=== PATIENT | male | born 1980 | race Caucasian/White ===

== ENCOUNTER 2019-12-31 13:49 | Inpatient (IN) | payer OTHER ==
[~2019-12-31] VITALS: Ht 190.5 cm; Wt 160.1 kg
[~2019-12-31 13:49] MED LIST: ADVIL200 MG PO; BACTRIM 400-801 EACH PO; BACTRIM DS TAB1 EACH PO; BUPRENORPHINE HC8 MG SL; CIPRO500 MG PO; CORTISPORIN EAR10 ML AD; IBUPROFEN800 MG PO; KEFLEX500 MG PO; KETOROLAC TROME10 MG PO; NORCO 5-325 TA1 EACH PO; OXYCODONE HCL5 MG PO; PYRIDIUM200 MG PO; SUBOXONE 8 MG-1 EAC1 SL; VICOPROFEN 2001 EACH PO; ZANAFLEX4 M1 PO
--- OUTSIDE RECORDS SUMMARY | 2019-12-31 13:52 | XMS ---
PreManage Notification: ERIKA SHEIKH Security Gallery Manager Events No recent Security Events currently on file [facility] There are no care providers on record at this time. Keisha has no Care Guidelines for this patient. Jen VISIT COUNT (12 MO.) 1 HOLLI Williamson TOTAL 1 NOTE: Visits indicate total known visits. ED/C VISIT TRACKING (12 MO.) 12/31/2019 13:50 HOLLI Morales OR TYPE: Emergency COMPLAINT: - LT LEG PAIN INPATIENT VISIT TRACKING (12 MO.) No inpatient visits to display in this time frame [email or web address]
[2019-12-31] MEDS ORDERED: VYVANSE70 MG PO (15:52)
--- NOTE | 2019-12-31 17:30 | NUR ---
39 year old male patient admitted to ccu from er via stretcher under DR. CONTRERAS WITH DX OF SEPSIS R/T CELLULITIS OF LEFT LEG. UPON ADMIT IS ALERT, ORIENTED AND COOPERATIVE. C/O SEVERE PAIN IN LEFT LEG. RATES PAIN 10/10. LEFT LEG ELEVATED ON 2 PILLOWS. ADMISSION PROCESS STARTED.
--- NOTE | 2019-12-31 18:00 | NUR ---
TORADOL 30 MG IV GIVEN FOR LEFT LEG PAIN.
--- NOTE | 2019-12-31 21:05 | NUR ---
IN ROOM FOR PATIENT ASSESSMENT. PT STATES PAIN HAS DECREASED IN LEFT LEG TO 5/10 AT THIS TIME. REDNESS IN LEFT LEG EXTENDS UP INTO LEFT INNER THIGH NEAR GROIN. AREA IS WARM AND PAINFUL TO TOUCH. RIGHT LEG HAS SLIGHT PINK DISCOLORATION AND OLD BRUISING. IV FLUIDS INFUSING AT THIS TIME. SCHEDULED MEDICATIONS GIVEN. PT AMBULATED TO BATHROOM WITH STAND BY ASSIST ONLY. BACK IN BED, CALL LIGHT WITHIN REACH. NO FURTHER NEEDS.
--- NOTE | 2019-12-31 22:00 | NUR ---
PT AT THIS TIME IS SLEEPING. V/S ARE WDL, PT DENIES PAIN. LEFT LOWER AND UPPER LEG WAS TRACED. NO NEW CONCERNS NOTED AT THIS TIME.
--- NOTE | 2020-01-01 00:57 | NUR ---
PT HAS A HEADACHE OF 4/10 FOR WHICH PRN TYLENOL WAS GIVEN. TEMP IS 100.1 F AT THIS TIME ALSO. PT DENIES PAIN IN LLE. REDNESS SO FAR HAS HAS STAYED UNCHANGED IN LLE. PEDIS PULSES +1 NON-PITTING EDEMA NOTED IN BILATERAL LOWER LEGS, LEFT HAND AND FOREARM WHICH PT STATED BEING NORMAL FOR HIM. HR IS STILL 100-115. WILL CONTINUE TO MONITOR.
--- NOTE | 2020-01-01 02:03 | EKG ---
[facility] [address] [facility] [place] [address] Signed Sinus tachycardia Right bundle branch block Inferior infarct , age undetermined Abnormal ECG Confirmed by SHAHRZAD CONTRERAS MD ([id number]) on 01/01/2020 2:02:50 AM Electronically Signed By: SHAHRZAD CONTRERAS MD 01/01/20 0203 PATIENT NAME: ERIKA SHEIKH ALAN Electrocardiogram DATE OF : 82 PHYSICIAN: SHAHRZAD CONTRERAS MD REPORT #: [id number] REPORT IS CONFIDENTIAL AND NOT TO BE RELEASED WITHOUT AUTHORIZATION
--- NOTE | 2020-01-01 03:00 | NUR ---
PT IS SLEEPING AT THIS TIME. NO NEW CONCERNS NOTED AT THIS TIME.
--- NOTE | 2020-01-01 04:00 | NUR ---
PT HAS A TEMP OF 101.5 F. TORADOL TO BE GIVEN. BOTH HANDS HAVE SOME EDEMA AND REDNESS PRESENT. WILL CONTINUE TO MONITOR.
--- NOTE | 2020-01-01 05:27 | NUR ---
TURNED OFF IV FLUIDS BECAUSE BILATERAL HANDS ARE SIGNIFICANTLY EDEMATOUS AT THIS TIME. REDNESS ON BOTH HANDS IS UNCHANGED. NO CRACKLES NOTED AT THIS TIME.
--- NOTE | 2020-01-01 07:30 | NUR ---
REPORT RECIEVED. PATIENT IS RESTFUL IN BED.
--- NOTE | 2020-01-01 08:00 | NUR ---
ASSESSMENT DONE. TALKED WITH PATIENT ABOUT PLAN OF CARE FOR DAY, INDICATES UNDERSTANDING. LEFT LEG ELEVATED ON PILLOWS. ARLEY LONDONO.
--- NOTE | 2020-01-01 10:10 | NUR ---
up to bathroom to HAVE BM AND VOID 750 ML OF DARK ALEXI URINE. IS STABEL ON FEET. PATIENT SOMEWHAT TEARY WISHES TO GO HOME. DR. CONTRERAS AWARE.
--- NOTE | 2020-01-01 12:00 | NUR ---
assessment done. REFUSING LUNCH. WILL BE TRANSFERED TO MED-SURG THIS AFTERNOON.
--- NOTE | 2020-01-01 14:21 | NUR ---
SARA NOGUERA FELT IT WOULD BE BEST IF I WAIT TO VISIT PT-RESTING. WILL FOLLOW NEEDED
--- NOTE | 2020-01-01 14:45 | NUR ---
AMBULATED TO [facility]. TOLERATED WELL. DENIES SHORTNESS OF BREATH .
--- NOTE | 2020-01-01 15:00 | NUR ---
Patient arrives to unit ambulatory with a steady gait and SBA. Patient to bed with magnesium running at 50mls/hr. Patient vitals taken and assessment complete. Reports pain of 4/10, prn pain medication given (see MAR). Denies further needs, call light within reach.
--- NOTE | 2020-01-01 16:00 | NUR ---
Lab in room for blood draw for [facility]. Patient laying in bed watching tv. Family in room. Denies needs at this time, call light within reach.
--- NOTE | 2020-01-01 17:00 | NUR ---
Patient laying in bed watching tv. Denies pain, no needs at this time. Call light within reach.
--- NOTE | 2020-01-01 18:40 | NUR ---
Patient reports burning at IV site with IV vanco running. Infusion stopped. New IV site being assessed.
--- NOTE | 2020-01-01 19:02 | NUR ---
SHIFT REPORT RECEIVED FROM RN GRIS AT BEDSIDE. PT AWAKE AND RESTING IN BED. SCHEDULED VANCO HANGING AT BEDSIDE DUE TO PAIN WHEN INFUSING ON , ED RN TO COME AND ATTEMPT NEW IV START. PT DENIES FURTHER NEEDS, REDDNESS TO LLE OUTLINED WITH SKIN MARKER, WILL MONITOR. BOARD UPDATE, CALL LIGHT IN REACH. PT DENIES PAIN AT THIS TIME.
--- NOTE | 2020-01-01 19:51 | NUR ---
ED RN UNABLE TO PLACE NEW IV, RETURNED ITEM CLERK MAYGAN IN ROOM TO ATTEMPT. PT DENIES ADDITIONAL NEEDS, CURRENTLY RESTING IN BED.
--- NOTE | 2020-01-01 20:00 | NUR ---
NEW IV PLACED AND IV VANCO INFUSING BY CRM ANALYST KIM.
--- NOTE | 2020-01-01 21:00 | NUR ---
ASSESSMENT COMPLETE, SCHEDULED MEDS GIVEN (SEE EMAR). IV VANCO INFUSING, SITE WNL. PT DENIES PAIN AT SITE WELL IN GENERAL. VSS, APICAL HR 110. WILL MONITOR. PT DNEIES SOB OR CHEST PAIN. OUTLINES REDDNESS REMAINS THE SAME FROM BEGINNING OF SHIFT, MIMIALLY PAST INITIAL OUTLINE. REOUTLINED BY THIS RN. WILL MONITOR. LLE WARMER TO THE TOUCH COMPARED TO RLE. LLE ELEVATED WITH USE OF PILLOWS. PT DENIES FURTHER NEEDS, CALL LIGHT IN REACH.
--- NOTE | 2020-01-01 21:57 | NUR ---
ORDER PLACED TO BE CONSIDERED FOR PICC LINE DUE INABILITY TO SUCCESSFULY START AND MAINTAIN IV ACCESS DUE TO VEIN STATUS.
--- NOTE | 2020-01-01 22:45 | NUR ---
IV VANCO COMPLETE, SCHEDULED IV ANCEF INFUSING (SEE EMAR). PT DENIES PAIN, IV SITE WNL. AFTER ANCEF WAS COMPLETE, PT SALINE LOCKED. NO FURTHER NEEDS, CALL LIGHT IN REACH.
--- NOTE | 2020-01-02 00:53 | NUR ---
PT RESTING IN BED WITH EYES CLOSED. RR WNL, NO SIGNS OF PAIN OR DISTRESS NOTED. CALL LIGHT IN REACH OF PT.
--- NOTE | 2020-01-02 01:30 | NUR ---
PT RESTING IN BED WITH EYES CLOSED, RESPIRATIONS EVEN AND UNLABORED. NO DISTRESS NOTED. CALL LIGHT IN REACH.
--- NOTE | 2020-01-02 03:22 | NUR ---
PT RESTING IN BED WITH EYES CLOSED, RESPIRATIONS EVEN AND UNLABORED. RATE, 16. PT APPEARS COMFORTABLE, CALL LIGHT IN REACH.
--- NOTE | 2020-01-02 04:00 | NUR ---
scheduled iv vanco infusing (see emar). iv site wnl, blood return noted. pt denies pain w/ infusion. assessment complete, no new changes or concerns. pt reports 3/10 pain in lle, prn toradol and prn tylenol both administered per pt request (see emar). no changes in lle appearance, ble remain elevated with use of pillows. pt voided 600mls dark yellow urine. gatorade provided per pt request, no further needs, call light in reach.
--- NOTE | 2020-01-02 04:58 | NUR ---
PT RESTING IN BED WITH EYES CLOSED. IV VANCO INFUSING AT 275MLS/HR, SITE WNL. CALL LIGHT IN REACH.
--- NOTE | 2020-01-02 05:02 | NUR ---
NEW IV PLACED BY HEREDITARY CANCER PROGRAM COORDINATOR AT BEGINNING OF SHIFT D/T BURNING WITH VANCO INFUSION. NEW IV SITE WNL, BLOOD RETURN NOTED. SALINE LOCKED WITH SCHEDULED IV VANCO AND IV ANCEF. PAIN CONTROLLED WITH PRN TORADOL X1 AND PRN TYLENOL X1. USES CALL LIGHT APPROPERIATELY, SBA WITH AMBULATION. REGULSR DIET, TOLERATING WELL. NO NAUSEA REPORTED AND VOIDING QS. NO CHANGE SINCE BEGINNING OF SHIFT IN APPEARANCE TO LLE.
--- NOTE | 2020-01-02 06:04 | NUR ---
VSS, PT DENIES PAIN. IV ABX INFUSING, SITE WNL. ROOM TIDED, NO FURTHER NEEDS VERBALIZED. CALL LIGHT IN REACH.
--- NOTE | 2020-01-02 06:29 | NUR ---
SCHEDULED IV ANCEF INFUSING (SEE EMAR), SITE WNL. PT DENIES PAIN AT SITE, FLUSHES EASILY. PT VERY DIFFICULT STICK AND POKED MANY TIMES DUE TO LOSS OF PREVIOUS IV SITES. DISCUSSED WITH WASH PLANT OPERATOR, PUMP PROGRAMED TO BE TKO AFTER IV ABX INFUSION, RATE 15MLS/HR. PT HAS PICC CONSULT ORDER IN PLACE. NO FURTHER NEEDS, CALL LIGHT IN REACH.
--- NOTE | 2020-01-02 07:53 | NUR ---
PT AWAKE EARLY THIS AM, UP TO BATHROOM TO VOID, KEEPING LLE ELEVATED, REDNESS HAS DECREASED. PT REPORTS PAIN IN MUCH BETTER, STATES HE WANTS TO GO HOME TODAY, AGREED TO TALK TO MD FIRST. IV IS TAPED SECURELY MARYLU, KEEPING AT TKO RATE TO MAINTAIN PATIENT IS A VERY DIFFICULT START. SPOKE WITH DAVID THIS MORNING AND PLAN IS FOR MID-LINE PLACEMENT LATER THIS AM. BREAKFAST ORDERED. CALL LIGHT IN EASY REACH.
--- NOTE | 2020-01-02 09:27 | NUR ---
MED REC COMPLETE
--- NOTE | 2020-01-02 10:05 | NUR ---
PT RESTING IN BED. STATED "I WANT TO GO HOME" AND TEARFUL. DISCUSSED WAITING UNTIL AFTER SHOWER TO APPLY NICODERM PATCH. PT AGREABLE TO SHOWERING BEFORE LUNCH. BREATHING UNLABORED AND REGULAR.
--- NOTE | 2020-01-02 11:44 | NUR ---
PT DECLINED LUNCH AND IS RESTING.
--- NOTE | 2020-01-02 12:57 | NUR ---
SCHEDULED VANCOMYCIN DOSE INFUSING, PT WOKE BRIEFLY TO DENY ANY NEEDS OR PAIN, KEEPING LLE ELEVATED, PULLED BLANKET OVER HEAD AND STATED I JUST WANT TO BE LEFT ALONE SO I CAN SLEEP. CALL LIGHT IN EASY REACH.
--- NOTE | 2020-01-02 13:19 | NUR ---
PT RESTING IN BED, WATCHING TV. PT SEEMS SOMEWHAT SKEPTICAL OF ME, BUT DID INVITE ME IN. PT IS OBVIOUSLY FRIGHTENED, WORKED TO CALM HIS FEARS. GOT PT TO SHARE WITH ME SOMEONE OUTSIDE TOLD HIM HE COULD HAVE A PICCLINE AND GET TO B DC'D AND ADMINISTER MEDS HIMSELF. HE STATES OFTEN "I WANT TO GO HOME" SHARED WITH PT MY EXPERIENCE, CALMED HIM SOME AND SHARED THE IMPORTANCE OF PROPER TREATMENT. PT REQUESTED PRAYER, THANKED ME FOR COMING IN. WILL ALSO FOLLOW UP.
--- NOTE | 2020-01-02 15:42 | NUR ---
JORI-RN HERE FOR MID-LINE PLACEMENT, PT CALM AND AGREES TO PLACEMENT.
--- NOTE | 2020-01-02 15:56 | NUR ---
1330 In room to round on patient. Patient currently in tears, states he "hates it here and just wants to leave". [facility] student nurse also in room at this time. Discussed Dario's feelings with him, and he allowed me to look at his left leg and foot. It is noted that the redness in his lef and foot is extended beyond the marker lines that have been made previously, but while on antibiotics per Dario's comments. It is also noticed that his lower left extremity is swollen. I again let Dario share his feelings of wanting to leave and then re-interated the importance of him staying and getting proper medical treatment. I am not sure that he will not leave against medical advice (AMA) based on his remarks in our conversation, but I definately encouraged him to listed to the advice of the hospitalist as our goal is for successful healing and a safe discharge. Dario did say that he was happy with the care that the nurses have been providing.
--- NOTE | 2020-01-02 16:45 | NUR ---
MIDLINE INSERTION NOTE WAS ASKED TO ASSESS PT FOR MIDLINE PLACEMENT PT HAS POOR ACCESS AND IS DIFFICULT TO OBTAIN IV ACCESS. PT NEEDING IV VANCOMYCIN. DISCUSSED WITH PT'S NURSE AND DR. CONTRERAS ABOUT PT'S USE OF ILLICIT DRUGS AND MY CONCERNS ABOUT PLACING A LINE THAT THE PT COULD GO HOME WITH. BOTH PARTIES STATE THE MIDLINE WILL BE TAKEN OUT BEFORE THE PT LEAVES THE HOSPITAL. OBTAINED VERBAL CONSENT FROM THE PT ABOUT PLACING THE LINE, RISKS AND BENEFITS. PT IS AGREEABLE AND WILLING TO PROCEED. PT'S LEFT ARM ASSESSED PT HAS AN ACTIVE IV IN HIS RIGHT UPPER ARM. PT'S BASILIC AND BRACHIAL VEINS WERE IDENTIFIED. UNABLE TO IDENTIFY PT'S CEPHALIC. THE BRACHIAL VEIN WAS MUCH LARGER THAN THE BASILIC VEIN AND APPEARED TO BE THE BEST OPTION. ACCORDING TO THE [facility] IT WAS LARGER THAN AN 8 FR. PT'S VEIN WAS DIFFICULT TO ACCESS AND TOOK 3 ATTEMPTS. THE PT'S VEINS WERE DEEP AND REQUIRED A LONGER IV TO ACCESS AND WAS DIFFICULT TO THREAD UP THE VEIN. BLOOD WAS RETURNED AND THE GUIDEWIRE ADVANCED ALONG WITH THE INTRODUCER AND THE MIDLINE. BLOOD RETURNED EASILY FROM THE INTRODUCER WELL. THE MIDLINE WAS SECURED AND A PRESSURE DRESSING OF GAUZE AND COBAN PLACED OVER THE TOP OF THE DRESSING THE INSERTION SITE WAS LEAKING. YOLANDA MITCHELL RN GIVEN REPORT AND EDUCATED THE DRESSING WOULD NEED TO BE CHANGED IN THE NEXT 24 HOURS. ALL QUESTIONS ANSWERED. PT TOLERATED THE PROCEDURE WELL. EDUCATION BOOKLETS PROVIDED.
--- NOTE | 2020-01-02 18:20 | NUR ---
PT TOLERATED MIDLINE PLACEMENT WELL. AMBULATED TO BR, UP IN CHAIR. AGREEABLE AND ENGAGED WITH CARE. AFFECTED LEG ELEVATED BY PILLOWS. REDNESS DOES NOT APPEAR TO HAVE RECEDED FROM AM. FAMILY BY THE BEDSIDE. PT DECLINED DINNER, EATING MCDONALDS INSTEAD.
--- NOTE | 2020-01-02 18:39 | NUR ---
MIDLINE PLACED, PATENT, 2CM EXPOSED, 39CM ARM CIRCUMFERENCE. CURRENTLY HAS DRSG AND WRAP ON UNSUCCESSFUL START SITE TO PREVENT BLEEDING. PT TOLERATED PROCEDURE WELL.
--- NOTE | 2020-01-02 21:52 | NUR ---
PT RESTING IN BED, A&O X4. PT HAS LEFT LEG ELEVATED ON A PILLOW. LEFT LOWER LEG REDENNED AREA MARKED WITH PEN; SUPERIOR MARKED AREA PINK AND RECEDING A BIT. LOWER LEFT LEG REGION IS RED AND HOT TO TOUCH; REDNESS IN LOWER REGION REMAINS MOSTLY WITHIN MARKED BORDERS. PT REPORTS PAIN TO TOUCH IN LLE. PEDAL PULSE INTACT BILAT.
--- NOTE | 2020-01-02 22:39 | NUR ---
PT REPORTS PAIN TO LEFT MIDLINE SITE. IV FLUIDS STOPPED AT THIS TIME. SITE APPEARS SWOLLEN AND SMALL AMOUNT OF BLOOD LEAKING FROM DRESSING. LEFT ARM ELEVATED AND WARM COMPRESS APPLIED. CMS INTACT TO LEFT ARM.
--- NOTE | 2020-01-02 23:19 | NUR ---
PT REQUESTING SHOWER AT THIS TIME. SHOWER ROOM SET UP FOR PT. ENCOURAGED PT TO CALL STAFF WHEN HE IS DONE.
--- NOTE | 2020-01-02 23:52 | NUR ---
LEFT MIDLINE INFILTRATED. PT REPORTING INTOLERABLE PAIN AT SITE. UNABLE TO PULL BACK BLOOD. MEASURED ARM 40CM. CATHETER TIP INTACT UPON REMOVAL; 20CM IN LENGTH. PT TOLERTED REMOVAL WELL. ARM ELEVATED, WARM COMPRESS APPLIED. SPOTTER DRIVER IN TO ATTEMPT NEW IV SITE.
--- NOTE | 2020-01-03 00:15 | NUR ---
ATTEMPTED X2 TO ESTABLISH PIV. UNSUCCESSFUL. BEDSIDE RN NOTIFIED.
--- NOTE | 2020-01-03 00:17 | NUR ---
DR. CONTRERAS MADE AWARE THAT MIDLINE INFILTRATED. ALSO NOTIFIED DR. CONTRERAS THAT PT DID NOT RECEIVE APPROX 1/3 OF LAST DOSE OF VANCO IV D/T IV GOING BACK MID INFUSION. ORDER CLERK UP TO SEE PT AND ATTEMPTED IV START X2; BOTH UNSUCCESSFUL. WILL CONTINUE TO MONITOR.
--- NOTE | 2020-01-03 06:49 | NUR ---
VITALS AND I&OS DONE AND CHARTED. EMPTIED ALL GARBAGES. CLEANED UP ROOM. BEDSIDE TABLE AND CALL LIGHT IN REACH.
--- NOTE | 2020-01-03 07:20 | NUR ---
Bedside report received, orders acknowledged. Patient laying in bed awake. Denies pain in left lower extremity. Denies further needs at this time, call light within reach.
--- NOTE | 2020-01-03 09:45 | NUR ---
Patient laying in bed watching tv. Denies pain in left lower extremity. Vital signs taken, assessment complete. Denies further needs at this time, call light within reach.
--- NOTE | 2020-01-03 10:28 | NUR ---
PT RESTING IN BED. AMBULATED TO SHOWER; LINENS CHANGED. PT STATED HAVING 3/10 PAIN RELATED TO HEADACHE RADIATING TO SCALP. ADMINISTERED 650 MG TYLENOL. WILL REASSESS WHEN PT AWAKES.
--- NOTE | 2020-01-03 11:30 | NUR ---
Patient sleeping in bed, respirations even and unlabored. Call light within reach.
--- NOTE | 2020-01-03 12:15 | NUR ---
Patient sitting up in bed eating lunch and watching tv. Reports "I'm so frustrated, I'm ready to leave and go to [facility]. I'm not even getting IV antibiotics!" POC is discussed with patient regarding Dr. Abarca's consult for a central line and the priority of his care for administering IV abx. Patient is agreeable to the POC. Denies further needs at this time, call light within reach.
--- NOTE | 2020-01-03 12:23 | NUR ---
PT RESTING AFTER LUNCH. STATED HE IS FRUSTRATED WAITING FOR ANTIBIOTICS. REASSURED BY PRIMARY RN THAT DR LEON WILL CONSULT WITH PATIENT ON CENTRAL LINE. HEADACHE RESOLVED BUT SCALP PAIN CONTINUES 2/10 RATING. PT STATES REST HELPS. NO PAIN IN LLE; REDNESS AT DRAWN BOUNDARY; NO VISABLE IMPROVEMENT. NO SWELLING OR HEAT AT MIDLINE INSERTION SITE. EXPIRATORY WHEEZING IN LOWER RIGHT LOBE. CALL LIGHT IN REACH.
--- NOTE | 2020-01-03 14:00 | NUR ---
Patient sleeping in bed, respirations even and unlabored. Call light within reach.
--- NOTE | 2020-01-03 15:00 | NUR ---
Patient leaves unit via hospital bed to OR for central line placement
--- NOTE | 2020-01-03 16:30 | NUR ---
Patient returned to floor from OR. Triple lumen IJ placed. Father at bedside. IV ancef and IV vanco hung and infusing. Patient requests warm wipes for legs and lower back which are provided. Denies further needs, call light within reach.
--- NOTE | 2020-01-03 17:30 | NUR ---
Patient laying in bed watching tv. Dinner delivered. Denies needs at this time, call light within reach.
--- NOTE | 2020-01-03 20:00 | NUR ---
PATIENT RESTING QUIETLY WATCHING TV, CALL LIGHT IN REACH, NO NEEDS AT THIS TIME.
--- NOTE | 2020-01-03 22:06 | NUR ---
PATIENT HAVING SOME LOW BACK PAIN AND GOT TYLENOL WITH EVENING MEDS. IJ DRAWS AND FLUSHES WELL, HE LOCKED AFTER 20MLS NS. PATIENT HAD NO OTHER NEEDS AT THIS TIME, LEGS ELEVATED ON PILLOWS. CALL LIGHT IN REACH.
--- NOTE | 2020-01-03 22:58 | NUR ---
PATIENT RESTING QUIETLY SUPINE, EYES CLOSED, RESPIRATIONS REGULAR AND NORMAL, CALL LIGHT IN REACH.
--- NOTE | 2020-01-04 01:07 | NUR ---
PATIENT RESTING QUIETLY, 0100 IV MEDS HUNG, CALL LIGHT IN REACH.
--- NOTE | 2020-01-04 03:05 | NUR ---
PATIENT RESTING QUIETLY IN BED, RESPIRATIONS REGULAR AND EVEN AND CALL LIGHT IN REACH.
--- NOTE | 2020-01-04 03:56 | NUR ---
PATIENT JUST UP TO THE BATHROOM INDEPENDENT AND VOIDED AND HAD MEDIUM LIQUID MUCOID STOOL. WARM PACK AND TYLENOL GIVEN FOR 5/10 BACK PAIN. CALL LIGHT IN REACH, PATIENT BACK IN BED AND TRYING TO GET MORE SLEEP.
--- NOTE | 2020-01-04 06:17 | NUR ---
GAVE PATIENT'S AM IV MEDS AND FLUSHED WITH 20MLS NS TO LOCK UP THE PORT. PATIENT SAID THIS HAS BEEN THE BEST NIGHTS SLEEP HE HAS HAD SINCE HE HAS BEEN HERE. HE HAS BEEN UP TO THE BATHROOM INDEPENDENTLY, HAS A WARM PACK ON HIS BACK AND SAYS HE IS "FEELING PRETTY GOOD RIGHT NOW." CALL LIGHT IS IN REACH AND HE IS GOING TO TRY AND GET SOME MORE SLEEP.
--- NOTE | 2020-01-04 06:47 | OR ---
[facility] [address] [place], [place] [address] Signed DATE OF OPERATION: 01/03/2020 SURGEON: Nighat Leon MD PREOPERATIVE DIAGNOSES: 1. Lack of peripheral IV access. 2. Left lower extremity cellulitis. 3. Morbid obesity. 4. Obstructive sleep apnea. POSTOPERATIVE DIAGNOSES: 1. Lack of peripheral IV access. 2. Left lower extremity cellulitis. 3. Morbid obesity. 4. Obstructive sleep apnea. PROCEDURES: 1. Placement of right internal jugular triple-lumen catheter. 2. Physician-directed ultrasound. ESTIMATED BLOOD LOSS: Minimal. INDICATIONS: Dario is a 39-year-old morbidly obese gentleman, who unfortunately developed significant cellulitis of his left lower extremity. He has been in the hospital requiring IV antibiotics including vancomycin. He has been very difficult for his peripheral access given his previous drug abuse. In fact, he had a midline yesterday and it was not functioning well, so the nurses had removed it during the night. I have been asked as a general surgeon on-call to place a central venous catheter for Dario. I met with Dario and explained him given his size, his very heavy full neck, it was best we do this down in the operating room under controlled conditions with our ultrasound and my OR nursing staff to help. I reviewed with him the nature of a central venous catheter in the concept of the ultrasound guidance. He understands the nature of a central venous catheter. He understands there is risk including, but not limited to bleeding, infection, catheter embolization, air embolism, and pneumothorax requiring chest tube placement. He expressed understanding and wished to proceed. PROCEDURE NOTE: Dario was taken to the operating room and was placed in the supine Trendelenburg Electronically Signed By: NIGHAT LEON MD 01/04/20 0647 PATIENT NAME: DARIO SHEIKH OPERATIVE REPORT DATE OF : 82 REPORT #: [id number] PHYSICIAN: NIGHAT LEON MD PCP: NO PRIMARY CARE PHYSICIAN REPORT IS CONFIDENTIAL AND NOT TO BE RELEASED WITHOUT AUTHORIZATION [facility] [address] [place], [place] [address] Signed position. He was already on preoperative antibiotics. His entire right neck and chest wall were prepped and draped in the usual sterile fashion. The ultrasound was used to find his internal jugular vein and carotid artery. Local anesthetic was injected in the subcutaneous tissues. Dario has a very thick neck and his jugular vein is almost 3 cm deep, may be a little more. We had accessed the vein on our first try and then we lost a lumen. On our second try, we had pulsatile blood, so we had to hold pressure for 5 minutes. After that, we moved down the neck just a bit and injected some additional local anesthetic to reassess the internal jugular vein and carotid artery. We then passed the needle under direct visualization ultrasound directly into the internal jugular vein and on this occasion, we were able to maintain the lumen and man back nonpulsatile dark venous blood. We took him out of Trendelenburg and then we had passed a wire without difficulty. The tract was dilated and a dilator tract passed along the correct direction without any resistance. A triple-lumen catheter was inserted up to 18 cm at the neck and each port was able to draw and flush quite readily. We instilled concentrated heparin in all three lumens. After this, the catheter was held in place on his neck with interrupted silk sutures. Dry plastic occlusive dressing was applied per nursing staff. We then performed a portable chest x-ray and the catheter was in good position, although very high in the superior vena cava if not slightly above it. There was no evidence of pneumothorax. I explained to Dario this would be fine for his IV antibiotics. No need to reposition the catheter. After this, Dario was transferred over to his hospital bed and taken down to his room in stable condition. Nighat Leon MD ALB/MODL /[id number] cc: MD Nighat Ruffin MD Copies: DEANNE DANIEL MD Electronically Signed By: NIGHAT LEON MD 01/04/20 0647 PATIENT NAME: DARIO SHEIKH OPERATIVE REPORT DATE OF : 82 REPORT #: [id number] PHYSICIAN: NIGHAT LEON MD PCP: NO PRIMARY CARE PHYSICIAN REPORT IS CONFIDENTIAL AND NOT TO BE RELEASED WITHOUT AUTHORIZATION [facility] [address] [place] [address] [place], [place] [address] Signed NIGHAT LEON MD ~ Electronically Signed By: NIGHAT LEON MD 01/04/20 0647 PATIENT NAME: DARIO SHEIKH OPERATIVE REPORT DATE OF : 82 REPORT #: [id number] PHYSICIAN: NIGHAT LEON MD PCP: NO PRIMARY CARE PHYSICIAN REPORT IS CONFIDENTIAL AND NOT TO BE RELEASED WITHOUT AUTHORIZATION
--- NOTE | 2020-01-04 07:21 | NUR ---
Report received, orders acknowledged. Patient reports "I slept great." Denies needs at this time, call light within reach.
--- NOTE | 2020-01-04 08:15 | NUR ---
Patient laying in bed watching tv. Breakfast delivered. AM medications given, assessment complete. Patient reports pain of 3/10 in back of neck, prn acetaminophen given. No further needs, call light within reach.
--- NOTE | 2020-01-04 10:30 | NUR ---
Patient sleeping in bed, respirations even and unlabored. Call light within reach.
--- NOTE | 2020-01-04 10:36 | NUR ---
PATIENT IN BED RESTING, RN IN ROOM. CALL LIGHT IN REACH. NO FURTHER NEEDS AT THIS TIME.
--- NOTE | 2020-01-04 12:15 | NUR ---
Patient laying in bed watching tv. Reports family is bringing lunch for patient. IV vanco infusing currently. Denies needs at this time, call light within reach.
--- NOTE | 2020-01-04 13:35 | NUR ---
Patient requests shower from waist down, all supplies set up in room. Importance of keeping central line clean, dry, and intact discussed. Denies further needs, call light within reach.
--- NOTE | 2020-01-04 14:51 | NUR ---
PATIENT IN BED WATCHING TV. VISITORS IN ROOM. CALL LIGHT IN REACH. NO FURTHER NEEDS AT THIS TIME.
--- NOTE | 2020-01-04 15:46 | NUR ---
Patient laying in bed watching tv. IV abx finished infusing. Denies needs at this time, call light within reach.
--- NOTE | 2020-01-04 17:30 | NUR ---
Patient sleeping in bed, respirations even and unlabored. Call light within reach.
--- NOTE | 2020-01-04 18:39 | NUR ---
PATIENT IN BED EATING DINNER. CALL LIGHT IN REACH. NO FURTHER NEEDS AT THIS TIME.
--- NOTE | 2020-01-04 19:00 | NUR ---
RECEIVED REPORT FROM SARA LANDRY. pt RESTING IN BED REQUESTED A SHOWER PRIOR TO BED. NO FURTHER REQUESTS. DENIES PAIN AT THIS TIME. WHITEBOARD UPDATED. CALL LIGHT WITHIN REACH.
--- NOTE | 2020-01-04 21:19 | NUR ---
TEAM FOREMAN ROUNDING NOTE. PT RESTING IN BED. STATES THAT HE IS DONE WITH HIS FOOD TRAY, TRAY REMOVED FROM ROOM. PT DENIES FURTHER NEEDS AT THIS TIME. CALL LIGHT IN REACH. WHITE BOARD UPDATED.
--- NOTE | 2020-01-04 21:58 | NUR ---
ASSESSMENT DONE. VITALS AND I&O ENTERED. MEDICATIONS GIVEN (SEE MAR). pt REPORTED 4/10 HEADACHE AND BACK PAIN. REDNESS ON LLE WELL WITHIN THE OUTLINE, DENIES PAIN IN EXTREMITY. NICODERM PATCH REMOVED. BLOOD RETURN NOTED ON ALL LUMENS OF CENTRAL LINE. HEP LOCKED PER PROTOCOL. NO REQUESTS AT THIS TIME. CALL LIGHT WITHIN REACH.
--- NOTE | 2020-01-04 23:37 | NUR ---
ROUNDED ON pt. RESTING WITH EYES CLOSED, RESPIRATIONS REGULAR AND UNLABORED. CALL LIGHT WITHIN REACH.
--- NOTE | 2020-01-05 01:06 | NUR ---
VANCO INFUSING (SEE MAR). pt RESTING WITH EYES CLOSED, RESPIRATIONS REGULAR. CALL LIGHT WITHIN REACH.
--- NOTE | 2020-01-05 03:27 | NUR ---
IV ABX INFUSION COMPLETED. SL. ASSESSMENT DONE. NO CHANGES. NO REQUESTS AT THIS TIME. CALL LIGHT WITHIN REACH.
--- NOTE | 2020-01-05 05:51 | NUR ---
IV ABX INFUSED (SEE MAR). VITALS AND I&O RECORDED. PRN MED FOR 02/27 HEADACHE. NO FURTHER REQUESTS AT THIS TIME. CALL LIGHT WITHIN REACH.
--- NOTE | 2020-01-05 07:10 | NUR ---
Bedside report received, orders acknowledged. Patient sleeping, respirations even and unlabored. Call light within reach.
--- NOTE | 2020-01-05 08:30 | NUR ---
Patient sleeping in bed, rouses to voice. Lab in room, vanco trough drawn. AM medications given. Patient reports pain of 2/10 on his scalp, pain level is acceptable. Breakfast delivered. Patient states "I didn't sleep well last night, I'd like to snooze a little bit longer." Vital signs taken, assessment complete. Denies further needs at this time, call light within reach.
--- NOTE | 2020-01-05 09:49 | NUR ---
PATIENT IN BED RESTING. PATIENT WANTS TO TAKE SHOWER, SHOWER SET UP. CALL LIGHT IN REACH. NO FURTHER NEEDS AT THIS TIME.
--- NOTE | 2020-01-05 11:30 | NUR ---
Patient up to shower independently, supplies provided.
--- NOTE | 2020-01-05 12:00 | NUR ---
Patient returned to bed, IV vanco infusing. Denies needs at this time, call light within reach.
--- NOTE | 2020-01-05 12:30 | NUR ---
Patient reports sharp chest pain. Vital signs taken. BP of 150/81 and pulse of 96, SpO2 of 95%. Heart sounds regular, lungs sounds equal bilaterally. auctioneer tobacco and Dr. Beltre notified. Stat EKG ordered. Patient reports pain subsided after several seconds. Call light in reach.
--- NOTE | 2020-01-05 12:45 | NUR ---
RT in room performing EKG
--- NOTE | 2020-01-05 13:43 | NUR ---
PATIENT SHOWERED, IND. NEW GOWN PROVIDED. PATIENT IN BED RESTING NOW. FRESH WATER GIVEN. CALL LIGHT IN REACH. NO FURTHER NEEDS AT THIS TIME.
--- NOTE | 2020-01-05 15:47 | NUR ---
Patient sleeping in bed, respirations even and unlabored. Rouses to voice. IV abx finished infusing. Central line flushes and draws blood per protocol, heparin-locked. Patient up to toilet voiding. Denies needs at this time, call light within reach.
--- NOTE | 2020-01-05 17:28 | NUR ---
Patient sleeping in bed, rouses to voice. IV endy jacobo, infusing at 275 mls/hr. Patient denies needs at this time, call light within reach.
--- NOTE | 2020-01-05 18:11 | EKG ---
[facility] [address] [facility] [place], [place] [address] Signed Normal sinus rhythm Nonspecific intraventricular block Abnormal ECG When compared with ECG of 31-DEC-2019 14:28, No significant change was found Confirmed by DALLIN MATOS DO ([id number]) on 01/05/2020 6:11:29 PM Electronically Signed By: DALLIN MATOS DO 01/05/20 181 PATIENT NAME: ERIKA SHEIKH Electrocardiogram DATE OF : 82 PHYSICIAN: DALLIN MATOS DO REPORT #: [id number] REPORT IS CONFIDENTIAL AND NOT TO BE RELEASED WITHOUT AUTHORIZATION
--- NOTE | 2020-01-05 18:15 | NUR ---
PATIENT IN BED RESTING WITH EYES CLOSED. CALL LIGHT IN REACH. NO FURTHER NEEDS AT THIS TIME.
--- NOTE | 2020-01-05 19:10 | NUR ---
BEDSIDE REPORT RECEIVED FROM OFFGOING SARA LANDRY.
--- NOTE | 2020-01-05 22:52 | NUR ---
PT ASSESSMENT COMPLETE. PT RESTING IN BED WATCHING TV. PT RATES PAIN 3/10. DENIES PAIN MEDICATION. PT DENIES NAUSEA OR SOB. PT STATES THAT HE WOULD LIKE TO TAKE A SHOWER. SUPPLIES GATHERED AND LEFT IN THE BATHROOM. LLE WITH REDNESS WITHIN OUTLINE AREA. 2+ PITTING EDEMA PRESENT TO LLE. CMS INTACT. PT DENIES FURTHER NEEDS AT THIS TIME. CALL LIGHT IN REACH.
--- NOTE | 2020-01-05 23:45 | NUR ---
PT RESTING IN BED WITH EYES CLOSED. DOES NOT WAKE WHILE ROLLER LEVELER OPERATOR IN THE DOORWAY. CALL LIGHT IN REACH.
--- NOTE | 2020-01-06 01:41 | NUR ---
WRTIER TO ROOM FOR SCHEDULED MEDICATION ADMINISTRATION. PT STATES THAT HE FEELS EXCITED TO GO HOME TOMORROW, THINKS THIS IS KEEPING HIM AWAKE. WARM COMPRESS AND GATORADE PROVIDED. PT DENIES FURTHER NEEDS AT THIS TIME. CALL LIGHT IN REACH.
--- NOTE | 2020-01-06 03:30 | NUR ---
GUARD MUSEUM TO ROOM FOR PUMP ALARMING. ABX FINISHED. PT DOES NOT WAKE WHILE GUARD MUSEUM IN ROOM. CALL LIGHT IN REACH.
--- NOTE | 2020-01-06 05:08 | NUR ---
PT AWAKE MOST OF SHIFT, STATES "TOO EXCITED ABOUT GOING HOME TO SLEEP". DENIES PAIN, NAUSEA, OR SOB. REDNESS TO LLE WITHIN OUTLINE AREA. PITTING EDEMA, 2+, PRESENT TO LLE. PT UP TO SHOWER THIS SHIFT. PASCUAL TUBBS. IJ, HEP LOCKED. UO QS.
--- NOTE | 2020-01-06 05:54 | NUR ---
PT ASSESSMENT COMPLETE. PT DENIES PAIN, NAUSEA, OR SOB. PT WITH REDNESS TO LLE WITHIN OUTLINED AREA. EDEMA CONTINUES TO LLE, 2+. PT DENIES NEEDS AT THIS TIME. CALL LIGHT WITHIN REACH.
--- NOTE | 2020-01-06 08:00 | NUR ---
PT LYING IN BED APPEAS TO BE SLEEPING SOUNDLY, EYES CLOSED, RESP EVEN AND UNLABORED.
--- NOTE | 2020-01-06 09:15 | NUR ---
PT APPEARS TO BE SLEEPING UPON THIS RN ENTERING ROOM. AWOKE EASILY TO VOICE. PT DENIES PAIN OR OTHER CONCERNS AT THIS TIME. ALERT AND ORIENTED TO ALL. LEFT LOWER EXTREMITY MARKED WITH SURGICAL MARKER. MINIMAL REDNESS NOTED AND ALL WITHIN BORDERS, SLIGHLTY WARM TO THE TOUCH. RIGHT IJ DRESSING CDI, ALL THREE LUMENS FLUSH EASILY AND GOOD BLOOD RETURN NOTED. IV VANCO STARTED. ASSESSMENT COMPLETED. CALL LIGHT WITHIN REACH.
--- NOTE | 2020-01-06 10:15 | NUR ---
Dario lives in [place] with his parents and his girlfriend. Denies current needs or use of DME. Wants to go home today. Does not use food bank or [facility]. See Dr[facility] for buprenoprhine therapy. Does not have pcp and states he will establish with anyone. Called and made appointment for him to establish care with Odette Butler at [facility] 01/14/20 at 1 pm. They request he arrives 20 minutes early for paper work. Pt updated and states understanding.
[2020-01-06] MEDS ORDERED: DOXYCYCLINE HY100 MG PO (10:19)
--- NOTE | 2020-01-06 11:15 | NUR ---
ABX INFUSION COMPLETE AND PT UP TO SHOWER INDEPENDENTLY.
--- NOTE | 2020-01-06 12:30 | NUR ---
RIGHT IJ REMOVED AT THIS TIME. SUTURES REMOVED AND IJ REMOVED. GAUZE WITH ANTIBIOTIC OINTMENT APPLIED AND PRESSURE HELD FOR AT LEAST 2 MINUTES. OCCLUSIVE DRESSING APPLIED AND PT LIED FLAT FOR 10MINUTES. NO SIGNS OF BLEEDING OR OTHER ISSUES AT THIS TIME. PT DRESSED ON HIS OWN AND AWAITING DC INSTRUCTIONS. CALL LIGHT WITHIN REACH.
== END 2020-01-06 12:58 | disposition home or self-care (01) | DRG 872 ==
LOC: ED 13:49 → ER 13:50 → ED 13:50 → CCU 16:50 → MS 01-01 14:45
PROVIDERS: Colon & Rectal Surgery; ADMIT Internal Medicine
PROC: 02HV33Z Insertion of Infusion Device into Superior Vena Cava, Percutaneous Approach (ICD-10-PCS; principal; 2020-01-03 16:00)
DX: A41.9 Sepsis, unspecified organism (principal); L03.116 Cellulitis of left lower limb; Z68.41 Body mass index [BMI] 40.0-44.9, adult; E66.01 Morbid (severe) obesity due to excess calories; G47.33 Obstructive sleep apnea (adult) (pediatric); M54.9 Dorsalgia, unspecified; F11.21 Opioid dependence, in remission; G89.29 Other chronic pain; D69.6 Thrombocytopenia, unspecified; F90.9 Attention-deficit hyperactivity disorder, unspecified type; F17.210 Nicotine dependence, cigarettes, uncomplicated; Z79.899 Other long term (current) drug therapy; Z88.5 Allergy status to narcotic agent; Z88.8 Allergy status to other drugs, medicaments and biological substances; Z91.040 Latex allergy status
CPT/HCPCS: 36415; 36569; 71045; 80048; 80053; 80202; 82565; 83605; 83735; 84520; 85025; 87040; 93005; 93010; 93971; 99285-25; C1751; J0690; J1644; J1650; J1885; J3370; J3475; J7030; J7060; J7121

== ENCOUNTER 2020-04-06 00:11 | Emergency (ER) | payer OTHER ==
[~2020-04-06] VITALS: Ht 190.5 cm; Wt 151.9 kg
--- OUTSIDE RECORDS SUMMARY | ~2020-04-06 | XMS | Encounter Summary ---
Demographics + + + | Address | [address] | | | [place] [address] | + + + | Home Phone | | + + + | Preferred Language | Unknown | + + + | Marital Status | | + + + | Mandaen Affiliation | Unknown | + + + | Race | Unknown | + + + | Ethnic Group | Unknown | + + + Author + + + | Author | [facility] | | | and [place] | + + + | Organization | [facility] | | | and [place] | + + + | Address | Unknown | + + + | Phone | Unavailable | + + + Support + + + + + | Name | Relationship | Address | Phone | + + + + + | Kendrick Majano | ECON | [address] | | | | [place] | | | | | [address] | | + + + + + Care Team Providers + +------+ + | Care Truck Service Technician Name | Role | Phone | + +------+ + | Javon Delgado DO | PCP | | + +------+ + Reason for Referral Evaluate & Treat (Routine) +--------+ + + + + + | Status | Reason | Specialty | Diagnoses / | Referred By | Referred To | | | | | Procedures | Contact | Contact | +--------+ + + + + + | Closed | Specialty | Physical | Diagnoses | Danny | [facility] | | | Services | Therapy | Chronic low | Javon López DO | [facility] | | | Required | | back pain | [address] [facility] | | | | | | [address] [place] | [address] | | | | | | [place], [place] | AVE | | | | | | [address] | [place] | | | | | | Phone: | [phone] | | | | | | [phone] | Phone: | | | | | | Fax: | [phone] | | | | | | [phone] | Fax: | | | | | | | [phone] | +--------+ + + + + + Reason for Visit +--------+ + | Reason | Comments | +--------+ + | Other | | +--------+ + Encounter Details +--------+ + + + + | Date | Type | Department | Care Team | Description | +--------+ + + + + | 04/29/ | Telephone | [facility] | Javon Delgado, | Other | | 2013 | | [facility]IC[facility] [place] | DO [address] | | | | | [address] | [place] | | | | | [place] | [address] | | | | | [address] | | | | | | [phone] | | | +--------+ + + + + Social History + +-------+ +--------+------+ | Tobacco Use | Types | Packs/Day | Years | Date | | | | | Used | | + +-------+ +--------+------+ | Never Smoker | | | | | + +-------+ +--------+------+ + +---+---+---+ | Smokeless Tobacco: | | | | | Never Used | | | | + +---+---+---+ + + +---------+ + | Alcohol Use | Drinks/Week | oz/Week | Comments | + + +---------+ + | No | | | | + + +---------+ + + + + | Sex Assigned at | Date Recorded | | | | + + + | Not on file | | + + + + + + + | Job Start Date | Occupation | Industry | + + + + | Not on file | Not on file | Not on file | + + + + + + + + | Travel History | Travel Start | Travel End | + + + + + + | No recent travel history available. | + + documented as of this encounter Plan of Treatment + + +--------+ + + | Name | Type | Priori | Associated Diagnoses | Order Schedule | | | | ty | | | + + +--------+ + + | Ambulatory referral | Outpatient | Routin | Chronic low back | Ordered: 05/01/2013 | | to Physical Therapy | Referral | e | pain | | + + +--------+ + + documented as of this encounter Visit Diagnoses + + | Diagnosis | + + | Chronic low back pain - Primary Lumbago | + + documented in this encounter"
--- OUTSIDE RECORDS SUMMARY | ~2020-04-06 | XMS | Encounter Summary ---
Demographics + + + | Address | [address] | | | [place] [address] | + + + | Home Phone | | + + + | Preferred Language | Unknown | + + + | Marital Status | | + + + | Alevism Affiliation | Unknown | + + + | Race | Unknown | + + + | Ethnic Group | Unknown | + + + Author + + + | Author | [facility] | | | and [place] | + + + | Organization | [facility] | | | and [place] | [...] [place] | | | | | [address] | | + + + + + Care Team Providers + +------+ + | Care Square Cutter Name | Role | Phone | + +------+ + | Jolene Bear | PCP | | + +------+ + Reason for Visit + + + | Reason | Comments | + + + | Surgery Appointment | Reminder | + + + | Medical Clearance | | + + + Encounter Details +--------+ + + + + | Date | Type | Department | Care Team | Description | +--------+ + + + + | 02/09/ | Telephone | [facility] | Dario Koehler, | Surgery Appointment | | 2017 | | NEUROSURGERY [address] | DO [address] | (Reminder ); Medical | | | | [address] | [address] [place], [place] | Clearance | | | | [place], [place] | [id number] | | | | | [address] | | | | | | [phone] | | | +--------+ + + + + Social History + + + +--------+ + | Tobacco Use | Types | Packs/Day | Years | Date | | | | | Used | | + + + +--------+ + | Current Some Day | Cigarettes | 1 | 3 | Started: 11/20/2012 | | Smoker | | | | | + + + +--------+ + + +---+---+ + | Smokeless Tobacco: | | | Quit: | | Former User | | | 02/02/20 | | | | | 14 | + +---+---+ + + + | Comments: Chewed for about 1 week in 2005 | + + + + +---------+ + | Alcohol Use | Drinks/Week | oz/Week | Comments | + + +---------+ + | No | 0 Standard drinks | 0.0 | | | | or equivalent | | | + + +---------+ + [...] as of this encounter Plan of Treatment Not on filedocumented as of this encounter Visit Diagnoses Not on filedocumented in this encounter"
--- OUTSIDE RECORDS SUMMARY | ~2020-04-06 | XMS | Encounter Summary ---
Demographics + + + | Address | [address] | | | [place] [address] | + + + | Home Phone | | + + + | Preferred Language | Unknown | + + + | Marital Status | | + + + | Samaritan Affiliation | Unknown | + + + | Race | Unknown | + + + | Ethnic Group | Unknown | + + + Author + + + | Author | [facility] | | | and [place]omas[place] | + + + | Organization | [facility] | | | and Tomasana [...] [place] | | | | | [address] | | + + + + + Care Team Providers + +------+ + | Care Spotlight Operator Name | Role | Phone | + +------+ + | Jolene Bear | PCP | | + +------+ + Reason for Referral Diagnostic/Screening (Routine) +--------+--------+ + + + + | Status | Reason | Specialty | Diagnoses / | Referred By | Referred To | | | | | Procedures | Contact | Contact | +--------+--------+ + + + + | Closed | | Radiology | Diagnoses | Jamir | Shantell Mri | | | | | Chronic | Wojciech Lamb MD | [address] | | | | | midline low | [address] | [place], | | | | | back pain | [address] | [place] | | | | | with | [place], | [address] | | | | | left-sided | [place] [address] | Phone: | | | | | sciatica | Phone: | [phone] | | | | | Lumbar | [phone] | Fax: | | | | | radiculopath | Fax: | [phone] | | | | | y Annular | [phone] | | | | | | tear of | | | | | | | lumbar disc | | | | | | | Procedures | | | | | | | MRI Lumbar | | | | | | | Spine wo | | | | | | | Contrast | | | +--------+--------+ + + + + Reason for Visit + + + | Reason | Comments | + + + | Back Pain | Low back pain | + + + Evaluate & Treat (Routine) +--------+--------+ + + + + | Status | Reason | Specialty | Diagnoses / | Referred By | Referred To | | | | | Procedures | Contact | Contact | +--------+--------+ + + + + | Closed | | Physical | Diagnoses | Chema, | Wojciech Clark | | | | Medicine and | Lumbago | Jolene Todd, | Andre Lamb MD [address] | | | | Rehabilitatio | with | [address] | | | | n | sciatica, | [address] | [place], | | | | | unspecified | [place], | [place] [address] | | | | | side | [place] [address] | Phone: | | | | | Unspecified | Phone: | [phone] | | | | | abnormalitie | [phone] | Fax: | | | | | s of gait | Fax: | [phone] | | | | | and mobility | [phone] | | +--------+--------+ + + + + Encounter Details +--------+---------+ + + + | Date | Type | Department | Care Team | Description | +--------+---------+ + + + | 08/26/ | Office | [facility] | Wojciech Clark, | Chronic midline low | | 2016 | Visit | PHYSIATRY [address] | MD [address] | back pain with | | | | [address] | [place], [place] | left-sided sciatica | | | | [place], [place] | [address] | (Primary Dx); Lumbar | | | | [address] | | radiculopathy; | | | | [phone] | | Annular tear of | | | | | | lumbar disc; Tobacco | | | | | | dependence; Heroin | | | | | | use disorder, mild, | | | | | | in early remission, | | | | | | abuse | +--------+---------+ + + + Social History + + + +--------+------+ | Tobacco Use | Types | Packs/Day | Years | Date | | | | | Used | | + + + +--------+------+ | Current Every Day | Cigarettes | 1 | 3 | | | Smoker | | | | | + + + +--------+------+ + +---+---+---+ | Smokeless Tobacco: | | | | | Former User | | | | + +---+---+---+ + + | Comments: Chewed for about 1 week in 2005 | + + + + +---------+ + | Alcohol Use | Drinks/Week | oz/Week | Comments | + + +---------+ + | Yes | 0 Standard drinks | 0.0 | rare | | | or equivalent | | [...] + + documented as of this encounter Last Filed Vital Signs + + + + + | Vital Sign | Reading | Time Taken | Comments | + + + + + | Blood Pressure | 114/75 | 08/26/2016 11:07 AM | | | | | PDT | | + + + + + | Pulse | 89 | 08/26/2016 11:07 AM | | | | | PDT | | + + + + + | Temperature | - | - | | + + + + + | Respiratory Rate | 16 | 08/26/2016 11:07 AM | | | | | PDT | | + + + + + | Oxygen Saturation | - | - | | + + + + + | Inhaled Oxygen | - | - | | | Concentration | | | | + + + + + | Weight | 154.2 kg (340 lb) | 08/26/2016 11:07 AM | | | | | PDT | | + + + + + | Height | 190.5 cm (6' 3") | 08/26/2016 11:07 AM | | | | | PDT | | + + + + + | Body Mass Index | 42.5 | 08/26/2016 11:07 AM | | | | | PDT | | + + + + + documented in this encounter Patient Instructions Patient Instructions Wojciech Clark MD - 08/26/2016 11:53 AM PDTContinue exercises as out lined by physical therapy on a routine daily basis, indefinitely. Work toward weight loss through diet and excise. It is recommended that you stop smoking, as discussed during today's appointment. Talk to JANE Guzman and Dr. Navarro about medications that can be used for nerve pain (recommendations will be sent through chart notes). A MRI has been requested. Please complete the requested imaging. Within one week, you sylvia uld receive a call to schedule your MRI. If you have not heard from anyone within one week, please call the clinic. The results of your MRI will be reviewed at your next appointment. If your MRI demonstrates any emergent results, the clinic will contact you. Once MRI has been completed we will request injections with Dr. Kolb. Return to the clinic in 8 weeks to review response to injections. documented in this encounter Progress Notes Wojciech Clark MD - 08/26/2016 12:32 PM PDTThis office note has been dictated. Report Confirmation# [id number] signed by Wojciech Clark MD at 08/26/2016 12:34 PM PDTMarWojciech MD - 08/26/2016 12:32 PM PDT [facility] [address] [facility] [address] OFFICE NOTE WOJCIECH CLARK JR, MD Patient: ERIKA MAJANO Admitting: MR #: [id number] LOC: PT TYPE: Adm Date: 08/26/2016 : 1980 PHYSICAL MEDICINE REHABILITATION CONSULT DATE OF : 1980 PRIMARY CARE PROVIDER: JANE Zamarripa DATE OF SERVICE: 08/26/2016 PATIENT IDENTIFICATION: A 36-year-old male with back pain and left radicular symptoms. HISTORY OF PRESENT ILLNESS: The patient indicates that he first started having back pain in 2008. He indicates that pain lasted for a few weeks to months and then got better. He indicates that he felt better for half a year or more and then in 2009 his symptoms recurre d. Once again symptoms were temporary and then recurred. He indicates that he has had on and off symptoms over the last half decade. He indicates that his symptoms have been acut angela worse more severe than they have ever been before over the last 6-9 months. He indicat es that pain came on most recently without any specific injury. He indicates that his pain is currently a 5/10 on a numerical pain scale. Pain is constant in timing. He reports he has some good days and bad days. He indicates that pain is in the midline low back, radia harleen in the left lower extremity, it travels over the left lateral thigh, left lateral calf and into the left lateral ankle. He has numbness and paresthesia in the same distribution . He is uncertain if there is any weakness in the leg. He denies incontinence of bowel or bladder. He denies saddle anesthesia. He has had physical therapy for the back. He repor ts that it did not seem to make much of a difference. He has tried anti-inflammatory medi cations including Meloxicam and ibuprofen without much benefit. He is on buprenorphine to treat heroin addiction. He is finding that it offers some pain reducing effect. He has tr ied several muscle relaxants, including methocarbamol, cyclobenzaprine and tizanidine. He has found Tizanidine to be the most helpful so far. His last physical therapy visit was 1 month ago. He smokes cigarettes. He has been smoking for the last 3 years. He smokes a pack per day. He indicates that he will quit smoking once he has successfully quit his her oin habit. He indicates that he started using heroin several years ago. He indicates urbano t his left him and took the kids. It was after this that in a moment of crisis he sta rted using heroin. He indicates that he has not worked since 10/2012. He indicates that h is pain is unchanged over time. Quality of pain is shooting, numbing, tingling and throbb ing. Pain is moderate to severe. Pain is daily and continuous. He indicates that he has g one to the ER for his pain. He has never had interventional injections. He has never had back surgery. He has tried using traction for his back. ALLERGIES: HYDROCODONE, LATEX, METOPROLOL, OXYCODONE. CURRENT MEDICATIONS: Buprenorphine 8 mg sublingual 3 times per day. Gabapentin 300 mg 3 times per day. Ibuprofen 800 mg every 6 hours. Tizanidine 2 mg every 8 hours. REVIEW OF SYSTEMS: The patient denies nausea, vomiting, diarrhea, constipation, fever, ch ills, shortness of breath, or chest pain, denies skin breakdown or rash. Denies lymph glan d swelling or unexplained weight loss. All other review of systems negative. PHYSICAL EXAMINATION: VITAL SIGNS: Heart rate 89, respiratory rate 16, blood pressure 114/75, weight 340 pounds , height 6 feet 3 inches. GENERAL: No acute distress. Alert to person, place, time and situation. HEENT: Extraocular muscles intact. Sclerae are clear. NECK: Normal range of motion. Spurling's test negative. Axial loading test negative. HEART: Regular rate and rhythm, no murmurs, rubs or gallops. LUNGS: Clear to auscultatio n, no wheezing, no crackles. ABDOMEN: Distended, positive for bowel sounds, obese. BACK: Demonstrates moderate tenderness to palpation over midline lumbar spine and left quique mbar paraspinal muscles, approximate level L5-S1. Seated straight leg raise positive on the left, negative on the right. Flaco's test negative bilaterally. EXTREMITIES: Reveals no clubbing, cyanosis or edema in either lower extremity. There is no focal muscle atrophy in either lower extremity. There is no fasciculation in either lowe r extremity. NEUROLOGIC: Exam demonstrates intact cranial nerves. Memory intact. Speech normal. Sens ation, strength, coordination, reflexes grossly intact in both upper extremities. In the l ower extremities, there is 5/5 hip flexion, knee flexion, knee extension, ankle plantarflex ion, and extensor hallucis longus strength in both lower extremities. There is 4+/5 ankle dorsiflexion strength on the left compared to 5/5 on the right. In the left lower extremi ty, there is subjective decreased sensation over L5 and S1 dermatomes. In the right lower extremity there is normal intact sensation to monofilament testing. Reflexes are normal, 2+ over patellar and Achilles both lower extremities. Gait is normal. No foot drop, no fo ot slap. Normal coordination in both lower extremities. Romberg test negative. DATABASE: Lumbar MRI from 6 years ago in 2009, imaging personally reviewed by me demonstr ates lumbar degenerative disc disease at L4-5 and L5-S1. There are annular tears at both l evels. There is disc bulging at both levels. Please note that this imaging is more than h omar a decade old it is not likely indicative of current pathology and symptoms. Especiall y, with recent exacerbation of symptoms being worse than at previous levels of pain. ASSESSMENT: 1. 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 2. Left L5 radicul opathy, ICD-10 M54.16. 3. Annular tear at L4-5 and L5-S1, ICD-10 M51.36. 4. Tobacco dependence, ICD-10 F17.200. 5. Heroin use disorder, in early remission, ICD-10 F11.10. PLAN: The patient was advised to work towards weight loss through diet and exercise. We discussed weight and its impact on lumbar spondylosis and degenerative changes. The patient was advised to quit smoking. We discussed smoking and its contribution toward s lung disease, heart disease, cancer, . We also discussed that it may be a contribut ing factor towards degenerative changes of the spine. We discussed cutting back on nicotin e use and quitting. He is currently in the precontemplation phase of smoking cessation. He indicates that he is not really considering it at this time. He indicates that he is mo re focused on quitting heroin addiction at this time. He is advised to continue exercises as outlined by previous physical therapy. We discusse d the goals and purposes of physical therapy exercises. He is encouraged to continue these exercises on a routine daily basis indefinitely. He may benefit from additional medication for treatment of neuropathic pain. I am not cer tain that a muscle relaxant is doing him much good. I do not necessarily think that muscle relaxants need to be continued. I believe that his symptoms are primarily radicular in natu re. Focus should be on medication for neuropathic pain rather then muscle relaxant. Curr ent dose of gabapentin is low. He may benefit from tapering up gabapentin to dose of 600 m g 3 times per day. Addition, of medication for neuropathic pain such as an antidepressant may also be helpful. He could take this in combination with gabapentin. Alternatives incl ude starting nortriptyline at 10 mg tapering up to a dose of 50 mg over a few months. Anot her alternative would be a medication such as Effexor versus Cymbalta. He currently has m edications prescribed to him by his psychiatrist in [place]. He also receives medication s from his primary care provider. I will leave it to their communication and discretion as to whether or not to taper up gabapentin, start new medication nortriptyline or both. The patient has chronic pain. He has failed conservative treatments including anti-inflammat ory medication and physical therapy. He has symptoms consistent with radiculopathy. His p revious lumbar imaging is more than 5 years old. At this time, I am requesting a new lumba r MRI to evaluate for likely new disc herniation and origin of radicular symptoms. Future treatment considerations may include epidural steroid injection versus neurosurgical consu ltation and treatment. Given very mild to modest changes to strength at this time, I am un likely to recommend surgical intervention at this time. In summary, Mr. Majano will have lumbar MRI. He has been asked to continue physical therap y exercises. He is encouraged to lose weight through diet and exercise. More than 3 minut es was spent discussing smoking cessation plan. The patient should talk to Dr. Navarro and Edel Bear, about adjustment to medications such as tapering up gabapentin for additional medication such as nortriptyline versus Effexor versus Cymbalta. Once MRI has been complet ed we will review the imaging and consider epidural steroid injection versus neurosurgical consultation. Thank you for allowing me to be involved in the care of your patient. If you have any ques tions regarding the care of Mr. Majano, please do not hesitate to call. WOJCIECH CLARK JR, MD Dictated by WOJCIECH CLARK JR, MD 08/26/2016 12:32:12 Transcribed on 08/27/2016 10:05:37 by [facility] job# [id number] Confirmation #: [id number] cc: DEANNE NAVARRO MD docu mented in this encounter Plan of Treatment Not on filedocumented as of this encounter Procedures + +--------+ + + + | Procedure Name | Priori | Date/Time | Associated Diagnosis | Comments | | | ty | | | | + +--------+ + + + | IMAGING REPORT - | | 03/30/2016 | | Results for this | | EXTERNAL SCAN | | 12:00 AM | | procedure are in the | | | | PDT | | results section. | + +--------+ + + + | IMAGING REPORT - | | 03/30/2010 | | Results for this | | EXTERNAL SCAN | | 12:00 AM | | procedure are in the | | | | PDT | | results section. | + +--------+ + + + documented in this encounter Results MRI Lumbar Spine wo Contrast (09/14/2016 1:48 PM PDT) + + | Specimen | + + | | + + + + + | Narrative | Performed At | + + + | UNENHANCED MRI LUMBAR SPINE 09/14/2016 1:32 PM CLINICAL HISTORY: | [facility] | | chronic midline back pain with left leg numbness and weakness | [facility] | | COMPARISON: Lumbar CT March 2016, lumbar MRI March 2010 TECHNIQUE: | [facility] | | The following 3T MR sequences of the lumbar spine were obtained: 1. | - IMAGING | | Axial and sagittal T1. 2. Axial, sagittal, and coronal T2. 3. | | | Sagittal STIR. FINDINGS: Five non rib-bearing, lumbar type | | | vertebrae are suggested on the coronal sequence. There is mild | | | rightward lumbar curvature. Several small, benign hemangiomata are | | | again visible within the spine. Marrow signal is otherwise normal. | | | Small Schmorl's nodes persist within the lumbar and lower thoracic | | | vertebral endplates. Lumbar vertebral height and alignment are | | | otherwise maintained, without evidence of fracture, spondylolysis or | | | spondylolisthesis. The conus medullaris is unremarkable, terminating | | | at L1. The imaged intra-abdominal and paraspinal structures are | | | unremarkable. The T11-12, T12-L1, L1-2 and L2-3 levels are | | | unremarkable on provided sagittal images through the region. Mild | | | posterior disc bulge, congenitally short pedicles and dorsal | | | ligamentous and facet hypertrophy are present at L3-4, combining to | | | mildly narrow the central canal to a similar degree and mildly narrow | | | the neural foramina to a slightly greater degree. Bilateral facet | | | joint effusions persist. Disc desiccation and mild disc space | | | narrowing persist at L4-5. A central disc protrusion/extrusion has | | | increased and results in severe narrowing of the central canal, with | | | complete effacement of the thecal sac. There is encroachment on the | | | subarticular recesses and descending L5 nerve roots as well. | | | Underlying mild disc bulge again combines with ligamentous and facet | | | hypertrophy to mild to moderately narrow the neural foramina. Left | | | greater than right facet joint effusions persist. Disc | | | desiccation, mild disc space narrowing and a mild posterior disc bulge | | | persist at L5-S1, combining with dorsal ligamentous and facet | | | hypertrophy to mild to moderately narrow the neural foramina to a | | | similar degree. There is some encroachment on the descending S1 | | | nerve roots within the subarticular recesses. IMPRESSION - 1. | | | DEGENERATIVE DISC DISEASE AND PROGRESSIVE CENTRAL DISC | | | PROTRUSION/EXTRUSION AT L4-5 COMPARED WITH MRI OF MARCH 2010, WITH | | | SEVERE CENTRAL CANAL STENOSIS AND SUBARTICULAR RECESS ENCROACHMENT. | | | 2. SIMILAR DEGENERATIVE DISC DISEASE AND MILD TO MODERATE | | | FORAMINAL STENOSIS AT L5-S1 WITH ENCROACHMENT ON THE DESCENDING S1 | | | NERVE ROOTS. 3. MULTILEVEL FACET ARTHROPATHY. Dictated and | | | Signed by: Jack Kay MD Electronically signed: 09/14/2016 5:05 | | | PM | | + + + + + | Procedure Note | + + | Mina, Rad Results In - 09/14/2016 5:08 PM PDT UNENHANCED MRI LUMBAR SPINE 09/14/2016 | | 1:32 PMCLINICAL HISTORY: chronic midline back pain with left leg numbness and weakness | | COMPARISON: Lumbar CT March 2016, lumbar MRI March 2010TECHNIQUE: The following 3T MR | | sequences of the lumbar spine were obtained:1. Axial and sagittal T1.2. Axial, | | sagittal, and coronal T2.3. Sagittal STIR.FINDINGS: Five non rib-bearing, lumbar type | | vertebrae are suggested on thecoronal sequence. There is mild rightward lumbar | | curvature. Several small,benign hemangiomata are again visible within the spine. | | Marrow signal isotherwise normal. Small Schmorl's nodes persist within the lumbar and | | lowerthoracic vertebral endplates. Lumbar vertebral height and alignment areotherwise | | maintained, without evidence of fracture, spondylolysis orspondylolisthesis. The conus | | medullaris is unremarkable, terminating at L1. The imaged intra-abdominal and paraspinal | | structures are unremarkable.The T11-12, T12-L1, L1-2 and L2-3 levels are unremarkable | | on provided sagittalimages through the region.Mild posterior disc bulge, congenitally | | short pedicles and dorsal ligamentousand facet hypertrophy are present at L3-4, | | combining to mildly narrow thecentral canal to a similar degree and mildly narrow the | | neural foramina to aslightly greater degree. Bilateral facet joint effusions | | persist.Disc desiccation and mild disc space narrowing persist at L4-5. A central | | discprotrusion/extrusion has increased and results in severe narrowing of thecentral | | canal, with complete effacement of the thecal sac. There isencroachment on the | | subarticular recesses and descending L5 nerve roots as well. Underlying mild disc bulge | | again combines with ligamentous and facethypertrophy to mild to moderately narrow the | | neural foramina. Left greater thanright facet joint effusions persist.Disc desiccation, | | mild disc space narrowing and a mild posterior disc bulgepersist at L5-S1, combining | | with dorsal ligamentous and facet hypertrophy tomild to moderately narrow the neural | | foramina to a similar degree. There issome encroachment on the descending S1 nerve | | roots within the subarticularrecesses.IMPRESSION -1. DEGENERATIVE DISC DISEASE AND | | PROGRESSIVE CENTRAL DISC PROTRUSION/EXTRUSIONAT L4-5 COMPARED WITH MRI OF MARCH 2010, WITH | | SEVERE CENTRAL CANAL STENOSIS ANDSUBARTICULAR RECESS ENCROACHMENT.2. SIMILAR | | DEGENERATIVE DISC DISEASE AND MILD TO MODERATE FORAMINAL STENOSIS ATL5-S1 WITH | | ENCROACHMENT ON THE DESCENDING S1 NERVE ROOTS.3. MULTILEVEL FACET ARTHROPATHY.Dictated | | and Signed by: Jack Kay MD Electronically signed: 09/14/2016 5:05 PM | |central canal, with complete effacement of the thecal sac. There is | |encroachment on the subarticular recesses and descending L5 nerve roots as well. | | Underlying mild disc bulge again combines with ligamentous and facet | |hypertrophy to mild to moderately narrow the neural foramina. Left greater than | |right facet joint effusions persist. | | | |Disc desiccation, mild disc space narrowing and a mild posterior disc bulge | |persist at L5-S1, combining with dorsal ligamentous and facet hypertrophy to | |mild to moderately narrow the neural foramina to a similar degree. There is | |some encroachment on the descending S1 nerve roots within the subarticular | |recesses. | | | |IMPRESSION - | |1. DEGENERATIVE DISC DISEASE AND PROGRESSIVE CENTRAL DISC PROTRUSION/EXTRUSION | |AT L4-5 COMPARED WITH MRI OF MARCH 2010, WITH SEVERE CENTRAL CANAL STENOSIS AND | |SUBARTICULAR RECESS ENCROACHMENT. | | | |2. SIMILAR DEGENERATIVE DISC DISEASE AND MILD TO MODERATE FORAMINAL STENOSIS AT | |L5-S1 WITH ENCROACHMENT ON THE DESCENDING S1 NERVE ROOTS. | | | |3. MULTILEVEL FACET ARTHROPATHY. | | | |Dictated and Signed by: Jack Kay MD | | Electronically signed: 09/14/2016 5:05 PM | + + + + + + + | Performing | Address | City/State/Zipcode | Phone Number | | Organization | | | | + + + + + | [facility] | [address] | [place] | [phone] | | [facility] | | [address] | | | - IMAGING | | | | + + + + + IMAGING REPORT - EXTERNAL SCAN (03/30/2016 12:00 AM PDT) + + + | Narrative | Performed At | + + + | Ordered by an | | | unspecified provider. | | + + + IMAGING REPORT - EXTERNAL SCAN (03/30/2010 12:00 AM PDT) + + + | Narrative | Performed At | + + + | Ordered by an | | | unspecified provider. | | + + + documented in this encounter Visit Diagnoses + + | Diagnosis | + + | Chronic midline low back pain with left-sided sciatica - Primary | + + | Lumbar radiculopathy Thoracic or lumbosacral neuritis or radiculitis, unspecified | + + | Annular tear of lumbar disc Degeneration of lumbar or lumbosacral intervertebral disc | + + | Tobacco dependence Tobacco use disorder | + + | Heroin use disorder, mild, in early remission, abuse (HCC) | + + documented in this encounter
--- OUTSIDE RECORDS SUMMARY | ~2020-04-06 | XMS | Encounter Summary ---
Demographics + + + | Address | [address] | | | [place] [address] | + + + | Home Phone | | + + + | Preferred Language | Unknown | + + + | Marital Status | | + + + | Sikh Affiliation | Unknown | + + + | Race | Unknown | + + + | Ethnic Group | Unknown | + + + Author + + + | Author | [facility] | | | and Tomasana | + + + | Organization | [facility] | | | and Tomasana [...] [place] | | | | | [address] | | + + + + + Care Team Providers + +------+ + | Care Chemical Etching Processor Name | Role | Phone | + +------+ + | Jolene Bear | PCP | | + +------+ + Reason for Visit + + + | Reason | Comments | + + + | Results, Imaging | | + + + Encounter Details +--------+ + + + + | Date | Type | Department | Care Team | Description | +--------+ + + + + | 09/20/ | Telephone | [facility] [place] | Wojciech Bowie, | Results, Imaging | | 2015 | | PHYSIATRY [address] | MD [address] | | | | | [address] | [place], [place] | | | | | [place] | [address] | | | | | [address] | | | | | | [phone] | | | +--------+ + + + [...]
--- OUTSIDE RECORDS SUMMARY | ~2020-04-06 | XMS | Encounter Summary ---
Demographics + + + | Address | [address] | | | [place] [address] | + + + | Home Phone | | + + + | Preferred Language | Unknown | + + + | Marital Status | | + + + | Synagogue Affiliation | Unknown | + + + | Race | Unknown | + + + | Ethnic Group | Unknown | + + + Author + + + | Author | [facility] | | | and Tomasana | + + + | Organization | [facility] | | | and Tomasana [...] [place] | | | | | [address] | | + + + + + Care Team Providers + +------+ + | Care Iphone Developer Name | Role | Phone | + +------+ + | Jolene Bear | PCP | | + +------+ + Encounter Details +--------+ + + + + | Date | Type | Department | Care Team | Description | +--------+ + + + + | 12/16/ | Episode | [facility] [place] | Meredith Conte, | | | 2017 | Changes | NEUROSURGERY [address] | [place] | | | | | [address] | | | | | | [place] | | | | | | [address] | | | | | | [phone] | | | +--------+ + + + + Social History + + + +--------+ + | Tobacco Use | Types | Packs/Day | Years | Date | | | | | Used | | + + + +--------+ + | Current Every Day | Cigarettes | 1 | 3 | Started: 11/20/2012 | | Smoker | | | | | + + + +--------+ + + +---+---+---+ | Smokeless Tobacco: | | | | | Former User | | | | + +---+---+---+ + + | Comments: Chewed for about 1 week in 2005 | + + + + +---------+ + | Alcohol Use | Drinks/Week | oz/Week | Comments | + + +---------+ + | Yes | 0 Standard drinks | 0.0 | Very rare | | | or equivalent | [...]
--- OUTSIDE RECORDS SUMMARY | ~2020-04-06 | XMS | Encounter Summary ---
Demographics + + + | Address | [address] | | | [place] [address] | + + + | Home Phone | | + + + | Preferred Language | Unknown | + + + | Marital Status | | + + + | Presybeterian Affiliation | Unknown | + + + | Race | Unknown | + + + | Ethnic Group | Unknown | + + + Author + + + | Author | [facility] | | | and Tomasana | + + + | Organization | [facility] | | | and Tomasana [...] [place] | | | | | [address] | | + + + + + Care Team Providers + +------+ + | Care Machine Spreader Name | Role | Phone | + [...] Services | Therapy | Chronic low | Javno López DO | [facility] | | | Required | | back pain | [address] | HOSPITAL | | | | | | [place] [place] | [address] | | | | | | [place], [place] | AVE | | | | | | [address] | [place] | | | | | | Phone: | [phone] | | | | | | [phone] | Phone: | | | | | | Fax: | [phone] | | | | | | [phone] | Fax: | | | | | | | [phone] | +--------+ + + + + + [...] Other | | 2013 | | MEDICINE [facility] | DO [address] | | | | | [address] | [place] | | | | | [place] | [address] | | | | | [address] | | | | | | [phone] | | | +--------+ + + + [...]
--- OUTSIDE RECORDS SUMMARY | ~2020-04-06 | XMS | Encounter Summary ---
Demographics + + + | Address | [address] | | | [place] [address] | + + + | Home Phone | | + + + | Preferred Language | Unknown | + + + | Marital Status | | + + + | Restorationism Affiliation | Unknown | + + + | Race | Unknown | + + + | Ethnic Group | Unknown | + + + Author + + + | Author | [facility] | | | and Tomasana | + + + | Organization | [facility] | | | and [place]omasana | [...] [place] | | | | | [address] | | + + + + + Care Team Providers + +------+ + | Care Fisher Lampara Net Name | Role | Phone | + [...] [place] | | | | | | [address] | | | | | | [phone] | | | +--------+ + + + [...]
--- OUTSIDE RECORDS SUMMARY | ~2020-04-06 | XMS | Clinical Summary ---
Demographics + + + | Address | [address] | | | [place] [address] | + + + | Home Phone | | + + + | Preferred Language | Unknown | + + + | Marital Status | | + + + | Druze Affiliation | Unknown | + + + | Race | Unknown | + + + | Ethnic Group | Unknown | + + + Author + + + | Author | [facility] | | | and Tomasana | + + + | Organization | [facility] | | | and Tomasana | [...] [place] | | | | | [address] | | + + + + + Care Team Providers + +------+ + | Care Propagation Manager Name | Role | Phone | + +------+ + | Pcp, Prov Inactive | PCP | | + +------+ + Allergies + + + + + + | Active Allergy | Reactions | Severity | Noted | Comments | | | | | Date | | + + + + + + | Hydrocodone | Hives, Shortness Of | High | 08/15/20 | | | | Breath | | 16 | | + + + + + + | Latex | Rash | Low | 04/26/20 | | | | | | 13 | | + + + + + + | Metoprolol | Itching, Rash | Low | 08/15/20 | | | | | | 16 | | + + + + + + | Naloxone | Other (See Comments) | Medium | 02/02/20 | Severe headache | | | | | 17 | | + + + + + + | Oxycodone | Itching | Low | 08/15/20 | | | | | | 16 | | + + + + + + Medications + + + +---------+------+------+-------+ | Medication | Sig | Dispensed | Refills | Star | End | Statu | | | | | | t | Date | s | | | | | | Date | | | + + + +---------+------+------+-------+ | ibuprofen | Take 800 mg by mouth | | 0 | | | Activ | | (ADVIL,MOTRIN) 800 | every 6 hours as | | | | | e | | MG tablet | needed for Pain. | | | | | | + + + +---------+------+------+-------+ | tiZANidine | Take 2 mg by mouth | | 0 | | | Activ | | (ZANAFLEX) 2 MG | every 8 hours as | | | | | e | | tablet | needed. | | | | | | + + + +---------+------+------+-------+ | buprenorphine | Place 8 mg under the | | 0 | | | Activ | | (SUBUTEX) 8 mg SUBL | tongue 3 times | | | | | e | | | daily. | | | | | | + + + +---------+------+------+-------+ | gabapentin | Take 300 mg by mouth | | 0 | | | Activ | | (NEURONTIN) 300 mg | 3 times daily as | | | | | e | | capsule | needed. | | | | | | + + + +---------+------+------+-------+ Active Problems + + + | Problem | Noted Date | + + + | Unspecified otitis media | 05/06/2015 | + + + + + | Overview: ICD-10 Record update | + + + + + | Preventative health care | 06/27/2013 | + + + + + | Overview: LAST PSA: | | RESULT: | | | | LAST COLONOSCOPY: | | RESULT | + + + + + | Hypogonadism male | 04/06/2013 | + + + | Hyperlipidemia | 04/06/2013 | + + + | Obesity | 04/06/2013 | + + + | Chronic low back pain | 04/06/2013 | + + + | Obstructive sleep apnea | 04/06/2013 | + + + | Hypertension | 04/06/2013 | + + + | GERD (gastroesophageal reflux disease) | 04/06/2013 | + + + | Anxiety | 04/06/2013 | + + + Family History + + +------+ + | Medical History | Relation | Name | Comments | + + +------+ + | Cancer | Maternal | | Liver Cancer | | | Aunt | | | + + +------+ + | Heart attack | Maternal | | | | | Grandfath | | | | | er | | | + + +------+ + | Cancer | Maternal | | LIver Cancer | | | Grandmoth | | | | | er | | | + + +------+ + | Diabetes | Maternal | | | | | Uncle | | | + + +------+ + | Other (see comment) | Maternal | | Brain Tumor | | | Uncle | | | + + +------+ + | High blood pressure | Mother | | | + + +------+ + + +------+ + + | Relation | Name | Status | Comments | + +------+ + + | Father | | Alive | | + +------+ + + | Maternal Aunt | | | cancer | | | | (Age | | | | | 65) | | + +------+ + + | Maternal Grandfather | | | | + +------+ + + | Maternal Grandmother | | | cancer | | | | (Age | | | | | 84/85) | | + +------+ + + | Maternal Uncle | | | brain tumor | | | | (Age | | | | | 62) | | + +------+ + + | Mother | | Alive | | + +------+ + + | Paternal Grandfather | | | | + +------+ + + | Paternal Grandmother | | | | + +------+ + + | Paternal Uncle | | | | + +------+ + + | Sister | | Alive | | + +------+ + + | Son | | Alive | | + +------+ + + | Son | | Alive | | + +------+ + + Social History + + + [...] recent travel history available. | + + Last Filed Vital Signs + + + + + | Vital Sign | Reading | Time Taken | Comments | + + + + + | Blood Pressure | 126/91 | 02/01/2017 10:33 AM | | | | | PDT | | + + + + + | Pulse | 112 | 02/01/2017 10:33 AM | | | | | PDT | | + + + + + | Temperature | 36.2 C (97.1 F) | 04/26/2013 8:45 AM | | | | | PDT | | + + + + + | Respiratory Rate | 16 | 12/15/2016 2:30 PM | | | | | PST | | + + + + + | Oxygen Saturation | 97% | 05/07/2015 3:07 PM | | | | | PDT | | + + + + + | Inhaled Oxygen | - | - | | | Concentration | | | | + + + + + | Weight | 152.6 kg (336 lb 6.4 | 02/01/2017 10:33 AM | | | | oz) | PDT | | + + + + + | Height | 190.5 cm (6' 3") | 02/01/2017 10:33 AM | | | | | PDT | | + + + + + | Body Mass Index | 42.05 | 02/01/2017 10:33 AM | | | | | PDT | | + + + + + Plan of Treatment + + + + + | Health Maintenance | Due Date | Last Done | Comments | + + + + + | Vaccine: | | | | | Dtap/Tdap/Td (1 - | 2 | | | | Tdap) | | | | + + + + + | Vaccine: Influenza | | | | | (Season Ended) | 0 | | | + + + + + Results Not on filefrom Last 3 Months Insurance + +--------+ +--------+ +---------+--------+ | Payer | Benefi | Subscriber | Effect | Phone | Address | Type | | | t Plan | ID | vitor | | | | | | / | | Dates | | | | | | Group | | | | | | + +--------+ +--------+ +---------+--------+ | [employer] | [employer] | [id number] | | [phone] | | Medica | | MEDICAID HMO | HEALTH | | [id number]-Pr | 1 | | id | | | MDCD | | esent | | | | | | [place] | | | | | | + +--------+ +--------+ +---------+--------+ + +--------+ +--------+ + + | Guarantor Name | Accoun | Relation to | Date | Phone | Billing Address | | | t Type | Patient | of | | | | | | | | | | + +--------+ +--------+ + + | Dario Majano | Person | Self [birth year] | [address] | | | al/Fam | | 1980 | [phone] | [place] [address] | | | lenora | | | 1 (Home) | | + +--------+ +--------+ + + Advance Directives + + + + + | Type | Date Recorded | Patient | Explanation | | | | Carpet Inspector | | + + + + + | Power of | | | | | Court Supervisor | | | | + + + + + | Advance | 02/01/2017 1:45 | | | | Directive | PM | | | + + + + +
--- OUTSIDE RECORDS SUMMARY | ~2020-04-06 | XMS | Encounter Summary ---
Demographics + + + | Address | [address] | | | [place] [address] | + + + | Home Phone | | + + + | Preferred Language | Unknown | + + + | Marital Status | | + + + | Anglican Affiliation | Unknown | + + + | Race | Unknown | + + + | Ethnic Group | Unknown | + + + Author + + + | Author | [facility] | | | and Tomasana | + + + | Organization | [facility] | | | and [...] [place] | | | | | [address] | | + + + + + Care Team Providers + +------+ + | Care Security Developer Name | Role | Phone | + +------+ + | Jolene Bear | PCP | | + +------+ + Encounter Details +--------+ + + + + | Date | Type | Department | Care Team | Description | +--------+ + + + + | 02/01/ | Preadmit | [facility] | Dario Koehler, | Pre-operative | | 2017 | Visit | [facility] | DO [address] | clearance (Primary | | | | CLINIC [address] | [address] [place], [place] | Dx); Hyperlipidemia, | | | | [place], [place] | [address] | unspecified | | | | [address] | | hyperlipidemia type; | | | | | | Chronic low back | | | | | | pain, unspecified | | | | | | back pain | | | | | | laterality, with | | | | | | sciatica presence | | | | | | unspecified | +--------+ + + + + Social [...] | + +--------+ + + + | CULTURE, MRSA | Routin | 02/01/2017 | Pre-operative | Results for this | | | e | 2:08 PM | clearance | procedure are in the | | | | PDT | | results section. | + +--------+ + + + | CBC WITH | Routin | 02/01/2017 | Hyperlipidemia, | Results for this | | DIFFERENTIAL | e | 2:08 PM | unspecified | procedure are in the | | | | PDT | hyperlipidemia type | results section. | | | | | Chronic low back | | | | | | pain, unspecified | | | | | | back pain | | | | | | laterality, with | | | | | | sciatica presence | | | | | | unspecified | | + +--------+ + + + | ECG 12 LEAD | Routin | 02/01/2017 | Hyperlipidemia, | Results for this | | | e | 2:00 PM | unspecified | procedure are in the | | | | PDT | hyperlipidemia type | results section. | | | | | Chronic low back | | | | | | pain, unspecified | | | | | | back pain | | | | | | laterality, with | | | | | | sciatica presence | | | | | | unspecified | | + +--------+ + + + documented in this encounter Results CBC with Differential (02/01/2017 2:08 PM PDT) + + + + + + | Component | Value | Ref Range | Performed | Pathologist | | | | | At | Signature | + + + + + + | WBC | 8.1 | 4.0 - 11.0 K/uL | [facility] | | | | | | [facility] | | | | [facility] | | [facility] - | | | | | | [facility]ATORY | | + + + + + + | RBC | 4.54 | 4.30 - 5.70 | [facility] | | | | | M/uL | [facility] | | | | | | [facility] | | | | | | [facility] - | | | | | | LABORATORY | | + + + + + + | Hemoglobin | 13.1 (L) | 13.5 - 18.0 | [facility] | | | | | g/dL | [facility] | | | | | | [facility] | | | | | | [facility] - | | | | | | LABORATORY | | + + + + + + | Hematocrit | 39.7 (L) | 40.0 - 51.0 % | [facility] | | | | | | [facility] | | | | | | [facility] | | | | | | [facility] - | | | | | | LABORATORY | | + + + + + + | MCV | 87.3 | 83.0 - 101.0 fL | [facility] | | | | | | [facility] | | | | | | [facility] | | | | | | [facility] - | | | | | | LABORATORY | | + + + + + + | MCH | 28.8 | 28.0 - 35.0 pg | [facility] | | | | | | [facility] | | | | | | [facility] | | | | | | [facility] - | | | | | | LABORATORY | | + + + + + + | MCHC | 33.0 | 32.0 - 36.0 | [facility] | | | | | g/dL | [facility] | | | | | | [facility] | | | | | | [facility] - | | | | | | LABORATORY | | + + + + + + | RDW-CV | 15.0 (H) | <15.0 % | [facility] | | | | | | [facility] | | | | | | [facility] | | | | | | [facility] - | | | | | | LABORATORY | | + + + + + + | Platelet | 247 | 140 - 440 K/uL | [facility] | | | Count | | | [facility] | | | | | | [facility] | | | | | | [facility] - | | | | | | LABORATORY | | + + + + + + | MPV | 6.7 | fL | [facility] | | | | | | [facility] | | | [facility] | | [facility] | | | [facility] | | [facility] - | | | | | | LABORATORY | | + + + + + + | % | 42.5 (L) | 45.0 - 82.0 % | [facility] | | | Neutrophils | | | [facility] | | | | | | [facility] | | | | | | [facility] - | | | | | | LABORATORY | | + + + + + + | % | 41.8 | 20.0 - 45.0 % | [facility] | | | Lymphocytes | | | [facility] | | | | | | [facility] | | | | | | [facility] - | | | | | | LABORATORY | | + + + + + + | % Monocytes | 11.9 | 4.0 - 12.0 % | [facility] | | | | | | [facility] | | | | | | [facility] | | | | | | [facility] - | | | | | | LABORATORY | | + + + + + + | % | 3.2 | 0.0 - 5.0 % | [facility] | | | Eosinophils | | | [facility] | | | | | | [facility] | | | | | | [facility] - | | | | | | LABORATORY | | + + + + + + | % Basophils | 0.6 | 0.0 - 1.0 % | [facility] | | | | | | [facility] | | | | | | [facility] | | | | | | [facility] - | | | | | | LABORATORY | | + + + + + + | Absolute | 3.40 | 1.80 - 8.50 | [facility] | | | Neutrophils | | K/uL | [facility] | | | | | | [facility] | | | | | | [facility] - | | | | | | LABORATORY | | + + + + + + | Absolute | 3.40 (H) | 0.60 - 3.20 | [facility] | | | Lymphocytes | | K/uL | [facility] | | | | | | [facility] | | | | | | [facility] - | | | | | | LABORATORY | | + + + + + + | Absolute | 1.00 | 0.00 - 1.00 | [facility] | | | Monocytes | | K/uL | [facility] | | | | | [facility] | | | | | | [facility] - | | | | | | LABORATORY | | + + + + + + | Absolute | 0.30 | 0.00 - 0.40 | [facility] | | | Eosinophils | | K/uL | [facility] | | | | | | [facility] | | | | | | [facility] - | | | | | | LABORATORY | | + + + + + + | Absolute | 0.10 | 0.00 - 0.10 | [facility] | | | Basophils | | K/uL | [facility] | | | | | | [facility] | | | | | | [facility] - | | | | | | LABORATORY | | + + + + + + + + | Specimen | + + | Blood | + + + + + + + | Performing | Address | City/State/Zipcode | Phone Number | | Organization | | | | + + + + + | [facility] | [address] | [place] | [phone] | | [facility] | | [address] | | | - LABORATORY | | | | + + + + + Culture, MRSA (02/01/2017 2:08 PM PDT) + + + + + + | Component | Value | Ref Range | Performed | Pathologist | | | | | At | Signature | + + + + + + | Culture | Negative for MRSA by | | EFRAINE | | | | chromogenic agar method | | [facility] | | | | | | [facility] | | | | | | [facility] - | | | | | | LABORATORY | | + + + + + + + + | Specimen | + + | Respiratory - Both | | anterior nares (body | | structure) | + + + + + + + | Performing | Address | City/State/Zipcode | Phone Number | | Organization | | | | + + + + + | [facility] | [address] | [place] | [phone] | | [facility] | | [address] | | | - LABORATORY | | | | + + + + + ECG 12 lead (02/01/2017 2:00 PM PDT) + + + + + + | Component | Value | Ref Range | Performed | Pathologist | | | | | At | Signature | + + + + + + | VENTRICULAR | 107 | BPM | [facility] | | | RATE EKG | | | | | + + + + + + | ATRIAL RATE | 107 | BPM | [facility] | | + + + + + + | P-R | 186 | ms | [facility] | | | INTERVAL | | | | | + + + + + + | QRS | 130 | ms | [facility] | | | DURATION | | | | | + + + + + + | Q-T | 348 | ms | [facility] | | | INTERVAL | | | | | + + + + + + | Q-T | 464 | ms | [facility] | | | INTERVAL | | | | | | (CORRECTED) | | | | | + + + + + + | P WAVE AXIS | 48 | degrees | [facility] | | + + + + + + | QRS AXIS | 55 | degrees | [facility] | | + + + + + + | T AXIS | 12 | degrees | [facility] | | + + + + + + | INTERPRETAT | Sinus | | [facility] | | | ION TEXT | tachycardiaNonspecific | | | | | | intraventricular | | | | | | blockconsider Inferior | | | | | | infarct , age | | | | | | undeterminedAbnormal | | | | | | ECGNo previous ECGs | | | | | | availableConfirmed by | | | | | | SIMON GERMAN MD ([id number]) | | | | | | on 02/02/2017 6:50:59 AM | | | | + + + + + + + + | Specimen | + + | | + + + + + | Narrative | Performed At | + + + | | | + + + + +---------+ + + | Performing | Address | City/State/Zipcode | Phone Number | | Organization | | | | + +---------+ + + | [facility] | | | | + +---------+ + + documented in this encounter Visit Diagnoses + + | Diagnosis | + + | Pre-operative clearance - Primary Preoperative examination, unspecified | + + | Hyperlipidemia, unspecified hyperlipidemia type | + + | Chronic low back pain, unspecified back pain laterality, with sciatica presence | | unspecified | + + documented in this encounter"
--- OUTSIDE RECORDS SUMMARY | ~2020-04-06 | XMS | Encounter Summary ---
Demographics + + + | Address | [address] | | | [place] [address] | + + + | Home Phone | | + + + | Preferred Language | Unknown | + + + | Marital Status | | + + + | Jain Affiliation | Unknown | + + + | Race | Unknown | + + + | Ethnic Group | Unknown | + + + Author + + + | Author | [facility] | | | and Tomasana | + + + | Organization | [facility] | | | and Tomasana | [...] [place] | | | | | [address] | | + + + + + Care Team Providers + +------+ + | Care Sports Doctor Name | Role | Phone | + +------+ + PCP | Unavailable | + +------+ + Encounter Details +--------+ + + + + | Date | Type | Department | Care Team | Description | +--------+ + + + + | 04/25/ | Emergency | [facility] | Osmar Georges DO | Elevated blood | | 2011 | | [facility] | [address] [place] | pressure reading | | | | [facility] | [address] [place], [place] | without diagnosis of | | | | [address] | [address] | hypertension; | | | | [place], [place] | [phone] | Vasovagal syncopes; | | | | [address] | | Hematemesis; Rectal | | | | [phone] | | bleeding; Peptic | | | | | | ulcer disease; | | | | | | Dehydration, | | | | | | moderate; IBS | | | | | | (irritable bowel | | | | | | syndrome) | +--------+ + + + + Social History + +-------+ +--------+------+ | Tobacco Use | Types | Packs/Day | Years | Date | | | | | Used | | + +-------+ +--------+------+ | Never Assessed | | | | | + +-------+ +--------+------+ + + + | Sex Assigned at [...] | + +--------+ + + + | CT ABDOMEN PELVIS W | Routin | 04/25/2012 | | Results for this | | CONTRAST | e | 8:42 PM | | procedure are in the | | | | PDT | | results section. | + +--------+ + + + | CT HEAD WO CONTRAST | Routin | 04/25/2012 | | Results for this | | | e | 8:40 PM | | procedure are in the | | | | PDT | | results section. | + +--------+ + + + | XR CHEST 2 VIEWS | Routin | 04/25/2012 | | Results for this | | | e | 6:29 PM | | procedure are in the | | | | PDT | | results section. | + +--------+ + + + documented in this encounter Results CT Abdomen Pelvis w Contrast (04/25/2012 8:42 PM PDT) + + | Specimen | + + | | + + + + + | Narrative | Performed At | + + + | [facility] CT ABDOMEN PELVIS W CONTRAST 04/25/2012 7:05 PM | | | History: 32 years. Male. Acute abdominal pain. A Technique: | | | No oral or IV contrast was utilized. 5-mm thick slices were made | | | 5-mm intervals throughout the abdomen and pelvis in the axial plane. | | | URINARY TRACT: Both kidneys show normal size and contour, without | | | mass, hydronephrosis or calcification. The ureters show normal course | | | and caliber. The bladder is smooth, without wall thickening or mass. | | | Prostate gland is small. The seminal vesicles are unremarkable. | | | ABDOMEN: The hepatic volume, density and texture are normal. No | | | focal hepatic lesions visualized. The gallbladder is been removed. The | | | thickness and density of the pancreas is normal. No celiac, | | | peripancreatic or retrocrural adenopathy visualized. The splenic | | | volume and texture are normal. The gastroesophageal junction is | | | normal. The stomach shows normal wall thickness and position. The | | | duodenum is unremarkable. The lower lung mendez and pleural spaces are | | | partially visualized and appear clear. A nasogastric catheter is | | | noted in the distal thoracic esophagus, not yet in the stomach. The | | | adrenal glands are normal in thickness, without visible nodule. The | | | abdominal aorta shows normal caliber, without calcification. No | | | periaortic lymphadenopathy visualized. PELVIS: The caliber and | | | wall thickness of the entire colon are normal, without diverticula or | | | mass. Small intraluminal polyps cannot be excluded by this exam. The | | | appendix is visualized and appears normal. The loops of small bowel | | | show normal caliber throughout the abdomen and pelvis, without edema | | | or wall thickening. The mesenteric adipose tissue is dark, without | | | infiltrate or edema. No free fluid, free air or peritoneal nodules | | | visualized. The iliac and inguinal lymph node chains are normal. The | | | bone windows fail to show any neoplastic bone changes in the range of | | | scan. Conclusions: 1. No acute findings of the abdomen or | | | pelvis visualized. 2. In particular, the urinary tract appears | | | normal. 3. A nasogastric catheter is noted with its tip in the | | | distal thoracic esophagus, not yet in the stomach. Electronically | | | signed by Brennon Thapa MD on 04/25/2012 9:23 PM | | + + + + + | Procedure Note | + + | Mina, Rad Conversion - 07/13/2019 3:18 AM PDT [facility] ABDOMEN PELVIS W | | CONTRAST04/25/2012 7:05 PM History: 32 years. Male. Acute abdominal pain. A Technique: | | No oral or IV contrast was utilized. 5-mm thick slices were made 5-mm intervals | | throughout the abdomen and pelvis in the axial plane. URINARY TRACT: Both kidneys show | | normal size and contour, without mass, hydronephrosis or calcification. The ureters show | | normal course and caliber. The bladder is smooth, without wall thickening or mass. | | Prostate gland is small. The seminal vesicles are unremarkable. ABDOMEN: The hepatic | | volume, density and texture are normal. No focal hepatic lesions visualized. The | | gallbladder is been removed. The thickness and density of the pancreas is normal. No | | celiac, peripancreatic or retrocrural adenopathy visualized. The splenic volume and | | texture are normal. The gastroesophageal junction is normal. The stomach shows normal | | wall thickness and position. The duodenum is unremarkable. The lower lung mendez and | | pleural spaces are partially visualized and appear clear. A nasogastric catheter is | | noted in the distal thoracic esophagus, not yet in the stomach. The adrenal glands are | | normal in thickness, without visible nodule. The abdominal aorta shows normal caliber, | | without calcification. No periaortic lymphadenopathy visualized. PELVIS: The caliber | | and wall thickness of the entire colon are normal, without diverticula or mass. Small | | intraluminal polyps cannot be excluded by this exam. The appendix is visualized and | | appears normal. The loops of small bowel show normal caliber throughout the abdomen and | | pelvis, without edema or wall thickening. The mesenteric adipose tissue is dark, without | | infiltrate or edema. No free fluid, free air or peritoneal nodules visualized. The | | iliac and inguinal lymph node chains are normal. The bone windows fail to show any | | neoplastic bone changes in the range of scan. Conclusions:1. No acute findings of the | | abdomen or pelvis visualized.2. In particular, the urinary tract appears normal.3. A | | nasogastric catheter is noted with its tip in the distal thoracic esophagus, not yet in | | the stomach. | | | | | + + CT Head wo Contrast (04/25/2012 8:40 PM PDT) + + | Specimen | + + | | + + + + + | Narrative | Performed At | + + + | [facility] CT HEAD WO CONTRAST 04/25/2012 8:35 PM History: 32 | | | years. Male. Acute syncope. Technique: 5-mm thick slices at 5 | | | mm intervals were performed throughout the brain in the axial plane. | | | No intravenous iodine contrast was given. Findings: Cerebral | | | robles and white matter show normal attenuation and demarcation. No | | | focal attenuation defects or lacunar infarctions visualized. No | | | ischemic gliosis or cortical encephalomalacia visualized. No cerebral | | | edema, mass, intracranial hemorrhage, or extra-axial fluid | | | collection can be seen. The volume and contour of the ventricular | | | system is normal. The calvarium is intact. The paranasal sinuses and | | | mastoid air cells are clear. The bony internal auditory canals are | | | normal in caliber. The cerebellopontine angles are clear. Mild | | | rightward deviation of the nasal septum is noted. The paranasal | | | sinuses and mastoid air cells are clear. Conclusions: 1. Normal | | | head CT. Electronically signed by Brennon Thapa MD on | | | 04/25/2012 9:16 PM | | + + + + + | Procedure Note | + + | Mina, Rad Conversion - 07/13/2019 3:18 AM PDT [facility] HEAD WO CONTRAST04/25/2012 | | 8:35 PM History: 32 years. Male. Acute syncope. Technique: 5-mm thick slices at 5 mm | | intervals were performed throughout the brain in the axial plane. No intravenous iodine | | contrast was given. Findings: Cerebral robles and white matter show normal attenuation | | and demarcation. No focal attenuation defects or lacunar infarctions visualized. No | | ischemic gliosis or cortical encephalomalacia visualized. No cerebral edema, mass, | | intracranial hemorrhage, or extra-axial fluid collection can be seen. The volume and | | contour of the ventricular system is normal. The calvarium is intact. The paranasal | | sinuses and mastoid air cells are clear. The bony internal auditory canals are normal in | | caliber. The cerebellopontine angles are clear. Mild rightward deviation of the nasal | | septum is noted. The paranasal sinuses and mastoid air cells are clear. Conclusions:1. | | Normal head CT. | | | |Conclusions: | |1. Normal head CT. | | | | | + + XR Chest 2 Vws (04/25/2012 6:29 PM PDT) + + | Specimen | + + | | + + + + + | Narrative | Performed At | + + + | [facility] XR CHEST 2 VIEW FRONTAL AND LATERAL 04/25/2012 6:25 PM | | | History: 32 years. Male. Acute syncope. Technique: PA | | | and Lateral views of the chest. Findings: The lungs and pleural | | | spaces are clear. The cardiac silhouette and pulmonary vasculature | | | are normal. Osseous structures are unremarkable. The mediastinal | | | contours and pulmonary ida are normal. The thoracic aorta is normal. | | | No prior exam. Conclusions: 1. Normal chest. | | | | | + + + + + | Procedure Note | + + | Mina, Rad Conversion - 07/13/2019 3:18 AM PDT [facility]JAN[facility] CHEST 2 VIEW FRONTAL AND | | LATERAL04/25/2012 6:25 PM History: 32 years. Male. Acute syncope. Technique: PA and | | Lateral views of the chest. Findings: The lungs and pleural spaces are clear. The | | cardiac silhouette and pulmonary vasculature are normal. Osseous structures are | | unremarkable. The mediastinal contours and pulmonary ida are normal. The thoracic | | aorta is normal. No prior exam. Conclusions:1. Normal chest. | | | |Findings: The lungs and pleural spaces are clear. The cardiac silhouette and pulmonary va sculature are normal. Osseous structures are unremarkable. The mediastinal contours and pu lmonary ida are normal. The | |thoracic aorta is normal. No prior exam. | | | | | |Conclusions: | |1. Normal chest. | | | | | + + documented in this encounter Visit Diagnoses + + | Diagnosis | + + | Elevated blood pressure reading without diagnosis of hypertension | + + | Vasovagal syncopes Syncope and collapse | + + | Hematemesis | + + | Rectal bleeding Hemorrhage of rectum and anus | + + | Peptic ulcer disease Peptic ulcer, unspecified site, unspecified as acute or chronic, | | without mention of hemorrhage, perforation, or obstruction | + + | Dehydration, moderate Dehydration | + + | IBS (irritable bowel syndrome) Irritable bowel syndrome | + + documented in this encounter"
--- OUTSIDE RECORDS SUMMARY | ~2020-04-06 | XMS | Encounter Summary ---
Demographics + + + | Address | [address] | | | [place] [address] | + + + | Home Phone | | + + + | Preferred Language | Unknown | + + + | Marital Status | | + + + | Zoroastrianism Affiliation | Unknown | + + + | Race | Unknown | + + + | Ethnic Group | Unknown | + + + Author + + + | Author | [facility] | | | and Tomasana | + + + | Organization | [facility] | | | and Tomasana [...] [place] | | | | | [address] | | + + + + + Care Team Providers + +------+ + | Care Diamond Cleaner Name | Role | Phone | + +------+ + | Javon Delgado DO | PCP | | + +------+ + Reason for Visit +---------+ + | Reason | Comments | +---------+ + | Anxiety | | +---------+ + Encounter Details +--------+ + + + + | Date | Type | Department | Care Team | Description | +--------+ + + + + | 04/29/ | Telephone | [facility] | Javon Delgado, | Anxiety | | 2012 | | [facility] [place] | DO [address] | | | | | [address] | [place] | | | | | [place] | [address] | | | | | [address] | | | | | | [phone] | | | +--------+ + + + [...] filedocumented as of this encounter Visit Diagnoses + + | Diagnosis | + + | Anxiety - Primary Anxiety state, unspecified | + + documented in this encounter"
--- OUTSIDE RECORDS SUMMARY | ~2020-04-06 | XMS | Encounter Summary ---
Demographics + + + | Address | [address] | | | [place] [address] | + + + | Home Phone | | + + + | Preferred Language | Unknown | + + + | Marital Status | | + + + | Uatsdin Affiliation | Unknown | + + + | Race | Unknown | + + + | Ethnic Group | Unknown | + + + Author + + + | Author | [facility] | | | and Tomasana | + + + | Organization | [facility] | | | and Tomasana [...] [place] | | | | | [address] | | + + + + + Care Team Providers + +------+ + | Care Order Selector Name | Role | Phone | + [...] PHYSIATRY [address] | MD [address] | | | | | [address] | [place], [place] | | | | | [place], [place] | [address] | | | | | [address] | | | | | | [phone] | | | +--------+ + + + [...]
--- OUTSIDE RECORDS SUMMARY | ~2020-04-06 | XMS | Encounter Summary ---
Demographics + + + | Address | [address] | | | [place] [address] | + + + | Home Phone | | + + + | Preferred Language | Unknown | + + + | Marital Status | | + + + | Nondenominational Affiliation | Unknown | + + + | Race | Unknown | + + + | Ethnic Group | Unknown | + + + Author + + + | Author | [facility] | | | and Tomasana | + + + | Organization | [facility] | | | and Tomasana [...] [place] | | | | | [address] | | + + + + + Care Team Providers + +------+ + | Care Metal Spinner Name | Role | Phone | + +------+ + | Javon Delgado DO | PCP | | + +------+ + Reason for Visit +---------+ + | Reason | Comments | +---------+ + | Results | | +---------+ + Encounter Details +--------+ + + + + | Date | Type | Department | Care Team | Description | +--------+ + + + + | 04/23/ | Telephone | [facility] [place] [facility] | Javon Delgado, | Results | | 2012 | | [facility]IC[facility] [place] | DO [address] | | | | | [address] | [place] | | | | | [place] | [address] | | | | | [address] | | | | | | [phone] | | | +--------+ + + + [...]
--- OUTSIDE RECORDS SUMMARY | ~2020-04-06 | XMS | Encounter Summary ---
Demographics + + + | Address | [address] | | | [place] [address] | + + + | Home Phone | | + + + | Preferred Language | Unknown | + + + | Marital Status | | + + + | Hindu Affiliation | Unknown | + + + | Race | Unknown | + + + | Ethnic Group | Unknown | + + + Author + + + | Author | [facility] | | | and Tomasana | + + + | Organization | [facility] | | | and [...] [place] | | | | | [address] | | + + + + + Care Team Providers + +------+ + | Care Lead Php Developer Name | Role | Phone | [...] | Wojciech Lamb MD | [address] | | | | | midline low | [address] | [place], | | | | | back pain | [address] | [place] | | | | | with | [place], | [address] | | | | | left-sided | [place] [address] | Phone: | | | | | sciatica | Phone: | [phone] | | | | | Lumbar | [phone] | Fax: | | | | | radiculopath | Fax: | [phone] | | | | | y Annular | [phone] | | | | | | tear of | | | | | | | lumbar disc | | | | | | | Procedures | | | | | | | MRI Lumbar | | | | | | | Spine wo | | | | | | | Contrast | | | +--------+--------+ + + + + Reason for Visit Diagnostic/Screening (Routine) +--------+--------+ + + + + | Status | Reason | Specialty | Diagnoses / | Referred By | Referred To | | | | | Procedures | Contact | Contact | +--------+--------+ + + + + | Closed | | Radiology | Diagnoses | [place], | [facility] | | | | | Chronic | Wojciech Lamb MD | [address] | | | | | midline low | [address] | [place], | | | | | back pain | [address] | [place] | | | | | with | [place], | [address] | | | | | left-sided | [place] [address] | Phone: | | | | | sciatica | Phone: | [phone] | | | | | Lumbar | [phone] | Fax: | | | | | radiculopath | Fax: | [phone] | | | | | y Annular | [phone] | | | | | | tear of | | | | | | | lumbar disc | | | | | | | Procedures | | | | | | | MRI Lumbar | | | | | | | Spine wo | | | | | | | Contrast | | | +--------+--------+ + + + + Encounter Details +--------+ + + + + | Date | Type | Department | Care Team | Description | +--------+ + + + + | 09/14/ | Hospital | [facility] | Wojciech [place], | Chronic midline low | | 2016 | Encounter | [facility] [address] | MD [address] | back pain with | | | | [address] [place], | [place], [place] | left-sided sciatica; | | | | [place] [address] | [address] | Lumbar | | | | [phone] | | radiculopathy; | | | | | | Annular tear of | | | | | | lumbar disc | +--------+ + + + + Social [...] + + documented as of this encounter Medications at Time of Discharge + + + +---------+--------+ + | Medication | Sig | Dispensed | Refills | Start | End Date | | | | | | Date | | + + + +---------+--------+ + | buprenorphine | Place 8 mg under the | | 0 | | | | (SUBUTEX) 8 mg SUBL | tongue 3 times | | | | | | | daily. | | | | | + + + +---------+--------+ + | gabapentin | Take 300 mg by mouth | | 0 | | | | (NEURONTIN) 300 mg | 3 times daily as | | | | | | capsule | needed. | | | | | + + + +---------+--------+ + | ibuprofen | Take 800 mg by mouth | | 0 | | | | (ADVIL,MOTRIN) 800 | every 6 hours as | | | | | | MG tablet | needed for Pain. | | | | | + + + +---------+--------+ + | tiZANidine | Take 2 mg by mouth | | 0 | | | | (ZANAFLEX) 2 MG | every 8 hours as | | | | | | tablet | needed. | | | | | + + + +---------+--------+ + documented as of this encounter Plan of Treatment Not on filedocumented as of this encounter Procedures + +--------+ + + + | Procedure Name | Priori | Date/Time | Associated Diagnosis | Comments | | | ty | | | | + +--------+ + + + | MRI LUMBAR SPINE WO | Routin | 09/14/2016 | Chronic midline | Results for this | | CONTRAST | e | 1:48 PM | low back pain with | procedure are in the | | | | PDT | left-sided sciatica | results section. | | | | | Lumbar | | | | | | radiculopathy | | | | | | Annular tear of | | | | | | lumbar disc | | + +--------+ + + + documented in this encounter Results MRI Lumbar Spine wo Contrast (09/14/2016 1:48 PM PDT) + + | Specimen | + + | | + + + + + | Narrative | Performed At | + + + | UNENHANCED MRI LUMBAR SPINE 09/14/2016 1:32 PM CLINICAL HISTORY: | [facility] | | chronic midline back pain with left leg numbness and weakness | [facility] | | COMPARISON: Lumbar CT March 2016, [...] + + | [facility] | [address] | [place] | [phone] | | [facility] | | [address] | | | - IMAGING | | | | + + + + + documented in this encounter Visit Diagnoses + + | Diagnosis | + + | Chronic midline low back pain with left-sided sciatica | + + | Lumbar radiculopathy Thoracic or lumbosacral neuritis or radiculitis, unspecified | + + | Annular tear of lumbar disc Degeneration of lumbar or lumbosacral intervertebral disc | + + documented in this encounter"
--- OUTSIDE RECORDS SUMMARY | ~2020-04-06 | XMS | Encounter Summary ---
Demographics + + + | Address | [address] | | | [place] [address] | + + + | Home Phone | | + + + | Preferred Language | Unknown | + + + | Marital Status | | + + + | Denominational Affiliation | Unknown | + + + | Race | Unknown | + + + | Ethnic Group | Unknown | + + + Author + + + | Author | [facility] | | | and Tomasana | + + + | Organization | [facility] | | | and [...] [place] | | | | | [address] | | + + + + + Care Team Providers + +------+ + | Care Lay Ups Assembler Name | Role | Phone | + +------+ + | Jolene Bear | PCP | | + +------+ + Reason for Visit + + + | Reason | Comments | + + + | Back Pain | | + + + Evaluate & Treat (Routine) +--------+ + + + + + | Status | Reason | Specialty | Diagnoses / | Referred By | Referred To | | | | | Procedures | Contact | Contact | +--------+ + + + + + | Closed | Specialty | Neurosurgery | Diagnoses | Jamir, | Rodo, | | | Services | | Chronic | Wojciech Lamb MD | Dario Lamb DO | | | Required | | midline low | [address] | | | | | back pain | [address] | [address] | | | | | with | [place], | [place], [place] | | | | | left-sided | [place] [address] | [address] Phone: | | | | | sciatica | Phone: | [phone] | | | | | Lumbar | [phone] | Fax: | | | | | radiculopath | Fax: | [phone] | | | | | y Lumbar | [phone] | | | | | | spinal | | | | | | | stenosis | | | +--------+ + + + + + Encounter Details +--------+---------+ + + + | Date | Type | Department | Care Team | Description | +--------+---------+ + + + | 12/15/ | Office | [facility] | Dario Koehler, | Osteoarthritis of | | 2017 | Visit | NEUROSURGERY [address] | DO [address] | spine with | | | | [address] | [address] [place], [place] | radiculopathy, | | | | [place] | [address] | lumbar region | | | | [address] | | (Primary Dx); Lumbar | | | | [phone] | | stenosis; Chronic | | | | | | midline low back | | | | | | pain with left-sided | | | | | | sciatica; | | | | | | Neurogenic | | | | | | claudication; Left | | | | | | leg weakness | +--------+---------+ + + + Social History [...] + + + | Blood Pressure | 124/80 | 12/15/2016 2:30 PM | | | | | PST | | + + + + + | Pulse | 90 | 12/15/2016 2:30 PM | | | [...] + + + + | Weight | 147.9 kg (326 lb) | 12/15/2016 2:30 PM | | | | | PST | | + + + + + | Height | 190.5 cm (6' 3") | 12/15/2016 2:30 PM | | | | | PST | | + + + + + | Body Mass Index | 40.75 | 12/15/2016 2:30 PM | | | | | PST | | + + + + + documented in this encounter Patient Instructions Patient Instructions Dario Koehler DO - 12/15/2016 3:05 PM PSTPlease follow-up with you r primary care physician for preoperative clearance. Please present for surgery when scheduled. documented in this encounter Progress Notes Dario Koehler DO - 12/15/2016 3:05 PM PSTFormatting of this note might be different fro m the original. Dario Koehler DO [address] [facility] [place] [address] [place] [address] FAX: NEUROSURGERY HISTORY AND PHYSICAL EXAMINATION CHIEF COMPLAINT: Chief Complaint Patient presents with Back Pain HISTORY OF PRESENT ILLNESS: The patient is a 36 y.o. male with the complaint of back sympt oms that began 7 years ago. The patient describes his jumping on him while he was layi ng on the couch. Then 1.5 years ago he lifted a sewing machine and had a severe exacerbation . The symptoms have been rapidly worsening. He rates the pain as moderate. The symptoms are frequent, daily. He describes the pain as aching and stabbing. The patient describes leg symptoms that occur on left side. The leg symptoms account for g reater than or equal to 90% of his symptoms. The leg symptoms are constant and the symptoms travels from the back down the side of his leg to the top of his foot. The patient also de scribes difficulty walking due to left leg pain and progressive weakness. He says his foot s laps the floor as the day goes on. The patient does not report any change in bowel or bladder function recently. His symptoms improve with rest. His symptoms worsen with changing position, standing, sitting, walking, running, kneeling, bending, twisting and light exertion. He has tried lifestyle modification, rest, physical therapy, heat, TENS, traction, steroid injections were declined by his insurance carrier. PAST MEDICAL HISTORY: Past Medical History Diagnosis Date Anxiety GERD (gastroesophageal reflux disease) Depression Hypertension Gout Bipolar 1 disorder (HCC) Sleep apnea Otitis media ADHD (attention deficit hyperactivity disorder) Hyperlipidemia Neuropathy (HCC) hands and feet Chronic pain Pain in limb PAST SURGICAL HISTORY: Past Surgical History Procedure Laterality Date Tonsillectomy Cholecystectomy CURRENT MEDICATIONS: Current Outpatient Prescriptions Medication Sig Dispense Refill buprenorphine (SUBUTEX) [address] 8 mg under the tongue 3 times daily. gabapentin (NEURONTIN) 300 mg capsule Take 300 mg by mouth 3 times daily. ibuprofen (ADVIL,MOTRIN) 800 MG tablet Take 800 mg by mouth every 6 hours as needed for Pain. tiZANidine (ZANAFLEX) 2 MG tablet Take 2 mg by mouth every 8 hours as needed. No current facility-administered medications for this visit. ALLERGIES: Allergies Allergen Reactions Hydrocodone Hives and Shortness Of Breath With Acetaminophen Latex Rash Metoprolol Itching and Rash Oxycodone Rash SOCIAL HISTORY: The patient reports that he has been smoking Cigarettes. He started smoking about 4 years ago. He has a 3 pack-year smoking history. He has quit using smokeless tobacco. He reports that he drinks alcohol. He reports that he does not use illicit drugs. FAMILY HISTORY: Family History Problem Relation Age of Onset High blood pressure Mother Cancer Maternal Grandmother LIver Cancer Heart attack Maternal Grandfather Cancer Maternal Aunt Liver Cancer Diabetes Maternal Uncle Other (see comment) Maternal Uncle Brain Tumor REVIEW OF SYSTEMS GENERALLY: No fever, no night sweats, no anemia, + fatigue, no recent profound weight parra es. EYES: No eye problems, no use of corrective lenses, no eye injury, no double vision, no bli ndness. EARS, NOSE, AND THROAT: No changes in taste or smell, no hearing difficulty, no ringing in the ears, + ear drainage, no dizziness, no voice changes, no difficulty swallowing, no signi ficant snoring, + sleep apnea, no sinus problems, + major dental work. NEUROLOGICALLY: Please see the review of systems discussed above in the history of present illness. In addition, the patient has numbness/pain of legs, awake with numbness/pain, weakn ess, muscle aching, change in walk, pain in back. PSYCHIATRIC: + depression, no sleep disorders, + anxiety, no bipolar disorder, no psychotic episodes. CARDIOVASCULAR: No heart attacks, no heart murmur, no heart fluttering, no chest pain, no a nkle swelling. LUNG DISEASE: No shortness of breath, no cough, no tuberculosis, no bloody cough, no asthma , no emphysema/COPD. GASTROINTESTINAL: No bowel disease, no nausea or vomiting, no rectal bleeding, + constipati on, no stool incontinence, no liver disease, no gallbladder disease, no abdominal pain, no u lcers. KIDNEY DISEASE: No urinary frequency, no painful or difficult urination, no incontinence. ENDOCRINE: No diabetes, no thyroid disease, no osteopenia or osteoporosis, no breast draina ge. SKIN: No breast lumps, no skin changes, no rashes, no itches. HEMATOLOGIC/LYMPHATIC: No enlarged lymph nodes, no easy or unusual bleeding, no personal hi story of cancer. RHEUMATOLOGIC: No joint arthritis, no rheumatoid arthritis. PHYSICAL EXAMINATION: Blood pressure 124/80, pulse 90, resp. rate 16, height 1.905 m (6' 3"), weight 147.873 kg ( 326 lb). Body mass index is 40.75 kg/(m^2). GENERAL: Dario Majano is in no acute distress with unlabored respirations. The patient does appear uncomfortable throughout the exam today. HEENT: HEAD/FACE: EYES: EARS: NASOPHARNYX: OROPHARNYX: Normocephalic and atraumatic. There are no areas of recent trauma. Normal sclerae without icterus. No drainage or tenderness. Clear without drainage. Clear without erythema. NECK (ANTERIOR): Supple and without palpable masses. CHEST: Clear to ausculation without crackles or wheeze. HEART: Regular rate and rhythm without murmurs. ABDOMEN: Soft, non-tender, non-distended, and without palpable masses. The patient is obese . SPINE: There is no tenderness in the midline of the cervical or thoracic spine. There is n o major palpable deformity of the spine. The lumbar spine shows there is tenderness in the midline of the L4, L5 levels. To palpati on, there is signficant bilateral myofascial tenderness. EXTREMITIES: No cyanosis, clubbing, or edema. Distal pulses are palpable. NEUROLOGICAL EXAM: MENTAL STATUS: The patient is awake, alert, and oriented. He follows simple and complex commands. His speech is fluent, he comprehends speech well, and he repeats well. He has no apparent deficits with short or fpc memory. CRANIAL NERVES: II: Acuity is intact. Hodgson are full to confrontation. III, IV, : The pupils are reactive. Extraocular movements are intact. No ptosis is note d. V: Facial sensation is intact and symmetric. VII: Facial movements are symmetric. VIII: Hearing is intact bilaterally. IX, X: The uvula and palate move appropriately. XI: Shrug is equal bilaterally. XII: Tongue protrusion is midline. MOTOR EXAM: (5 IS NORMAL) * Indicates pain limited MUSCLE/ MOVEMENT: RIGHT LEFT Deltoids 5 5 Biceps 5 5 Triceps 5 5 Wrist Flexion 5 5 Wrist Extension 5 5 Median Intrinsics 5 5 Ulnar Intrinsics 5 5 Accounts Payable Supervisor Strength 5 5 Hip Flexion 5 4* Hip Extension 5 4+ Knee Flexion 5 4+ Knee Extension 5 4+ Dorsiflexion 5 4- Extensor Hallicus Longus 5 4- Plantarflexion 5 4 SENSORY EXAM: Sensory exam shows left L5-type dysesthesia. REFLEXES: (2 OR 2+ IS NORMAL) REFLEX: RIGHT LEFT BICEPS 2+ 2+ BRACHIORADIALIS 2+ 2+ TRICEPS 2+ 2+ PATELLAR 2+ 2+ ACHILLES 2+ 1+ EMERY'S ABSENT ABSENT PLANTAR DOWNGOING DOWNGOING GAIT: Gait is antalgic. He is unable to toe or heel-walk. PERIPHERAL NERVE/MISC: Tinel is negative at the wrists and elbows bilaterally. Phalen is negative. Straight leg raise is positive bilaterally, left worse than right. Flaco's test of the hips is negative bilaterally. RADIOGRAPHIC REVIEW: The patient's imaging was reviewed in detail with the patient today during the visit. The MRI of the lumbar spine from 09/14/16 demonstrates spondylosis L4-5. There is severe central stenosis at that level, most significant on the left. Lumbar flexion and extension views show no dynamic instability. ASSESSMENT: NEUROSURGICAL DIAGNOSES: Encounter Diagnoses Name Primary? Osteoarthritis of spine with radiculopathy, lumbar region Yes Lumbar stenosis Chronic midline low back pain with left-sided sciatica Neurogenic claudication Left leg weakness GENERAL DIAGNOSES: Past Medical History Diagnosis Date Anxiety GERD (gastroesophageal reflux disease) Depression Hypertension Gout Bipolar 1 disorder (HCC) Sleep apnea Otitis media ADHD (attention deficit hyperactivity disorder) Hyperlipidemia Neuropathy (HCC) hands and feet Chronic pain Pain in limb PLAN: Dario Majano presented today, and it was a pleasure seeing this patient and assessing hi s problems. The patient has spondylosis and severe stenosis L4-5. This is likely contributi ng to his back pain, leg pain, leg weakness, and difficulty walking. I had a lengthy discussion with the patient about his options for care including surgical a nd non-surgical options. He would like to proceed with XLIF L4-5. We discussed a smaller la minectomy/discectomy procedure, but he understands that the extent of his stenosis is so gre at that an adequate decompression would require so much bone removal that he would become de stabilized at that level. Given the severity of his symptoms (pain and progressive leg weakn ess) and the radiographic findings (prgressive severe central stenosis), I will obtain urgen t authorization. We discussed the risks, alternatives, and benefits to surgical intervention with Mr. Majano in clinic. These risks included but were not limited to , stroke, heart attack, numbne ss, weakness, paralysis, failure of fusion, failure of hardware, subsidence, adjacent segmen t degeneration, cerebrospinal fluid leak, bleeding, infection, injury to surrounding tissues and organs, injury from positioning, injury to the nerves, difficulty with breathing, diffi culty with swallowing, difficulty with voice change, and need for additional surgery. Surgical options were discussed and the technique to be employed was described in detail to him. All his questions were answered. We discussed that the goal of the surgery is to prevent progression of his disease, but it is not considered a cure. We also discussed that although some patients may obtain 100% sym ptom relief, it is realistic to anticipate that some symptoms will continue postoperatively despite a successful surgery. We also discussed that there is no guarantee that surgery will provide improvement in his c ondition, and indeed may even worsen the symptoms. We also discussed that in the course of the procedure the operative plan may be altered to include more, less, or different levels d epending upon findings in order to provide him with the best possible outcome. I am prescribing a brace before surgery to improve his stability now to support his weak mu scles and to reduce pain by restricting mobility. For multiple (more than 1 level) fusions, I am also prescribing a bone growth stimulator po stoperatively. This is to improve the probability and rate of fusion. He will follow-up with his primary care provider for preoperative clearance and optimizatio n prior to presenting for surgery. ELECTRONICALLY SIGNED BY: Dario Koehler DO, 12/15/2016 15:15 documented in this en counter Plan of Treatment Not on filedocumented as of this encounter Visit Diagnoses + + | Diagnosis | + + | Osteoarthritis of spine with radiculopathy, lumbar region - Primary | + + | Lumbar stenosis Spinal stenosis, lumbar region, without neurogenic claudication | + + | Chronic midline low back pain with left-sided sciatica | + + | Neurogenic claudication Spinal stenosis, lumbar region, with neurogenic claudication | + + | Left leg weakness Other musculoskeletal symptoms referable to limbs | + + documented in this encounter
--- OUTSIDE RECORDS SUMMARY | ~2020-04-06 | XMS | Encounter Summary ---
Demographics + + + | Address | [address] | | | [place] [address] | + + + | Home Phone | | + + + | Preferred Language | Unknown | + + + | Marital Status | | + + + | Mu-Ism Affiliation | Unknown | + + + | Race | Unknown | + + + | Ethnic Group | Unknown | + + + Author + + + | Author | [facility] | | | and Tomasana | + + + | Organization | [facility] | | | and [...] [place] | | | | | [address] | | + + + + + Care Team Providers + +------+ + | Care Director Of Securities And Real Estate Name | Role | Phone | + [...] | Wojciech Lamb MD | [address] | | | | | midline low | [address] | [place], | | | | | back pain | [address] | [place] | | | | | with | [place], | [address] | | | | | left-sided | [place] [address] | Phone: | | | | | sciatica | Phone: | [phone] | | | | | Lumbar | [phone] | Fax: | | | | | radiculopath | Fax: | [phone] | | | | | y Annular | [phone] | | | | | | tear [...] | | | Rehabilitatio | with | MEMORY CARE PROGRAM DIRECTOR [address] | | | | n | sciatica, | [address] | [place], | | | | | unspecified | [place], | [place] [address] | | | | | side | [place] [address] | Phone: | | | | | Unspecified | Phone: | [phone] | | | | | abnormalitie | [phone] | Fax: | | | | | s of gait | Fax: | [phone] | | | | | and mobility | [phone] | | +--------+--------+ + + + + Encounter Details +--------+---------+ + + + | Date | Type | Department | Care Team | Description | +--------+---------+ + + + | 08/26/ | Office | [facility] | Wojciech Clark, | Chronic midline low | | 2016 | Visit | PHYSIATRY [address] | MD [address] | back pain with | | | | [address] | [place], [place] | left-sided sciatica | | | | [place], [place] | [address] | (Primary Dx); Lumbar | | | | [address] | | radiculopathy; | | | | [phone] | | Annular tear of | | [...] office note has been dictated. Report Confirmation# [id number] signed by Wojciech Clark MD at 08/26/2016 12:34 PM PDTMarWojciech MD - 08/26/2016 12:32 PM PDT [facility] PH[facility]SIATRY [address] [facility] [address] OFFICE NOTE WOJCIECH CLARK JR, MD Patient: ERIKA MAJANO Admitting: MR #: [id number] LOC: PT TYPE: Adm Date: 08/26/2016 : [...] prescribed to him by his psychiatrist in [place]. He also receives medication s from his [...] 08/26/2016 12:32:12 Transcribed on 08/27/2016 10:05:37 by [facility] job# [id number] Confirmation #: [id number] cc: DEANNE NAVARRO MD docu mented in [...] with left leg numbness and weakness | [facility] | | COMPARISON: Lumbar CT March [...] + | [facility] | [address] | [place] | [phone] | | [facility] | | [address] | | | - IMAGING | | [...]
--- OUTSIDE RECORDS SUMMARY | ~2020-04-06 | XMS | Encounter Summary ---
Demographics + + + | Address | [address] | | | [place] [address] | + + + | Home Phone | | + + + | Preferred Language | Unknown | + + + | Marital Status | | + + + | Evangelical Affiliation | Unknown | + + + | Race | Unknown | + + + | Ethnic Group | Unknown | + + + Author + + + | Author | [facility] | | | and Tomasana | + + + | Organization | [facility] | | | and [...] [place] | | | | | [address] | | + + + + + Care Team Providers + +------+ + | Care Batch Records Clerk Name | Role | Phone | + [...] Anxiety | | 2012 | | [facility] [place] | DO [address] | | | | | [address] | [place] | | | | | [place] | [address] | | | | | [address] | | | | | | [phone] | | | +--------+ + + + [...]
--- OUTSIDE RECORDS SUMMARY | ~2020-04-06 | XMS | Encounter Summary ---
Demographics + + + | Address | [address] | | | [place] [address] | + + + | Home Phone | | + + + | Preferred Language | Unknown | + + + | Marital Status | | + + + | Bahai Affiliation | Unknown | + + + | Race | Unknown | + + + | Ethnic Group | Unknown | + + + Author + + + | Author | [facility] | | | and [place]ana | + + + | Organization | [facility] | | | and Tomasana [...] [place] | | | | | [address] | | + + + + + Care Team Providers + +------+ + | Care Reproduction Specialist Name | Role | Phone | + [...] + | 02/09/ | Telephone | [facility] | Dario Koehler, | Surgery Appointment | | 2017 | | NEUROSURGERY [address] | DO [address] | (Reminder ); Medical | | | | [address] | [address] [place], [place] | Clearance | | | | [place], [place] | [id number] | | | | | [address] | | | | | | [phone] | | | +--------+ + + + [...]
--- OUTSIDE RECORDS SUMMARY | ~2020-04-06 | XMS | Encounter Summary ---
Demographics + + + | Address | [address] | | | [place] [address] | + + + | Home Phone | | + + + | Preferred Language | Unknown | + + + | Marital Status | | + + + | Taoist Affiliation | Unknown | + + + | Race | Unknown | + + + | Ethnic Group | Unknown | + + + Author + + + | Author | [facility] | | | and [place]omasana | + + + | Organization | [facility] | | | and [...] [place] | | | | | [address] | | + + + + + Care Team Providers + +------+ + | Care Automation Engineer Name | Role | Phone | + +------+ + | Javon Delgado DO | PCP | | + +------+ + Reason for Visit + + + | Reason | Comments | + + + | Back Pain | | + + + Encounter Details +--------+---------+ + + + | Date | Type | Department | Care Team | Description | +--------+---------+ + + + | 04/26/ | Office | [facility] | Danny Javon Rene, | Anxiety (Primary | | 2012 | Visit | MEDIC[facility]PPNER | DO [address] | Dx); Hypertension; | | | | [address] | [place] | Chronic low back | | | | [place] | [address] | pain; Hypogonadism | | | | [address] | | male | | | | [phone] | | | +--------+---------+ + + + Social History + +-------+ [...] + + + | Blood Pressure | 142/90 | 04/26/2013 8:45 AM | | | | | PDT | | + + + + + | Pulse | 118 | 04/26/2013 8:45 AM | | | | | PDT | | + + + + + | Temperature | 36.2 C (97.1 F) | 04/26/2013 8:45 AM | | | | | PDT | | + + + + + | Respiratory Rate | 16 | 04/26/2013 8:45 AM | | | | | PDT | | + + + + + | Oxygen Saturation | 100% | 04/26/2013 8:45 AM | | | | | PDT | | + + + + + | Inhaled Oxygen | - | - | | | Concentration | | | | + + + + + | Weight | 155.1 kg (342 lb) | 04/26/2013 8:45 AM | | | | | PDT | | + + + + + | Height | 190.5 cm (6' 3") | 04/26/2013 8:45 AM | | | | | PDT | | + + + + + | Body Mass Index | 42.75 | 04/26/2013 8:45 AM | | | | | PDT | | + + + + + documented in this encounter Progress Notes Javon Delgado DO - 05/01/2013 8:43 PM PDTFormatting of this note might be different fro m the original. Subjective: Patient ID: Dario Majano is a 33 y.o. male. HPI Patient's medications, allergies, past medical, surgical, social and family histories were reviewed and updated as appropriate. Patient is a 33-year-old male coming in for followup for multiple medical problems today. Hypertension: Control and Compliance Low Sodium Diet: yes Medication compliance: good Home Blood Pressures: Improved but not fully controlled BP: 142/90 mmHg Pt denies: No headache, visual symptoms, neurologic problems, syncope No chest pain, palpitations, SOLOMON, orthopnea, PND, peripheral edema No side effects from any antihypertensive medications Patient complains of low back pain. Low back pain has been chronic. He is started physica l therapy at [facility]. He states that his increased his pain. Pain today is moderate. Located in his low back. Denies radiation to his extremities. No paresthesias. No weakn ess in his lower extremities. Denies bowel or bladder dysfunction.Patient states that the M obic has not been helpful at all. Patient is been trying to exercise. He's been walking with his family. This is been diffi cult. He states that walking increases his pain. He continues to try and diet to improve h is obesity. Patient complains of depression and anxiety. Anxieties the predominant symptom. He has huertas d long history of depression and anxiety. He's been seen by for his mental health in [place] . He is tried multiple medications. States he's had adverse effects with Zoloft, Celexa, P axil, Prozac, Wellbutrin and BuSpar. Currently taking Lamictal. States he needs additional anxiety medication. Complains of panic attacks. Panic attacks come with fear, sweats, rac ing heart, loss of control, hyperventilation. Patient is taking testosterone replacement. Recent labs been done and reviewed. Testoster one is normal. He has an upcoming appointment with endocrinology. Review of Systems Constitutional: Negative. HENT: Negative for neck pain and neck stiffness. Respiratory: Negative. Cardiovascular: Negative. Gastrointestinal: Negative. Musculoskeletal: Positive for back pain and arthralgias. Skin: Negative. Neurological: Negative for dizziness, tremors, weakness, light-headedness and numbness. Psychiatric/Behavioral: Positive for sleep disturbance, dysphoric mood and decreased concen tration. Negative for suicidal ideas, behavioral problems, confusion, self-injury and agitat ion. The patient is nervous/anxious. Objective: Physical Exam Vitals reviewed. Constitutional: He is oriented to person, place, and time. He appears well-developed and we ll-nourished. No distress. HENT: Head: Normocephalic and atraumatic. Neck: Normal range of motion. Neck supple. No JVD present. No thyromegaly present. Cardiovascular: Normal rate and regular rhythm. Exam reveals no gallop and no friction rub . No murmur heard. Pulmonary/Chest: Effort normal and breath sounds normal. No respiratory distress. He has no wheezes. He has no rales. He exhibits no tenderness. Lymphadenopathy: He has no cervical adenopathy. Neurological: He is alert and oriented to person, place, and time. He has normal strength. No sensory deficit. He exhibits normal muscle tone. Reflex Scores: Patellar reflexes are 2+ on the right side and 2+ on the left side. Achilles reflexes are 2+ on the right side and 2+ on the left side. Skin: Skin is dry. He is not diaphoretic. Psychiatric: He has a normal mood and affect. His behavior is normal. Back: Tenderness: Lumbosacral Swelling: None Deformity: None Range of Motion: Flexion: Normal Extension: Normal SLR: Right Negative Left Negative Muscle Strength Abductor: 5/5 Adductor: 5/5 Quadriceps: 5/5 Hamstrings: 5/5 Squatting: normal Reflexes Patellar: Normal Achilles: Normal Sensation: Normal Gait: Normal Toe Walk: normal Heel Walk: normal Assessment: 1. Anxiety hydrOXYzine pamoate (VISTARIL) 25 mg capsule 2. Hypertension 3. Chronic low back pain 4. Hypogonadism male Plan: Dario was seen today for back pain. Diagnoses and associated orders for this visit: Anxiety - hydrOXYzine pamoate (VISTARIL) 25 mg capsule; Take 1-2 capsules by mouth every 6 hours as needed for Anxiety. Patient is given when necessary Vistaril for anxiety. I discussed multiple anxiety medicat ions with him but he claims intolerances to all his medications. His been working with ment tx health providers for his anxiety and depression for many years. He's currently seeing roula lockett for mental health. I do not think we should consider any benzodiazepines for this p atient. He is at high risk for chemical coping. Hypertension Improved but not well controlled we'll continue to recheck in one month Chronic low back pain Low back pain has subjectively worsened with physical therapy thus far. He'll continue wor k with physical therapy. Modifications can be made if any particular activities causing inc reased pain. I continue to advise that he exercise pace himself. Mobic was discontinued du e to lack of effectiveness. trial of nabumetone. Consider medication such as Lyrica or gabapentin or nortriptyline. Followup in one month. No signs of cauda equina or any nerve impingement today. Patient is aware of the symptoms and will let us know immediately if they occur Hypogonadism male Patient's testosterone levels are normal continue current testosterone injections. Consult ation with endocrinology to 2 early onset of hypogonadism. Other Orders - nabumetone (RELAFEN) 750 mg tablet; Take 1 tablet by mouth 2 times daily. documented in this en counter Plan of Treatment Not on filedocumented as of this encounter Visit Diagnoses + + | Diagnosis | + + | Anxiety - Primary Anxiety state, unspecified | + + | Hypertension Unspecified essential hypertension | + + | Chronic low back pain Lumbago | + + | Hypogonadism male Other testicular hypofunction | + + documented in this encounter
--- OUTSIDE RECORDS SUMMARY | ~2020-04-06 | XMS | Encounter Summary ---
Demographics + + + | Address | [address] | | | [place] [address] | + + + | Home Phone | | + + + | Preferred Language | Unknown | + + + | Marital Status | | + + + | Cheondoism Affiliation | Unknown | + + + | Race | Unknown | + + + | Ethnic Group | Unknown | + + + Author + + + | Author | [facility] | | | and [place]omasana | + + + | Organization | [facility] | | | and [place]ana [...] [place] | | | | | [address] | | + + + + + Care Team Providers + +------+ + | Care Drier Take Off Tender Name | Role | Phone | + +------+ + | Javon Delgado DO | PCP | | + +------+ + Encounter Details +--------+ + + + + | Date | Type | Department | Care Team | Description | +--------+ + + + + | 05/06/ | Abstract | [facility] [place] | Wojciech Bowie MD | Unspecified otitis | | 2014 | | OTOLARYNGOLOGY [address] | [address] [place] | media (Primary Dx) | | | | [address] | [address] [place], | | | | | [place], [place] | [place] [address] | | | | | [address] | [phone] | | | | | [phone] | | | +--------+ + + + [...] + | Diagnosis | + + | Unspecified otitis media - Primary | + + documented in this encounter"
--- OUTSIDE RECORDS SUMMARY | ~2020-04-06 | XMS | Encounter Summary ---
Demographics + + + | Address | [address] | | | [place] [address] | + + + | Home Phone | | + + + | Preferred Language | Unknown | + + + | Marital Status | | + + + | Restorationism Affiliation | Unknown | + + + | Race | Unknown | + + + | Ethnic Group | Unknown | + + + Author + + + | Author | [facility] | | | and [place]omasana | + + + | Organization | [facility] | | | [...] [place] | | | | | [address] | | + + + + + Care Team Providers + +------+ + | Care Paper Novelty Maker Name | Role | Phone | + +------+ + | Jolene Bear | PCP | | + +------+ + Encounter Details +--------+ + + + + | Date | Type | Department | Care Team | Description | +--------+ + + + + | 12/16/ | Orders Only | [facility] [place] | Dario Koehler, | Other spondylosis | | 2017 | | NEUROSURGERY [address] | DO [address] | with radiculopathy, | | | | [address] | [address] [place], [place] | lumbar region | | | | [place], [place] | [address] | (Primary Dx); Spinal | | | | [address] | | stenosis, lumbar | | | | [phone] | | region, without | | | | | | neurogenic | | | | | | claudication; | | | | | | Chronic left-sided | | | | | | low back pain with | | | | | | left-sided sciatica; | | | | | | Muscle weakness | | | | | | (generalized) | +--------+ + + + + Social [...] + | Diagnosis | + + | Other spondylosis with radiculopathy, lumbar region - Primary | + + | Spinal stenosis, lumbar region, without neurogenic claudication | + + | Chronic left-sided low back pain with left-sided sciatica | + + | Muscle weakness (generalized) | + + documented in this encounter"
--- OUTSIDE RECORDS SUMMARY | ~2020-04-06 | XMS | Encounter Summary ---
Demographics + + + | Address | [address] | | | [place] [address] | + + + | Home Phone | | + + + | Preferred Language | Unknown | + + + | Marital Status | | + + + | Buddhism Affiliation | Unknown | + + + | Race | Unknown | + + + | Ethnic Group | Unknown | + + + Author + + + | Author | [facility] | | | and [place]omasana | + + + | Organization | [facility] [...] [place] | | | | | [address] | | + + + + + Care Team Providers + +------+ + | Care Harvest Contractor Name | Role | Phone | + [...] | | | | back pain | [address] | [address] | | | | | with | [place], | [place], [place] | | | | | left-sided | [place] [address] | [address] Phone: | | | | | sciatica | Phone: | [phone] | | | | | Lumbar | [phone] | Fax: | | | | | radiculopath | Fax: | [phone] | | | | | y Lumbar | [phone] | | | | | | spinal | | | | | | | stenosis | | | +--------+ + + + + + Encounter Details +--------+---------+ + + + | Date | Type | Department | Care Team | Description | +--------+---------+ + + + | 12/15/ | Office | [facility] | Dario Koehler, | Osteoarthritis of | | 2017 | Visit | NEUROSURGERY [address] | DO [address] | spine with | | | | [address] | [address] [place], [place] | radiculopathy, | | | | [place] | [address] | lumbar region | | | | [address] | | (Primary Dx); Lumbar | | | | [phone] | | stenosis; Chronic | | | [...] m the original. Dario Koehler DO [address] [facility], [address] [place] [address] FAX: NEUROSURGERY HISTORY AND PHYSICAL EXAMINATION CHIEF [...] has no apparent deficits with short or correction memory. CRANIAL NERVES: II: Acuity is intact. [...] Intrinsics 5 5 Ulnar Intrinsics 5 5 Director Of Pediatric Rehabilitation Strength 5 5 Hip Flexion 5 4* [...]
--- OUTSIDE RECORDS SUMMARY | ~2020-04-06 | XMS | Encounter Summary ---
Demographics + + + | Address | [address] | | | [place] [address] | + + + | Home Phone | | + + + | Preferred Language | Unknown | + + + | Marital Status | | + + + | Church Affiliation | Unknown | + + + | Race | Unknown | + + + | Ethnic Group | Unknown | + + + Author + + + | Author | [facility] | | | and Tomasana | + + + | Organization | [facility] | | | and [place]ana | [...] [place] | | | | | [address] | | + + + + + Care Team Providers + +------+ + | Care Lastex Operator Name | Role | Phone | [...] | Specialty | Neurosurgery | Diagnoses | Jamir | Rodo, | | | Services | | Chronic | Wojciech Lamb MD | Dario Lamb DO | | | Required | | midline low | [address] | | | | | back pain | [address] | [address] | | | | | with | [place], | [place] | | | | | left-sided | [place] [address] | [address] Phone: | | | | | sciatica | Phone: | [phone] | | | | | Lumbar | [phone] | Fax: | | | | | radiculopath | Fax: | [phone] | | | | | y Lumbar | [phone] | | | | | | spinal | | | | | | | stenosis | | | +--------+ + + + + + Reason for Visit + + + | Reason | Comments | + + + | Follow-up | MRI f/u | + + + Encounter Details +--------+---------+ + + + | Date | Type | Department | Care Team | Description | +--------+---------+ + + + | 09/27/ | Office | [facility] [place] | Wojciech Clark, | Chronic midline low | | 2016 | Visit | PHYSIATRY [address] | MD [address] | back pain with | | | | [address] | [place] | left-sided sciatica | | | | [place], [place] | [address] | (Primary Dx); Lumbar | | | | [address] | | radiculopathy; | | | | [phone] | | Lumbar spinal | | | | | | stenosis; Lumbar | | | | | | disc herniation with | | | | | | radiculopathy | +--------+---------+ + + + Social History [...] + + + | Blood Pressure | 110/75 | 09/27/2016 12:59 PM | | | | | PST | | + + + + + | Pulse | 100 | 09/27/2016 12:59 PM | | | | | PST | | + + + + + | Temperature | - | - | | + + + + + | Respiratory Rate | 20 | 09/27/2016 12:59 PM | | | | | PST | | + + + + + | Oxygen Saturation | - | - | | + + + + + | Inhaled Oxygen | - | - | | | Concentration | | | | + + + + + | Weight | 147 kg (324 lb) | 09/27/2016 12:59 PM | | | | | PST | | + + + + + | Height | 190.5 cm (6' 3") | 09/27/2016 12:59 PM | | | | | PST | | + + + + + | Body Mass Index | 40.5 | 09/27/2016 12:59 PM | | | | | PST | | + + + + + documented in this encounter Patient Instructions Patient Instructions Wojciech Clark MD - 09/27/2016 1:31 PM PSTWork toward weight loss t hrough diet and exercise. Continue exercises as outlined by prior physical therapy. Please attend the injection appointment with Carlitos Kolb MD. If his office has not co ntacted you within one week, to schedule the injection, please contact my clinic. Your inje ction will be performed at [facility]. Please take note of whether your pain is significantly reduced in the hours immediately following the injecti on. Follow up in the clinic if you have back injection. A neurosurgery consult has been requested.Electronically signed by Wojciech Clark MD at 1:31 PM PST documented in this encounter Progress Notes Wojciech Clark MD - 09/27/2016 1:43 PM PST [facility] PHYSIATRY [address] [facility] [address] OFFICE NOTE WOJCIECH CLARK JR, MD Patient: ERIKA MAJANO Admitting: MR #: [id number] LOC: PT TYPE: Adm Date: 09/27/2016 : 1980 DATE OF : 1980 PRIMARY CARE PROVIDER: JANE Zamarripa DATE OF SERVICE: 09/27/2016 PATIENT IDENTIFICATION: A 36-year-old male with back pain and left radiculopathy. HISTORY OF PRESENT ILLNESS: The patient was last seen by me 1 month ago. At that time, i t was recommended that he have gabapentin tapered up to reduce neuropathic pain. He was se nt for lumbar MRI to evaluate origin of his pain. He has been on buprenorphine for managem ent of prior heroin addiction, as well as pain control. The patient reports midline to left low back pain radiating into left lower extremity. Pa in is currently 5/10 on a numerical pain scale after pain medication. Prior to medication, his pain was 7/10. Pain is constant in timing. Pain in the back is dull. Pain in the le gs can be burning and cramping. Pain is increased by prolonged sitting. Pain is reduced by lying down. Pain is reduced with medication. He has paresthesia in left lower extremit y, primarily over left posterior and lateral thigh, left anterior and lateral foreleg, and into the top and the bottom of the left foot. He reports subtle weakness, left leg. He d enies incontinence of bowel or bladder. He denies pain, numbness, tingling, weakness in ri ght lower extremity. He has previously had physical therapy. He continues daily home exer cise program. He has successfully lost weight in the past. Continues to try to lose some weight with limited success. He denies incontinence of bowel or bladder. He denies saddl e anesthesia. He has tried anti-inflammatory medications and continues to use them now. ALLERGIES: HYDROCODONE, LATEX, METOPROLOL, OXYCODONE. CURRENT MEDICATIONS: Buprenorphine 8 mg 3 times per day. Gabapentin 300 mg 3 times per day. Ibuprofen 800 mg every 6 hours. Tizanidine 2 mg every 8 hours. REVIEW OF SYSTEMS: The patient denies nausea, vomiting, diarrhea, constipation, fever, ch ills, shortness of breath or chest pain. Denies skin breakdown or rash. Denies lymph glan d swelling or unexplained weight loss. All other review of systems negative. PHYSICAL EXAMINATION: VITAL SIGNS: Heart rate 100, respiratory rate 20, blood pressure 110/75. Weight 324 poun ds, height 6 feet 3 inches. GENERAL: No acute distress. Alert to person, place, time and situation. HEENT: Extraocular muscles intact. Sclerae are clear. ABDOMEN: Obese, distended, symmetric. BACK: Tenderness to palpation over midline and left low back. Seated straight leg raise positive on the left, negative on the right. Flaco's test negative bilaterally. EXTREMITIES: Reveals no clubbing, cyanosis or edema in all 4 extremities. NEUROLOGIC: Examination demonstrates intact memory, concentration and speech. Cranial ne rves intact. Sensation reduced over left L5-S1 dermatomes. Sensation intact in right lowe r extremity. Reflexes normal over patella of both lower extremities. Achilles reflex 1+ o n the left compared to 2+ on the right. No clonus to either ankle. Motor examination dem onstrates 4/5 ankle dorsiflexion, knee flexion, strength on the left compared to 5/5 on the right. There is 5/5 hip flexion, knee extension, strength in both lower extremities. Gai t demonstrates mild antalgia. DATABASE: Lumbar MRI imaging personally reviewed by me and reviewed with the patient. Th is imaging is from 09/14/2016. This imaging demonstrates a large central disc extrusion/he rniation at L4-5 which results in severe central canal lumbar spinal stenosis. It is likel y affecting the transversing nerve roots, including L5 and S1 nerve roots. ASSESSMENT: 1. Chronic midline low back pain with left-sided sciatica, ICD-10 M54.42. 2. Left L5 radiculopathy, ICD-10 M54.16. 3. Severe lumbar spinal stenosis at L4-5, ICD-10 M48.06. 4. Large lumbar disc herniation with radiculopathy, ICD-10 M51.16. PLAN: The patient has failed conservative measures to manage back pain and radiculopathy. He has worked towards weight loss, physical therapy. He has tried medications for neuropa thic pain and anti-inflammatory medications. He is encouraged to continue exercises as out lined by previous physical therapy on a routine daily basis. He is encouraged to continue working towards weight loss. He should continue working with his doctor using medication gabapentin. It would once again be up to the discretion of his psychiatrist as to whether or not to start a medication for neuropathic pain, such as nortriptyline, Effexor or Cymba lta. This may not combine with his current buprenorphine. Epidural steroid injection has been requested. Bilateral L5-S1 transforaminal epidural st eroid injection can be helpful in reducing back pain and radicular symptoms from lumbar spi nal stenosis. This injection may be diagnostic and potentially therapeutic. I am also re questing neurosurgical consultation. Current back pain is interfering with his activities of daily living as well as quality of life. Surgical intervention is likely required. In l ooking at the degree of herniation and spinal stenosis, in my opinion, it is a question of when rather than if he needs lumbar surgery. Neurosurgery consultation has been requested . Thank you for allowing me to be involved in the care of your patient. If you have any ques tions regarding the care of Mr. Majano, please do not hesitate to call. WOJCIECH CLARK JR, MD Dictated by WOJCIECH CLARK JR, MD 09/27/2016 13:43:33 Transcribed on 09/28/2016 12:17:42 by [facility] job# [id number] Confirmation #: [id number] signed by Wojciech Clark MD at 09/28/2016 1:32 PM P [facility], Wojciech Lamb MD - 09/27/2016 1:32 PM PSTThis office note has been dictated. Report Confirmation# [id number] signed by Wojciech Clark MD at 09/27/2016 5:24 PM PSTdocumented in this encounter Plan of Treatment + + +--------+ + + | Name | Type | Priori | Associated Diagnoses | Order Schedule | | | | ty | | | + + +--------+ + + | * [facility] | Outpatient | Routin | Chronic midline | Ordered: 09/27/2016 | | Neurosurgery - AMB | Referral | e | low back pain with | | | Referral | | | left-sided sciatica | | | | | | Lumbar | | | | | | radiculopathy | | | | | | Lumbar spinal | | | | | | stenosis | | + + +--------+ + + documented as of this encounter Visit Diagnoses + + | Diagnosis | + + | Chronic midline low back pain with left-sided sciatica - Primary | + + | Lumbar radiculopathy Thoracic or lumbosacral neuritis or radiculitis, unspecified | + + | Lumbar spinal stenosis Spinal stenosis, lumbar region, without neurogenic | | claudication | + + | Lumbar disc herniation with radiculopathy Displacement of lumbar intervertebral disc | | without myelopathy | + + documented in this encounter
--- OUTSIDE RECORDS SUMMARY | ~2020-04-06 | XMS | Encounter Summary ---
Demographics + + + | Address | [address] | | | [place] [address] | + + + | Home Phone | | + + + | Preferred Language | Unknown | + + + | Marital Status | | + + + | Congregational Affiliation | Unknown | + + + | Race | Unknown | + + + | Ethnic Group | Unknown | + + + Author + + + | Author | [facility] | | | and Tomasana | + + + | Organization | [facility] | | | and Tomasana | [...] [place] | | | | | [address] | | + + + + + Care Team Providers + +------+ + | Care Trackmobile Operator Name | Role | Phone | [...] | | | | CLINIC [address] | [address] [place], [place] | Dx); Hyperlipidemia, | | | | [place], [place] | [address] | unspecified | | | | [address] | | hyperlipidemia type; | | | [...] [address] | [place] | [phone] | | [facility] | | [address] | | | - LABORATORY | | [...] [address] | [place] | [phone] | | [facility] | | [address] | | | - LABORATORY | | [...] | | | | SIMON GERMAN MD ([id number]) | | | | | | on [...]
--- OUTSIDE RECORDS SUMMARY | ~2020-04-06 | XMS | Encounter Summary ---
Demographics + + + | Address | [address] | | | [place] [address] | + + + | Home Phone | | + + + | Preferred Language | Unknown | + + + | Marital Status | | + + + | Judaism Affiliation | Unknown | + + + | Race | Unknown | + + + | Ethnic Group | Unknown | + + + Author + + + | Author | [facility] | | | and Tomasana | + + + | Organization | [facility] | | | and Tomasana [...] [place] | | | | | [address] | | + + + + + Care Team Providers + +------+ + | Care Tech Intern Name | Role | Phone | + [...] | | | | back pain | [address] | [address] | | | | | with | [place], | [place] | | | | | left-sided | [place] [address] | [address] Phone: | | | | | sciatica | Phone: | [phone] | | | | | Lumbar | [phone] | Fax: | | | | | radiculopath | Fax: | [phone] | | | | | y Lumbar | [phone] | | | | | | spinal [...] + + | 09/27/ | Office | [facility] [place] | Wojciech Clark, | Chronic midline low | | 2016 | Visit | PHYSIATRY [address] | MD [address] | back pain with | | | | [address] | [place] | left-sided sciatica | | | | [place], [place] | [address] | (Primary Dx); Lumbar | | | | [address] | | radiculopathy; | | | | [phone] | | Lumbar spinal | | | [...] Your inje ction will be performed at [facility]. Please take note of whether your pain is significantly reduced in the hours immediately following the injecti on. Follow up in the clinic if you have back injection. A neurosurgery consult has been requested.Electronically signed by Wojciech Clark MD at 1:31 PM PST documented in this encounter Progress Notes Wojciech Clark MD - 09/27/2016 1:43 PM PST [facility] PHYSIATRY [address] [facility] [address] OFFICE NOTE WOJCIECH CLARK JR, MD Patient: ERIKA MAJANO Admitting: MR #: [id number] LOC: PT TYPE: Adm Date: 09/27/2016 : [...] 09/27/2016 13:43:33 Transcribed on 09/28/2016 12:17:42 by [facility] job# [id number] Confirmation #: [id number] signed by Wojciech Clark MD at 09/28/2016 1:32 PM P [facility], Wojciech Lamb MD - 09/27/2016 1:32 PM PSTThis office note has been dictated. Report Confirmation# [id number] signed by Wojciech Clark MD at 09/27/2016 [...]
--- OUTSIDE RECORDS SUMMARY | ~2020-04-06 | XMS | Encounter Summary ---
Demographics + + + | Address | [address] | | | [place] [address] | + + + | Home Phone | | + + + | Preferred Language | Unknown | + + + | Marital Status | | + + + | Episcopal Affiliation | Unknown | + + + | Race | Unknown | + + + | Ethnic Group | Unknown | + + + Author + + + | Author | [facility] | | | and Tomasana | + + + | Organization | [facility] | | | and [...] [place] | | | | | [address] | | + + + + + Care Team Providers + +------+ + | Care Car Detailer Name | Role | Phone | + +------+ + | oJlene Bear | PCP | | + +------+ + Encounter Details +--------+ + + + + | Date | Type | Department | Care Team | Description | +--------+ + + + + | 12/15/ | Hospital | [facility] | Dario Koehler, | Chronic right-sided | | 2017 | Encounter | MED CTR XRAY [address] | DO [address] | back pain, | | | | [place] | [address] [place] | unspecified back | | | | [place] [address] | [address] | location | | | | [phone] | | | +--------+ + + + [...] + +--------+ + + + | XR LUMBAR SPINE 4 + | Routin | 12/15/2016 | Chronic | Results for this | | VW | e | 1:59 PM | right-sided back | procedure are in the | | | | PST | pain, unspecified | results section. | | | | | back location | | + +--------+ + + + documented in this encounter Results XR Lumbar Spine 4 + Vw (12/15/2016 1:59 PM PST) + + | Specimen | + + | | + + + + + | Narrative | Performed At | + + + | XR LUMBAR SPINE 4 + VW 12/15/2016 1:59 PM HISTORY: Back pain. | [facility] | | COMPARISON: Multiple priors. FINDINGS: There is mild | [facility] | | spondylosis. Bone mineralization is normal. No instability is | [facility] | | observed. Vertebral body height are preserved with no evidence for | - IMAGING | | compression fractures. Disc height are maintained. Facet joints are | | | intact. Visualized ribs and pelvic osseous structures show no acute | | | findings. Cholecystectomy clips are noted. IMPRESSION - Mild | | | spondylosis, no instability. Dictated and Signed by: Fabrice Armas | | | Electronically signed: 12/15/2016 2:01 PM | | + + + + + | Procedure Note | + + | Mina, Rad Results In - 12/15/2016 2:04 PM PST XR LUMBAR SPINE 4 + VW 12/15/2016 1:59 | | PMHISTORY: Back pain.COMPARISON: Multiple priors.FINDINGS:There is mild spondylosis. | | Bone mineralization is normal. No instability isobserved. Vertebral body height are | | preserved with no evidence for compressionfractures. Disc height are maintained. Facet | | joints are intact. Visualized ribsand pelvic osseous structures show no acute findings. | | Cholecystectomy clips arenoted.IMPRESSION -Mild spondylosis, no instability.Dictated and | | Signed by: Fabrice Armas MD Electronically signed: 12/15/2016 2:01 PM | |There is mild spondylosis. Bone mineralization is normal. No instability is | |observed. Vertebral body height are preserved with no evidence for compression | |fractures. Disc height are maintained. Facet joints are intact. Visualized ribs | |and pelvic osseous structures show no acute findings. Cholecystectomy clips are | |noted. | | | |IMPRESSION - | |Mild spondylosis, no instability. | | | |Dictated and Signed by: Fabrice Armas MD | | Electronically signed: 12/15/2016 2:01 PM | + + + + + + + | Performing | Address | City/State/Zipcode | Phone Number | | Organization | | | | + + + + + | [facility] | [address] | [place] | [phone] | | [facility] | | [address] | | | - IMAGING | | | | + + + + + documented in this encounter Visit Diagnoses + + | Diagnosis | + + | Chronic right-sided back pain, unspecified back location | + + documented in this encounter"
--- OUTSIDE RECORDS SUMMARY | ~2020-04-06 | XMS | Encounter Summary ---
Demographics + + + | Address | [address] | | | [place] [address] | + + + | Home Phone | | + + + | Preferred Language | Unknown | + + + | Marital Status | | + + + | Episcopal Affiliation | Unknown | + + + | Race | Unknown | + + + | Ethnic Group | Unknown | + + + Author + + + | Author | [facility] | | | and Tomasana | + + + | Organization | [facility] | | | and Tomasana [...] [place] | | | | | [address] | | + + + + + Care Team Providers + +------+ + | Care Filtering Machine Tender Helper Name | Role | Phone | + +------+ + | Provider Not, In System | PCP | Unavailable | + +------+ + Reason for Visit + + + | Reason | Comments | + + + | New Patient | both ears have blood, drainage, and puss, has been going on for a | | | month | + + + Evaluate & Treat (Routine) +--------+--------+ + + + + | Status | Reason | Specialty | Diagnoses / | Referred By | Referred To | | | | | Procedures | Contact | Contact | +--------+--------+ + + + + | Closed | | Otolaryngolog | Diagnoses | Provider | Wojciech Clark | | | | y | | Not, In | E, [address] | | | | | [facility] | System | [address] | | | | | wter | [place] | [address] | | | | | Procedures | Health and | [place], | | | | | NEW PATIENT | Service | [place] [address] | | | | | | | Phone: | | | | | | | [phone] | | | | | | | Fax: | | | | | | | [phone] | +--------+--------+ + + + + Encounter Details +--------+---------+ + + + | Date | Type | Department | Care Team | Description | +--------+---------+ + + + | 05/07/ | Office | [facility] | Wojciech Clark MD | Other chronic otitis | | 2015 | Visit | OTOLARYNGOLOGY [address] | [address] [place] | externa (Primary | | | | [address] | [address] [place], | Dx) | | | | [place] | [place] [address] | | | | | [address] | [phone] | | | | | [phone] | | | +--------+---------+ + + + [...] + + + | Blood Pressure | - | - | | + + + + + | Pulse | 100 | 05/07/2015 3:07 PM | | | | | PDT | | + + + + + | Temperature | - | - | | + + + + + | Respiratory Rate | 16 | 05/07/2015 3:07 PM | | | [...] Weight | 155.1 kg (342 lb) | 05/07/2015 3:07 PM | | | | | PDT | | + + + + + | Height | 190.5 cm (6' 3") | 05/07/2015 3:07 PM | | | | | PDT | | + + + + + | Body Mass Index | 42.75 | 05/07/2015 3:07 PM | | | | | PDT | | + + + + + documented in this encounter Progress Notes Wojciech Clark MD - 05/07/2015 3:29 PM PDT [facility] OTOLARY[facility]OLOGY [address] [facility] [address] OFFICE NOTE WOJCIECH CLARK MD Patient: DARIO MAJANO Admitting: MR #: [id number] LOC: PT TYPE: Adm Date: 05/07/2015 : 1980 DATE OF VISIT: 05/07/2015 The patient comes in because he has problems with a lot of pain and drainage from his ears now for about a month. He has been treated with oral antibiotics and also antibiotic eard rops and has not improved. He has to take pain medicine, particularly at night to help him get through the night because of the pain and discomfort. He currently is taking some Pe rcocet. The patient has not had problems like this previously. He cleans his ears a number of times a week with Q-tips. No other ENT complaints. PHYSICAL EXAMINATION: GENERAL: Shows an alert 35-year-old male. He is communicating well, his voice quality is good. SKIN: Skin of the face, nose and ears all appears to be healthy. NECK: Parotid, submandi bular glands are smooth. There are no masses or lymphadenopathy noted. Thyroid area appea rs normal. Trachea is midline. NOSE: Nasal passages: No obstruction, no mass or lesion noted. EARS: The ear canals huertas ve debris in both ears, and there is obvious fungal elements noted in the right ear. There is a little bit in the left ear. Both ears were thoroughly cleaned and once cleaned the patient was given a prescription of Lotrimin 1-percent solution to put in his ears. I also advised to quit using the Q-tips. He will clean the ears a little bit with some Kleenex if he needs to. He will be re-seen again in 2 weeks' time. He was given a prescription of Mclean 7.5 mg to help with the pain , but also advised to use some anti-inflammatory such as Motrin or Aleve. WOJCIECH CLARK MD Dictated by WOJCIECH CLARK MD 05/07/2015 15:29:06 Transcribed on 05/08/2015 06:40:51 by dl job# [id number] Confirmation #: [id number] signed by Wojciech Clark MD at 05/08/2015 7:57 AM PDT Wojciech Clark MD - 05/07/2015 3:26 PM PDTSee dictation # [id number] signed by Wojciech Clark MD at 05/07/2015 3:29 PM PDTdocumented in th is encounter Plan of Treatment Not on filedocumented as of this encounter Visit Diagnoses + + | Diagnosis | + + | Other chronic otitis externa - Primary | + + documented in this encounter
--- OUTSIDE RECORDS SUMMARY | ~2020-04-06 | XMS | Encounter Summary ---
Demographics + + + | Address | [address] | | | [place] [address] | + + + | Home Phone | | + + + | Preferred Language | Unknown | + + + | Marital Status | | + + + | Hinduism Affiliation | Unknown | + + + | Race | Unknown | + + + | Ethnic Group | Unknown | + + + Author + + + | Author | [facility] | | | and Tomasana | + + + | Organization | [facility] | | | and [...] [place] | | | | | [address] | | + + + + + Care Team Providers + +------+ + | Care Machine Lead Burner Name | Role | Phone | + [...] + + | Closed | Specialty | Endocrinology | Diagnoses | Danny, | Lianne, | | | Services | | | Javon López DO | MD Lina | | | Required | | Hypogonadism | [address] | [address] | | | | | male | [address] | [address] | | | | | | [place] | [place] | | | | | | [address] | [address] Phone: | | | | | | Phone: | [phone] | | | | | | [phone] | Fax: | | | | | | Fax: | [phone] | | | | | | [phone] | | +--------+ + + + + + Evaluate & Treat (Routine) +--------+ + + + + + | Status | Reason | Specialty | Diagnoses / | Referred By | Referred To | | | | | Procedures | Contact | Contact | +--------+ + + + + + | Closed | Specialty | Physical | Diagnoses | [place]ter, | [facility] | | | Services | Therapy | | Javon López DO | Pt Acute | | | Required | | Displacement | [address] | [address] | | | | | of lumbar | [address] [place] | [place], | | | | | intervertebr | [place] | [place] | | | | | al disc | [address] | [address] | | | | | without | Phone: | Phone: | | | | | myelopathy | [phone] | [phone] | | | | | | Fax: | Fax: | | | | | | [phone] | [phone] | +--------+ + + + + + Reason for Visit + + + | Reason | Comments | + + + | Establish Care | | + + + Encounter Details +--------+---------+ + + + | Date | Type | Department | Care Team | Description | +--------+---------+ + + + | 03/28/ | Office | [facility] | Javon Delgado, | Lumbar back pain | | 2012 | Visit | [facility] [place] | DO [address] | (Primary Dx); | | | | [address] | [place], [place] | Herniated lumbar | | | | [place], [place] | [address] | disc without | | | | [address] | | myelopathy; | | | | [phone] | | Hypogonadism male; | | | | | | Hypertension | +--------+---------+ + + + Social History [...] + + + | Blood Pressure | 148/90 | 2013 10:19 AM | | | | | PDT | | + + + + + | Pulse | 110 | 2013 10:19 AM | | | | | PDT | | + + + + + | Temperature | 36.7 C (98 F) | 2013 10:19 AM | | | | | PDT | | + + + + + | Respiratory Rate | 16 | 2013 10:19 AM | | | | | PDT | | + + + + + | Oxygen Saturation | 98% | 2013 10:19 AM | | | | | PDT | | + + + + + | Inhaled Oxygen | - | - | | | Concentration | | | | + + + + + | Weight | 158.8 kg (350 lb) | 2013 10:19 AM | | | | | PDT | | + + + + + | Height | 190.5 cm (6' 3") | 2013 10:19 AM | | | | | PDT | | + + + + + | Body Mass Index | 43.75 | 2013 10:19 AM | | | | | PDT | | + + + + + documented in this encounter Progress Notes Javon Delgado DO - 03/29/2013 11:02 PM PDTFormatting of this note might be different fro m the original. Subjective: Dario Majano is a 33 y.o. male patient of Javon Delgado Chief Complaint: Establish Care Visit Diagnoses: 1. Lumbar back pain 2. Herniated lumbar disc without myelopathy 3. Hypogonadism male 4. Hypertension Hypertension: Control and Compliance Low Sodium Diet: yes Medication compliance: good Home Blood Pressures: Elevated BP: 148/90 mmHg Pt denies: No headache, visual symptoms, neurologic problems, syncope No chest pain, palpitations, SOLOMON, orthopnea, PND, peripheral edema No side effects from any antihypertensive medications Patient has history of hypogonadism. He's been on testosterone replacement for years. He states initially his testosterone level was very low. No further endocrinology followup wer e testing was done. Denies rectal dysfunction. Testosterone has been effective in increasi ng energy. He is taking testosterone injections every 2 weeks. He is never tried topical c natalie. He did try the patch but had too much sweating and it did not stick. Patient has chronic back problems. Pain is located in low back. Does not radiate. Injury was initially when his jumped on his back when he was lying on a couch. This was year s ago. He's had some improvement gradually his pain over the past few years. He has not do ne physical therapy. He is placed on tramadol for pain management 2 months ago. He has not tolerated it well. He states he is muscle jerks and twitches. It has given him headaches. He's not taking any anti-inflammatories. No numbness or tingling. No weakness in his low er extremities. No bowel or bladder dysfunction. Patient is working. No Known Allergies Medications: He has a current medication list which includes the following prescription(s): atomoxetine, lamotrigine, zolpidem, omeprazole, testosterone cypionate, meloxicam, tramadol, and lisinop ril-hydrochlorothiazide. Past Medical History He has a past medical history of Anxiety; GERD (gastroesophageal reflux disease); Depressio n; and Hypertension. Past Surgical History He has past surgical history that includes Tonsillectomy. Family History: His family history includes High blood pressure in his mother. Social History: He reports that he has never smoked. He has never used smokeless tobacco. He reports that h e does not drink alcohol or use illicit drugs. Review of Systems Constitutional: Denies fever, chills, sweats, fatigue/weakness, and unexpected weight atkinson ge. Sleep: Denies trouble sleeping, excessive snoring, and daytime sleepiness Eyes: Denies blurring, diplopia, and vision loss. ENT: Denies earache, tinnitus, decreased hearing, nasal congestion, nosebleeds, sore throa t, and hoarseness. Resp: Denies cough, dyspnea at rest, dyspnea on exertion, and wheezing. CV: Denies neck/chest/jaw pain with exertion, palpitations, lightheadedness, syncope, dysp florencio on exertion, orthopnea, PND, peripheral edema, and claudication. GI: Denies trouble swallowing, heartburn, nausea, vomiting, abdominal pain, diarrhea, cons tipation,melena, and hematochezia. Denies dysuria, hematuria, urinary frequency, difficulty emptying bladder, nocturia, dec reased libido, and erectile dysfunction. Musculoskeletal: Positive for chronic low back pain Derm: Denies rash, itching, dryness, and suspicious lesions. Neurologic: Denies frequent headaches, transient focal weakness, transient vision loss in o ne eye, seizures, tremors, numbness or tingling in hands or feet, vertigo, and fall or diffi culty walking in past 6 months Psych Denies depression, anxiety, trouble concentrating, and memory loss. Endo Denies polydipsia, polyuria, polyphagia, cold intolerance, heat intolerance, and unusu al weight change. Heme Denies abnormal bruising, bleeding, and enlarged lymph nodes. Allergy Denies urticaria, allergic rash, hay fever ID Denies recurrent infections, HIV risks or exposure, and risk for other STDs. Objective BP 148/90 | Pulse 110 | Temp(Src) 36.7 C (98 F) (Temporal) | Resp 16 | Ht 1.905 m (6' 3 ") | Wt 158.759 kg (350 lb) | BMI 43.75 kg/m2 | SpO2 98% General Appearance: Alert, cooperative, no distress, appears stated age, Obesity Head: Normocephalic, without obvious abnormality, atraumatic Eyes: PERRL, conjunctiva/corneas clear, EOM's intact Ears: Normal TM's, external auditory canals, and acuity Nose: Nares normal, septum midline, mucosa normal, no drainage or sinus tenderness Throat: Lips, mucosa, and tongue normal; teeth and gums normal Neck: Supple, symmetrical, no adenopathy, thyroid: not enlarged, symmetric, no tenderness/m ass/nodules, no carotid bruit or JVD Back: Symmetric, ROM normal, no CVA tenderness Lungs: Clear to auscultation bilaterally, respirations unlabored Chest Wall: No tenderness or deformity Heart: Regular rate and rhythm, S1, S2 normal, no murmur, rub or gallop Abdomen: Soft, non-tender, bowel sounds active all four quadrants, no masses, no organom egaly Genitalia: Testes descended bilaterally without masses. No hernia. Rectal: Normal tone, normal prostate, no masses or tenderness; Extremities: Extremities normal, atraumatic, no cyanosis, clubbing, or edema Skin: Skin color, texture, turgor normal, no rashes or lesions Lymph nodes: Cervical, supraclavicular, and axillary nodes normal Neurologic: CN II-XII intact. Motor exam 5/5 throughout. Gait normal. DTR's 2+ and symme trical Tenderness: Lumbosacral Swelling: None Deformity: None Range of Motion: Flexion: Normal Extension: Normal SLR: Right Negative Left Negative Seated leg raise: nomal Muscle Strength Abductor: 5/5 Adductor: 5/5 Quadriceps: 5/5 Hamstrings: 5/5 Squatting: normal Reflexes Patellar: Normal Achilles: Normal Sensation: Normal Gait: Normal Toe Walk: normal Heel Walk: normal No results found for this or any previous visit. Assessment And Plans Dario was seen today for establish care. Diagnoses and associated orders for this visit: Lumbar back pain - Ambulatory referral to Physical Therapy; Future - meloxicam (MOBIC) 7.5 mg tablet; Take 1-2 tablets by mouth Daily as needed for Pain. Patient will be weaned off tramadol. I do not recommend long-term opiate management and he has not tolerated the medication well. Started on meloxicam. Medication risks and benefits were reviewed in detail today with the patient who expresses understanding. Pt will call or return with problems or side effects. Physical therapy was started. Follow up in one month. No signs of neurologic compression or cauda equina syndrome. If any of these symptoms occur he needs to seek immediate medical care Herniated lumbar disc without myelopathy - Ambulatory referral to Physical Therapy; Future - meloxicam (MOBIC) 7.5 mg tablet; Take 1-2 tablets by mouth Daily as needed for Pain. Records requested from prior physician including prior MRI Hypogonadism male - Ambulatory referral to Endocrinology; Future Patient is young and had significantly low testosterone levels. Labs been ordered. Discus sed importance of endocrinology consultation. Patient is agreeable to this. Hypertension - lisinopril-hydrochlorothiazide (PRINZIDE,ZESTORETIC) 20-12.5 MG per tablet; Take 2 tablet s by mouth Daily. Continue current dose of blood pressure medication. Labs been ordered. We'll recheck bloo d pressure in one month. Likely will need additional management. Discussed weight loss and the fact that his obesities having on his blood pressure in his b ack. Diet and exercise counseling is been done today. Other Orders - Discontinue: lisinopril-hydrochlorothiazide (PRINZIDE,ZESTORETIC) 20-12.5 MG per tablet; Take 2 tablets by mouth Daily. - atoMOXetine (STRATTERA) 100 MG capsule; Take 100 mg by mouth Daily. - lamotrigine (LAMICTAL) 150 MG tablet; Take 150 mg by mouth Daily. - zolpidem (AMBIEN) 10 mg tablet; Take 10 mg by mouth nightly as needed. - omeprazole (PRILOSEC) 20 mg capsule; Take 20 mg by mouth every morning (before breakfast) . - Discontinue: traMADol (ULTRAM) 50 mg tablet; Take 50 mg by mouth every 6 hours as needed. - testosterone cypionate (DEPO-TESTOSTERONE) 200 mg/mL injection; Inject into the muscle e very 14 days. - Discontinue: ibuprofen (ADVIL, MOTRIN) 200 mg tablet; Take 800 mg by mouth every 6 hours as needed. - traMADol (ULTRAM) 50 mg tablet; One tab 2 x daily for 2 week then once daily for 2 weeks then stop Care instructions and warning signs were discussed. Medications per orders. Side effects discussed. Labs and investigations per orders. Recheck One month. Sooner prn. documented in this en counter Plan of Treatment + +------+--------+ + + | Name | Type | Priori | Associated Diagnoses | Order Schedule | | | | ty | | | + +------+--------+ + + | Lipid Profile | Lab | Routin | Hypertension | 1 Occurrences | | | | e | | starting 03/29/2013 | | | | | | until 03/29/2014 | + +------+--------+ + + | Comprehensive | Lab | Routin | Hypertension | 1 Occurrences | | Metabolic Panel | | e | | starting 03/29/2013 | | | | | | until 03/29/2014 | + +------+--------+ + + | TSH | Lab | Routin | Hypertension | Expected: 09/25/2013 | | | | e | | (Approximate), | | | | | | Expires: 03/29/2014 | + +------+--------+ + + | Testosterone, Total | Lab | Routin | Hypogonadism male | 1 Occurrences | | and Free | | e | | starting 03/29/2013 | | | | | | until 03/29/2014 | + +------+--------+ + + + + +--------+ + + | Name | Type | Priori | Associated Diagnoses | Order Schedule | | | | ty | | | + + +--------+ + + | Ambulatory referral | Outpatient | Routin | Lumbar back pain | 1 Occurrences | | to Physical Therapy | Referral | e | Herniated lumbar | starting 2013 | | | | | disc without | until 2014 | | | | | myelopathy | | + + +--------+ + + | Ambulatory referral | Outpatient | Routin | Hypogonadism male | 1 Occurrences | | to Endocrinology | Referral | e | | starting 2013 | | | | | | until 2014 | + + +--------+ + + documented as of this encounter Visit Diagnoses + + | Diagnosis | + + | Lumbar back pain - Primary Lumbago | + + | Herniated lumbar disc without myelopathy Displacement of lumbar intervertebral disc | | without myelopathy | + + | Hypogonadism male Other testicular hypofunction | + + | Hypertension Unspecified essential hypertension | + + documented in this encounter
--- OUTSIDE RECORDS SUMMARY | ~2020-04-06 | XMS | Encounter Summary ---
Demographics + + + | Address | [address] | | | [place] [address] | + + + | Home Phone | | + + + | Preferred Language | Unknown | + + + | Marital Status | | + + + | Scientology Affiliation | Unknown | + + + | Race | Unknown | + + + | Ethnic Group | Unknown | + + + Author + + + | Author | [facility] | | | and Tomasana | + + + | Organization | [facility] | | | [...] [place] | | | | | [address] | | + + + + + Care Team Providers + +------+ + | Care Tower Switch Operator Name | Role | Phone | + +------+ + | Jolene Bear | PCP | | + +------+ + Reason for Visit + + + | Reason | Comments | + + + | Medical Clearance | | + + + Encounter Details +--------+ + + + + | Date | Type | Department | Care Team | Description | +--------+ + + + + | 02/13/ | Telephone | [facility] [place] | Dario Koehler, | Medical Clearance | | 2017 | | NEUROSURGERY [address] | DO [address] | | | | | [address] | [address] [place], [place] | | | | | [place], [place] | [address] | | | | | [address] | | | | | | [phone] | | | +--------+ + + + [...]
--- OUTSIDE RECORDS SUMMARY | ~2020-04-06 | XMS | Encounter Summary ---
Demographics + + + | Address | [address] | | | [place] [address] | + + + | Home Phone | | + + + | Preferred Language | Unknown | + + + | Marital Status | | + + + | Spiritism Affiliation | Unknown | + + + | Race | Unknown | + + + | Ethnic Group | Unknown | + + + Author + + + | Author | [facility] | | | and Tomasana | + + + | Organization | [facility] | | | and Tomasana [...] [place] | | | | | [address] | | + + + + + Care Team Providers + +------+ + | Care Embedded Software Manager Name | Role | Phone | [...] [place] | | | | | | [address] | [address] Phone: | | | | | | Phone: | [phone] | | | | | | [phone] | Fax: | | | | | | Fax: | [phone] | | | | | | [phone] | | +--------+ + + + + [...] | [address] | [address] | | | | | of lumbar | [address] [place] | [place], | | | | | intervertebr | [place] | [place] | | | | | al disc | [address] | [address] | | | | | without | Phone: | Phone: | | | | | myelopathy | [phone] | [phone] | | | | | | Fax: | Fax: | | | | | | [phone] | [phone] | +--------+ + + + + + Reason for Visit + + + | Reason | Comments | + + + | Establish Care | | + + + Encounter Details +--------+---------+ + + + | Date | Type | Department | Care Team | Description | +--------+---------+ + + + | 03/28/ | Office | [facility] | Javon Delgado, | Lumbar back pain | | 2012 | Visit | [facility] [place] | DO [address] | (Primary Dx); | | | | [address] | [place], [place] | Herniated lumbar | | | | [place], [place] | [address] | disc without | | | | [address] | | myelopathy; | | | | [phone] | | Hypogonadism male; | | | [...]
--- OUTSIDE RECORDS SUMMARY | ~2020-04-06 | XMS | Encounter Summary ---
Demographics + + + | Address | [address] | | | [place] [address] | + + + | Home Phone | | + + + | Preferred Language | Unknown | + + + | Marital Status | | + + + | Church Affiliation | Unknown | + + + | Race | Unknown | + + + | Ethnic Group | Unknown | + + + Author + + + | Author | [facility] | | | and Tomasana | + + + | Organization | [facility] [...] [place] | | | | | [address] | | + + + + + Care Team Providers + +------+ + | Care Dobie Man Name | Role | Phone | + [...] [place], | | | | | [place], [place] | [place] [address] | | | | | [address] | [phone] | | | | | [phone] | | | +--------+ + + + [...]
--- OUTSIDE RECORDS SUMMARY | ~2020-04-06 | XMS | Encounter Summary ---
Demographics + + + | Address | [address] | | | [place] [address] | + + + | Home Phone | | + + + | Preferred Language | Unknown | + + + | Marital Status | | + + + | Amish Affiliation | Unknown | + + + | Race | Unknown | + + + | Ethnic Group | Unknown | + + + Author + + + | Author | [facility] | | | and Tomasana | + + + | Organization | [facility] | | | and [...] [place] | | | | | [address] | | + + + + + Care Team Providers + +------+ + | Care Telephone Betting Clerk Name | Role | Phone | + +------+ + | Joleen Bear | PCP | | + +------+ + Encounter Details +--------+ + + + + | Date | Type | Department | Care Team | Description | +--------+ + + + + | 10/10/ | Orders Only | [facility] [place] | Dario Koehler, | Chronic right-sided | | 2016 | | NEUR[address]UR[address]ERY [address] | DO [address] | back pain, | | | | [address] | [address] [place], [place] | unspecified back | | | | [place], [place] | [address] | location (Primary | | | | [address] | | Dx) | | | | [phone] | | | +--------+ + + + [...] Not on filedocumented as of this encounter Results XR Lumbar Spine 4 [...] Signed by: Fabrice Armas | | | MD Electronically signed: 12/15/2016 2:01 PM | | [...] + + | [address] | [address] | [place] | [phone] | | [facility] | | [address] | | | - IMAGING | | | | + + + + + documented in this encounter Visit Diagnoses + + | Diagnosis | + + | Chronic right-sided back pain, unspecified back location - Primary | + + documented in this encounter"
--- OUTSIDE RECORDS SUMMARY | ~2020-04-06 | XMS | Encounter Summary ---
Demographics + + + | Address | [address] | | | [place] [address] | + + + | Home Phone [...] | Author | [facility] | | | and Tomasana | + + + | Organization | [facility] | | | and Tomasana [...] [place] | | | | | [address] | | + + + + + Care Team Providers + +------+ + | Care Launch Check Out Name | Role | Phone | + [...] Results | | 2012 | | [facility] [place] | DO [address] | | | | | [address] | [place] | | | | | [place] | [address] | | | | | [address] | | | | | | [phone] | | | +--------+ + + + [...]
--- OUTSIDE RECORDS SUMMARY | ~2020-04-06 | XMS | Encounter Summary ---
Demographics + + + | Address | [address] | | | [place] [address] | + + + | Home Phone | | + + + | Preferred Language | Unknown | + + + | Marital Status | | + + + | Baptism Affiliation | Unknown | + + + | Race | Unknown | + + + | Ethnic Group | Unknown | + + + Author + + + | Author | [facility] | | | and Tomasana | + + + | Organization | [facility] | | | and [...] [place] | | | | | [address] | | + + + + + Care Team Providers + +------+ + | Care Amusement Or Recreation Card Checker Name | Role | Phone | + [...] [address] | [address] [place], [place] | lumbar region | | | | [place], [place] | [address] | (Primary Dx); Spinal | | | | [address] | | stenosis, lumbar | | | | [phone] | | region, without | | | [...]
--- OUTSIDE RECORDS SUMMARY | ~2020-04-06 | XMS | Encounter Summary ---
Demographics + + + | Address | [address] | | | [place] [address] | + + + | Home Phone | | + + + | Preferred Language | Unknown | + + + | Marital Status | | + + + | Adventist Affiliation | Unknown | + + + | Race | Unknown | + + + | Ethnic Group | Unknown | + + + Author + + + | Author | [facility] | | | and Tomasana | + + + | Organization | [facility] | | | and Tomasana [...] [place] | | | | | [address] | | + + + + + Care Team Providers + +------+ + | Care Manager Pacu Name | Role | Phone | + +------+ + | Jolene Bear | PCP | | + +------+ + Encounter Details +--------+ + + + + | Date | Type | Department | Care Team | Description | +--------+ + + + + | 12/15/ | Hospital | [facility] | Dario Koehler, | Chronic right-sided | | 2017 | Encounter | MED CTR XRAY [address] | DO [address] | back pain, | | | | [address] | [address] [place] | unspecified back | | | | [place] [address] | [address] | location | | | | [phone] | | | +--------+ + + + [...] + | [address] | [address] | [place] | [phone] | | [facility] | | [address] | | | - IMAGING | | | | + + + + + documented in this encounter Visit Diagnoses + + | Diagnosis | + + | Chronic right-sided back pain, unspecified back location | + + documented in this encounter"
--- OUTSIDE RECORDS SUMMARY | ~2020-04-06 | XMS | Encounter Summary ---
Demographics + + + | Address | [address] | | | [place] [address] | + + + | Home Phone | | + + + | Preferred Language | Unknown | + + + | Marital Status | | + + + | Sikhism Affiliation | Unknown | + + + | Race | Unknown | + + + | Ethnic Group | Unknown | + + + Author + + + | Author | [facility] | | | and Tomasana | + + + | Organization | [facility] [...] [place] | | | | | [address] | | + + + + + Care Team Providers + +------+ + | Care Director Of Entertainment Name | Role | Phone | + +------+ + | Jolene Bear | PCP | | + +------+ + Reason for Visit + + + | Reason | Comments | + + + | Pre-op Exam | 02/13/2017 | + + + Encounter Details +--------+---------+ + + + | Date | Type | Department | Care Team | Description | +--------+---------+ + + + | 02/01/ | Office | [facility] [place] | Yahir Santana | Lumbar foraminal | | 2017 | Visit | NEUROSURGERY [address] | D, PA-C [address] | stenosis (Primary | | | | [address] | [address] | Dx); Lumbar | | | | [place], [place] | [place], [place] | radiculopathy; | | | | [address] | [address] | Lumbar disc | | | | [phone] | | herniation; Lumbar | | | | | | spinal stenosis | +--------+---------+ + + + Social History [...] + + + | Respiratory Rate | - | - | | + [...] in this encounter Patient Instructions Patient Instructions Yahri Santana PA-C - 02/01/2017 10:52 AM PDTPlease remember n ot to take any anti-inflammatories within 7 days of surgery. This includes ibuprofen, Motri n, Advil, aspirin, naproxen, and Aleve. You may have a small glass of water on the morning of surgery to take your normal morning medications. Otherwise, nothing to eat or drink afte r midnight. If you have any change in your health status, please call and let us know. Last ly, If you have any questions, please feel free to give our office a call. Otherwise, we wi ll see you on the morning of surgery. documented in this encounter Progress Notes Yahir Santana PA-C - 02/02/2017 11:21 AM PDTFormatting of this note might be diffe rent from the original. Yahir Santana PA-C [address] [facility] [address] [place], [place] [id number] FAX: NEUROSURGERY HISTORY AND PHYSICAL EXAMINATION CHIEF COMPLAINT: Chief Complaint Patient presents with Pre-op Exam 02/13/2017 HISTORY OF PRESENT ILLNESS: The patient is in office for his preop appointment. He is sche duled for a L4-5 XLIF on 02/13. He states that his symptoms have been the same since his prev ious appointment. He complains of back pain and left leg pain. He has had no interval change s in the severity or character of his symptoms since his last visit. He denies any shortn ess of breath or chest pain. He denies any fever or chills.He has no open sores on his body and has not had any antibiotics recently. The PCP has seen him and they have cleared him fo r surgery. He rates the pain as moderate. The [...] Gout Bipolar 1 disorder (HCC) Sleep apnea uses CPAP Otitis media ADHD (attention deficit hyperactivity disorder) Hyperlipidemia Neuropathy (HCC) hands and feet Chronic pain Pain in limb Difficult intubation "had trouble with intubation for gallbladder surgery; couldn't get the breathing tube in before I started obstructing" PAST SURGICAL HISTORY: Past Surgical History Procedure Laterality Date Tonsillectomy Cholecystectomy CURRENT MEDICATIONS: Current Outpatient Prescriptions Medication Sig Dispense Refill acetaminophen (TYLENOL) 500 mg tablet Take 500 mg by mouth every 6 hours as needed for Pain. buprenorphine (SUBUTEX) [address] 8 mg under the tongue 3 times daily. gabapentin (NEURONTIN) 300 mg capsule Take 300 mg by mouth 3 times daily as needed. ibuprofen (ADVIL,MOTRIN) 800 MG tablet Take 800 mg by mouth every 6 hours as needed for Pain. tiZANidine (ZANAFLEX) 2 MG tablet Take 2 mg by mouth every 8 hours as needed. No current facility-administered medications for this visit. ALLERGIES: Allergies Allergen Reactions Hydrocodone Hives and Shortness Of Breath Naloxone Other (See Comments) Severe headache Latex Rash Metoprolol Itching and Rash Oxycodone Itching SOCIAL HISTORY: The patient reports that he has been smoking Cigarettes. He started smoking about 4 years ago. He has a 3 pack-year smoking history. He quit smokeless tobacco use about 3 years ago. He reports that he does not drink alcohol or use illicit drugs. FAMILY HISTORY: Family History [...] no rheumatoid arthritis. PHYSICAL EXAMINATION: Blood pressure 126/91, pulse 112, height 1.905 m (6' 3"), weight 152.59 kg (336 lb 6.4 oz). Body mass index is 42.05 kg/(m^2). GENERAL: Dario Majano is in no [...] has no apparent deficits with short or ferry terminal supervisor memory. CRANIAL NERVES: II: Acuity is intact. [...] Intrinsics 5 5 Ulnar Intrinsics 5 5 Plastics Nurse Strength 5 5 Hip Flexion 5 4* [...] ASSESSMENT: NEUROSURGICAL DIAGNOSES: Encounter Diagnoses Name Primary? Lumbar foraminal stenosis Yes Lumbar radiculopathy Lumbar disc herniation Lumbar spinal stenosis GENERAL DIAGNOSES: Past Medical History Diagnosis Date Anxiety GERD (gastroesophageal reflux disease) Depression Hypertension Gout Bipolar 1 disorder (HCC) Sleep apnea uses CPAP Otitis media ADHD (attention deficit hyperactivity disorder) Hyperlipidemia Neuropathy (HCC) hands and feet Chronic pain Pain in limb Difficult intubation "had trouble with intubation for gallbladder surgery; couldn't get the breathing tube in before I started obstructing" PLAN: Today we discussed the upcoming surgery and I answered any questions he had regarding the procedure and the recovery. He is nervous going into this surgery, but knows that he wi ll feel better afterward. The patient has spondylosis and severe stenosis L4-5. This is likely contributing to his ba ck pain, leg pain, leg weakness, and difficulty [...] optimizatio n prior to presenting for surgery. He would like to proceed with his scheduled L4-5 fusion on 02/13. ELECTRONICALLY SIGNED BY: Yahir Santana PA-C, 02/02/2017 11:22 Belinda Moy RN - 02/01/2017 4:30 PM PDTPatient in office for pre op appointment. Patient advised at this time to stop: Ibuprofen (7 days prior and 90 days after). Patient verbalized loretta rangel. All questions answered at this time. documented in this en counter Plan of Treatment Not on filedocumented as of this encounter Visit Diagnoses + + | Diagnosis | + + | Lumbar foraminal stenosis - Primary Spinal stenosis, lumbar region, without | | neurogenic claudication | + + | Lumbar radiculopathy Thoracic or lumbosacral neuritis or radiculitis, unspecified | + + | Lumbar disc herniation Displacement of lumbar intervertebral disc without myelopathy | + + | Lumbar spinal stenosis Spinal stenosis, lumbar region, without neurogenic | | claudication | + + documented in this encounter
--- OUTSIDE RECORDS SUMMARY | ~2020-04-06 | XMS | Encounter Summary ---
Demographics + + + | Address | [address] | | | [place] [address] | + + + | Home Phone | | + + + | Preferred Language | Unknown | + + + | Marital Status | | + + + | Samaritan Affiliation | Unknown | + + + | Race | Unknown | + + + | Ethnic Group | Unknown | + + + Author + + + | Author | [facility] | | | and Tomasana | + + + | Organization | [facility] | | | and [...] [place] | | | | | [address] | | + + + + + Care Team Providers + +------+ + | Care Marine Equipment Design Engineer Name | Role | Phone | + +------+ + | Jolene Bear | PCP | | + +------+ + Reason for Visit Evaluate & Treat (Routine) +--------+--------+ + + + + | Status | Reason | Specialty | Diagnoses / | Referred By | Referred To | | | | | Procedures | Contact | Contact | +--------+--------+ + + + + | Closed | | Audiology | Diagnoses | Skylar, | Arturo, | | | | | Audio and | Sergio Espinoza MD | [place], [place] | | | | | Tymps/Johnso | [address] | CCC-A [address] | | | | | n/[address] | [address] | [address] | | | | | @ [place] | [place], | [address] [place] | | | | | Fax report | [place] [address] | [facility], [place] | | | | | Procedures | Phone: | [phone] Phone: | | | | | OFFICE VISIT | [phone] | [phone] | | | | | REGULAR | Fax: | Fax: | | | | | | [phone] | [phone] | +--------+--------+ + + + + Encounter Details +--------+---------+ + + + | Date | Type | Department | Care Team | Description | +--------+---------+ + + + | 03/27/ | Office | [facility] [place] | [place] | Encounter for | | 2017 | Visit | AUDIOLOGY AND | CCC-A [address] | hearing test | | | | [facility] | [address] [place] | (Primary Dx) | | | | [address] | [place] [address] | | | | | [address] [place] | [phone] | | | | | [place] [address] | | | | | | [phone] | | | +--------+---------+ + + + [...] + + documented as of this encounter Progress Notes Alma Morris, CCC-A - 03/27/2017 11:34 AM PDTReferring Provider: Sergio Cheng M.D. Mr. Majano tells me that his left ear hurts and that he has a sinus infection. Results of Hearing Test: Right ear--Pure tone air and bone conduction testing showed 15-25d B threshold at 250 Hz through 8 KHz. Left ear --Pure tone air and bone conduction testing showed 15-25dB threshold at 250 Hz through 8 KHz. Speech Recognition Thresholds were 15dB in the right ear and 15dB in the left ear. Speech Discrimination Scores were 100% in right ear and 100% in the left ear. Tympanometry showed normal type A tracings in both ears Impression and Recommendation: Hearing sensitivity is within normal limits in both ears. Follow-up care with Dr. Cheng, ENT. Thank you. documented in thi s encounter Plan of Treatment Not on filedocumented as of this encounter Procedures + +--------+ + + + | Procedure Name | Priori | Date/Time | Associated Diagnosis | Comments | | | ty | | | | + +--------+ + + + | DIAGNOSTIC REPORT - | | 03/27/2017 | | Results for this | | EXTERNAL SCAN | | 12:00 AM | | procedure are in the | | | | PDT | | results section. | + +--------+ + + + documented in this encounter Results DIAGNOSTIC REPORT - EXTERNAL SCAN (03/27/2017 12:00 AM PDT) + + + | Narrative | Performed At | + + + | Ordered by an | | | unspecified provider. | | + + + documented in this encounter Visit Diagnoses + + | Diagnosis | + + | Encounter for hearing test - Primary Other examination of ears and hearing | + + documented in this encounter"
--- OUTSIDE RECORDS SUMMARY | ~2020-04-06 | XMS | Encounter Summary ---
Demographics + + + | Address | [address] | | | [place] [address] | + + + | Home Phone | | + + + | Preferred Language | Unknown | + + + | Marital Status | | + + + | Gnosticist Affiliation | Unknown | + + + | Race | Unknown | + + + | Ethnic Group | Unknown | + + + Author + + + | Author | [facility] | | | and Tomasana | + + + | Organization | [facility] | | | and Tomasana | [...] [place] | | | | | [address] | | + + + + + Care Team Providers + +------+ + | Care Superintendent Car Construction Name | Role | Phone | + +------+ + | Jolene Bear | PCP | | + +------+ + Encounter Details +--------+ + + + + | Date | Type | Department | Care Team | Description | +--------+ + + + + | 01/09/ | Orders Only | [facility] [place] | Dario Koehler, | Hyperlipidemia, | | 2017 | | NEUROSURGERY [address] | DO [address] | unspecified | | | | [address] | [address] [place], [place] | hyperlipidemia type | | | | [place], [place] | [address] | (Primary Dx); | | | | [address] | | Chronic low back | | | | [phone] | | pain, unspecified | | | [...] on filedocumented as of this encounter Results CBC with Differential (02/01/2017 2:08 PM PDT) + + + + + + | Component | Value | Ref Range | Performed | Pathologist | | | | | At | Signature | + + + + + + | WBC | 8.1 | 4.0 - 11.0 K/uL | [facility] | | | | | | [facility] | | | | | | [facility] | | | | | [facility] - | | | | | | LABORATORY | | + + + + + + | RBC | 4.54 | 4.30 - 5.70 | [facility] | | | | | M/uL | [facility] | | | | [...] | | Monocytes | | K/uL | [facility] | | | | | | MEDICAL | | | | | | CENTER - | | | | | | LABORATORY | | + + + + + + | Absolute | 0.30 | 0.00 - 0.40 | [facility] | | | Eosinophils | | K/uL | [facility] | [...] | [address] | [place] | [phone] | | [facility] | | [address] | | | - LABORATORY | | [...] | | | | SIMON GERMAN MD ([id number]) | | | | | | on [...] + | Diagnosis | + + | Hyperlipidemia, unspecified hyperlipidemia type - Primary | + + | Chronic low back pain, unspecified back pain laterality, with sciatica presence | | unspecified | + + documented in this encounter"
--- OUTSIDE RECORDS SUMMARY | ~2020-04-06 | XMS | Encounter Summary ---
Demographics + + + | Address | [address] | | | [place] [address] | + + + | Home Phone | | + + + | Preferred Language | Unknown | + + + | Marital Status | | + + + | Rastafarian Affiliation | Unknown | + + + | Race | Unknown | + + + | Ethnic Group | Unknown | + + + Author + + + | Author | [facility] | | | and Tomasana | + + + | Organization | [facility] | | | and Tomasana [...] [place] | | | | | [address] | | + + + + + Care Team Providers + +------+ + | Care Finishing Pan Operator Name | Role | Phone | + +------+ + | Jolene Bear | PCP | | + +------+ + Encounter Details +--------+ + + + + | Date | Type | Department | Care Team | Description | +--------+ + + + + | 01/24/ | Orders Only | [facility] [place] | Dario Koehler, | Osteoarthritis of | | 2017 | | NEUROSURGERY [address] | DO [address] | spine with | | | | [address] | [address] [place], [place] | radiculopathy, | | | | [place], [place] | [address] | lumbar region | | | | [address] | | (Primary Dx); | | | | [phone] | | Stenosis, spinal, | | | | | | lumbar; Lumbar | | | | | | stenosis; Chronic | | | | | | midline low back | | | | | | pain with left-sided | | | | | | sciatica; Left leg | | | | | | weakness | +--------+ + + + + Social [...] of this encounter Plan of Treatment + +---------+--------+ + + | Name | Type | Priori | Associated Diagnoses | Order Schedule | | | | ty | | | + +---------+--------+ + + | XR Lumbar Spine 2 or | Imaging | Routin | Osteoarthritis of | Expected: | | 3 Vw | | e | spine with | 01/24/2017, Expires: | | | | | radiculopathy, | 01/24/2018 | | | | | lumbar region | | | | | | Lumbar stenosis | | | | | | Chronic midline low | | | | | | back pain with | | | | | | left-sided sciatica | | | | | | Left leg weakness | | + +---------+--------+ + + | XR Lumbar Spine 2 or | Imaging | Routin | Osteoarthritis of | Expected: | | 3 Vw | | e | spine with | 01/24/2017, Expires: | | | | | radiculopathy, | 01/24/2018 | | | | | lumbar region | | | | | | Lumbar stenosis | | | | | | Chronic midline low | | | | | | back pain with | | | | | | left-sided sciatica | | | | | | Left leg weakness | | + +---------+--------+ + + documented as of this encounter Visit Diagnoses + + | Diagnosis | + + | Osteoarthritis of spine with radiculopathy, lumbar region - Primary | + + | Stenosis, spinal, lumbar Spinal stenosis, lumbar region, without neurogenic | | claudication | + + | Lumbar stenosis Spinal stenosis, lumbar region, without neurogenic claudication | + + | Chronic midline low back pain with left-sided sciatica | + + | Left leg weakness Other musculoskeletal symptoms referable to limbs | + + documented in this encounter"
--- OUTSIDE RECORDS SUMMARY | ~2020-04-06 | XMS | Encounter Summary ---
Demographics + + + | Address | [address] | | | [place] [address] | + + + | Home Phone | | + + + | Preferred Language | Unknown | + + + | Marital Status | | + + + | Anabaptist Affiliation | Unknown | + + + | Race | Unknown | + + + | Ethnic Group | Unknown | + + + Author + + + | Author | [facility] | | | and Tomasana | + + + | Organization | [facility] | | | and [...] [place] | | | | | [address] | | + + + + + Care Team Providers + +------+ + | Care Portrait Artist Name | Role | Phone | + [...] | | | | | wter | Alma | [address] | | | | | Procedures | Health and | [employer], | | | | | NEW PATIENT | Service | [place] [address] | | | | | | | Phone: | | | | | | | [phone] | | | | | | | Fax: | | | | | | | [phone] | +--------+--------+ + + + + Encounter Details +--------+---------+ + + + | Date | Type | Department | Care Team | Description | +--------+---------+ + + + | 05/07/ | Office | [facility] | Wojciech Clark MD | Other chronic otitis | | 2015 | Visit | OTOLARYNGOLOGY [address] | [address] | externa (Primary | | | | [address] | [address] [place], | Dx) | | | | [place] | [place] [address] | | | | | [address] | [phone] | | | | | [phone] | | | +--------+---------+ + + + [...] MD - 05/07/2015 3:29 PM PDT [facility] OTOL[facility]Y [address] [facility] [address] OFFICE NOTE WOJCIECH CLARK MD Patient: DARIO MAJANO Admitting: MR #: [id number] LOC: PT TYPE: Adm Date: 05/07/2015 : [...] time. He was given a prescription of [place] 7.5 mg to help with the pain , but also advised to use some anti-inflammatory such as Motrin or Aleve. WOJCIECH CLARK MD Dictated by WOJCIECH CLARK MD 05/07/2015 15:29:06 Transcribed on 05/08/2015 06:40:51 by dl job# [id number] Confirmation #: [id number] signed by Wojciech Clark MD at 05/08/2015 7:57 AM PDT Wojciech Clark MD - 05/07/2015 3:26 PM PDTSee dictation # [id number] signed by Wojciech Clark MD at 05/07/2015 3:29 PM PDTdocumented in th is encounter Plan of Treatment Not on filedocumented as of this encounter Visit Diagnoses + + | Diagnosis | + + | Other chronic otitis externa - Primary | + + documented in this encounter
--- OUTSIDE RECORDS SUMMARY | ~2020-04-06 | XMS | Encounter Summary ---
Demographics + + + | Address | [address] | | | [place] [address] | + + + | Home Phone | | + + + | Preferred Language | Unknown | + + + | Marital Status | | + + + | Sabianist Affiliation | Unknown | + + + | Race | Unknown | + + + | Ethnic Group | Unknown | + + + Author + + + | Author | [facility] | | | and Tomasana | + + + | Organization | [facility] | | | and [...] [place] | | | | | [address] | | + + + + + Care Team Providers + +------+ + | Care Clutch Inspector Name | Role | Phone | + [...] [address] | [address] [place], [place] | unspecified back | | | | [place], [place] | [address] | location (Primary | | | | [address] | | Dx) | | | | [phone] | | | +--------+ + + + [...] [address] | [place] | [phone] | | [facility] | | [address] | | | - IMAGING | | | | + + + + + documented in this encounter Visit Diagnoses + + | Diagnosis | + + | Chronic right-sided back pain, unspecified back location - Primary | + + documented in this encounter"
--- OUTSIDE RECORDS SUMMARY | ~2020-04-06 | XMS | Encounter Summary ---
Demographics + + + | Address | [address] | | | [place] [address] | + + + | Home Phone | | + + + | Preferred Language | Unknown | + + + | Marital Status | | + + + | Christian Affiliation | Unknown | + + + | Race | Unknown | + + + | Ethnic Group | Unknown | + + + Author + + + | Author | [facility] | | | and Tomasana | + + + | Organization | [facility] | | | and [...] [place] | | | | | [address] | | + + + + + Care Team Providers + +------+ + | Care Childcare Administrator Name | Role | Phone | + +------+ + | Jolene Bear | PCP | | + +------+ + Reason for Visit + + + | Reason | Comments | + + + | Surgery Appointment | Scheduling | + + + Encounter Details +--------+ + + + + | Date | Type | Department | Care Team | Description | +--------+ + + + + | 01/02/ | Telephone | [facility] | Dario Koehler, | Surgery Appointment | | 2017 | | [address]UR[address]UR[address]ERY [address] | DO [address] | (Scheduling ) | | | | [address] | [address] [place], [place] | | | | | [place], [place] | [id number] | | | | | [address] | | | | | | [phone] | | | +--------+ + + + [...]
--- OUTSIDE RECORDS SUMMARY | ~2020-04-06 | XMS | Clinical Summary ---
Demographics + + + | Address | [address] | | | [place] [address] | + + + | Home Phone | | + + + | Preferred Language | Unknown | + + + | Marital Status | | + + + | Judaism Affiliation | 1013 | + + + | Race | Unknown | + + + | Ethnic Group | Unknown | + + + Author + + + | Author | [facility] (Historical as of | | | 07-06-19) | + + + | Organization | [facility] [employer] (Historical as of | | | 07-06-19) | + + + | Address | Unknown | + + + | Phone | Unavailable | + + + Support + + + + + | Name | Relationship | Address | Phone | + + + + + | Talia Majano | ECON | [address] | | | | | [place] | | | | | [address] | | + + + + + Care Team Providers + +------+ + | Care Oil Burner Installer Name | Role | Phone | + +------+ + | Dr. Bev | PP | Unavailable | + +------+ + Allergies + + + + + + | Active Allergy | Reactions | Severity | Noted | Comments | | | | | Date | | + + + + + + | Latex | Rash | Medium | 04/25/20 | | | | | | 12 | | + + + + + + | Metoprolol | Rash | Medium | 06/06/20 | | | | | | 12 | | + + + + + + Current Medications + + +-------+---------+------+------+-------+ | Prescription | Sig. | Disp. | Refills | Star | End | Statu | | | | | | t | Date | s | | | | | | Date | | | + + +-------+---------+------+------+-------+ | lisinopril | Take 20 mg by mouth | | | | | Activ | | (PRINIVIL,ZESTRIL) | daily. | | | | | e | | 20 MG tablet | | | | | | | + + +-------+---------+------+------+-------+ | sertraline | Take 100 mg by mouth | | | | | Activ | | (ZOLOFT) 100 MG | daily. | | | | | e | | tablet | | | | | | | + + +-------+---------+------+------+-------+ | gabapentin | Take 100 mg by mouth | | | | | Activ | | (NEURONTIN) 100 MG | 3 (three) times | | | | | e | | capsule | daily. | | | | | | + + +-------+---------+------+------+-------+ | omeprazole | Take 20 mg by mouth | | | | | Activ | | (PRILOSEC) 20 MG | daily. | | | | | e | | capsule | | | | | | | + + +-------+---------+------+------+-------+ | testosterone | Place 1 patch onto | | | | | Activ | | (ANDRODERM) 2.5 | the skin daily. | | | | | e | | MG/24HR | | | | | | | + + +-------+---------+------+------+-------+ Active Problems Not on file Social History + +-------+ +--------+------+ | Tobacco Use | Types | Packs/Day | Years | Date | | | | | Used | | + +-------+ +--------+------+ | Never Smoker | | | | | + +-------+ +--------+------+ + + +---------+ + | Alcohol Use | Drinks/We | oz/Week | Comments | | | ek | | | + + +---------+ + | Yes | | | stoopped drinking March 28 - prior to that | | | | | drank beer and liquor in a week drank 1/2 | | | | | case/week | + + +---------+ + + + + | Sex Assigned at | Date Recorded | | | | + + + | Not on file | | + + + Last Filed Vital Signs + + + + | Vital Sign | Reading | Time Taken | + + + + | Blood Pressure | 165/78 | 04/25/2012 10:21 PM PDT | + + + + | Pulse | 102 | 04/25/2012 10:21 PM PDT | + + + + | Temperature | 36.6 C (97.9 F) | 04/25/2012 5:56 PM PDT | + + + + | Respiratory Rate | 16 | 04/25/2012 10:21 PM PDT | + + + + | Oxygen Saturation | 97% | 04/25/2012 10:21 PM PDT | + + + + | Inhaled Oxygen | - | - | | Concentration | | | + + + + | Weight | 161 kg (355 lb) | 04/25/2012 5:56 PM PDT | + + + + | Height | 190.5 cm (6' 3") | 04/25/2012 5:56 PM PDT | + + + + | Body Mass Index | 44.37 | 04/25/2012 5:56 PM PDT | + + + + Plan of Treatment Not on file Results Not on filefrom Last 3 Months
--- OUTSIDE RECORDS SUMMARY | ~2020-04-06 | XMS | Encounter Summary ---
Demographics + + + | Address | [address] | | | [place] [address] | + + + | Home Phone | | + + + | Preferred Language | Unknown | + + + | Marital Status | | + + + | Hindu Affiliation | Unknown | + + + | Race | Unknown | + + + | Ethnic Group | Unknown | + + + Author + + + | Author | [facility] | | | and Tmoasana | + + + | Organization | [facility] | | | and Tomasana [...] [place] | | | | | [address] | | + + + + + Care Team Providers + +------+ + | Care Freezer Tunnel Operator Name | Role | Phone | + +------+ + | Provider Not, In System | PCP | Unavailable | + +------+ + Reason for Visit +--------+ + | Reason | Comments | +--------+ + | Other | pain medication | +--------+ + Encounter Details +--------+ + + + + | Date | Type | Department | Care Team | Description | +--------+ + + + + | 05/11/ | Telephone | [facility] [place] | Wojciech Bowie MD | Other (pain | | 2015 | | OTOLARYNGOLOGY [address] | [address] [place] | medication) | | | | [address] | [address] [place], | | | | | [place], [place] | [place] [address] | | | | | [address] | [phone] | | | | | [phone] | | | +--------+ + + + [...]
--- OUTSIDE RECORDS SUMMARY | ~2020-04-06 | XMS | Encounter Summary ---
Demographics + + + | Address | [address] | | | [place] [address] | + + + | Home Phone | | + + + | Preferred Language | Unknown | + + + | Marital Status | | + + + | Denominational Affiliation | Unknown | + + + | Race | Unknown | + + + | Ethnic Group | Unknown | + + + Author + + + | Author | [facility] | | | and Tomasana | + + + | Organization | [facility] | | | and [...] [place] | | | | | [address] | | + + + + + Care Team Providers + +------+ + | Care Freelance Art Director Name | Role | Phone | + +------+ + | Jolene Bear | PCP | | + +------+ + Reason for Visit + + + | Reason | Comments | + + + | Procedure | | + + + Encounter Details +--------+ + + + + | Date | Type | Department | Care Team | Description | +--------+ + + + + | 02/28/ | Telephone | [facility] [place] | Dario Koehler, | Procedure | | 2017 | | NEUROSURGERY [address] | DO [address] | | | | | [address] | [address] [place], [place] | | | | | [place], [place] | [address] | | | | | [address] | | | | | | [phone] | | | +--------+ + + + [...]
--- OUTSIDE RECORDS SUMMARY | ~2020-04-06 | XMS | Encounter Summary ---
Demographics + + + | Address | [address] | | | [place] [address] | + + + | Home Phone | | + + + | Preferred Language | Unknown | + + + | Marital Status | | + + + | Methodist Affiliation | Unknown | + + + | Race | Unknown | + + + | Ethnic Group | Unknown | + + + Author + + + | Author | [facility] | | | and Tomasana | + + + | Organization | [facility] [...] [place] | | | | | [address] | | + + + + + Care Team Providers + +------+ + | Care Furniture Manager Name | Role | Phone | [...] + + | 02/01/ | Office | [facility] [place] | Yahri Santana | 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 Yahir Santana PA-C [address] [facility], [address] [place], [place] [id number] FAX: NEUROSURGERY HISTORY AND PHYSICAL EXAMINATION CHIEF [...] has no apparent deficits with short or terminal block assembler memory. CRANIAL NERVES: II: Acuity is intact. [...] Intrinsics 5 5 Ulnar Intrinsics 5 5 Senior Search Marketing Analyst Strength 5 5 Hip Flexion 5 4* [...]
--- OUTSIDE RECORDS SUMMARY | ~2020-04-06 | XMS | Encounter Summary ---
Demographics + + + | Address | [address] | | | [place] [address] | + + + | Home Phone | | + + + | Preferred Language | Unknown | + + + | Marital Status | | + + + | Buddhist Affiliation | Unknown | + + + | Race | Unknown | + + + | Ethnic Group | Unknown | + + + Author + + + | Author | [facility] | | | and Tomasana | + + + | Organization | [facility] | | | and Tomasana | [...] [place] | | | | | [address] | | + + + + + Care Team Providers + +------+ + | Care Diet Counselor Name | Role | Phone | + +------+ + | Provider Not, In System | PCP | Unavailable | + +------+ + Encounter Details +--------+ + + + + | Date | Type | Department | Care Team | Description | +--------+ + + + + | 03/30/ | [facility] | FELICIA STEELE | Celine Walton | | | 2016 | Encounter | [facility] | JANETH Meeks [address] | | | | | CENTER [address] [place], | | | | | [place] | [place] [address] | | | | | [address] | [phone] | | | | | [phone] | | | +--------+ + + + [...] at Time of Discharge + + + +---------+ + + | Medication | Sig | Dispensed | Refills | Start | End Date | | | | | | Date | | + + + +---------+ + + | atoMOXetine | Take 100 mg by mouth | | 0 | | | | (STRATTERA) 100 MG | Daily. | | | | 6 | | capsule | | | | | | + + + +---------+ + + | hydrOXYzine | Take 1-2 capsules by | 20 | 0 | 04/26/20 | | | pamoate (VISTARIL) | mouth every 6 hours | capsule | | 13 | 6 | | 25 mg | as needed for | | | | | | capsuleIndications: | Anxiety. | | | | | | Anxiety | | | | | | + + + +---------+ + + | lamotrigine | Take 150 mg by mouth | | 0 | | | | (LAMICTAL) 150 MG | Daily. | | | | 6 | | tablet | | | | | | + + + +---------+ + + | | Take 2 tablets by | 90 | 3 | 03/28/20 | | | lisinopril-hydrochlo | mouth Daily. | tablet | | 13 | 6 | | rothiazide | | | | | | | (PRINZIDE,ZESTORETIC | | | | | | | ) 20-12.5 MG per | | | | | | | tabletIndications: | | | | | | | Hypertension | | | | | | + + + +---------+ + + | nabumetone | Take 1 tablet by | 60 | 2 | 04/26/20 | | | (RELAFEN) 750 mg | mouth 2 times daily. | tablet | | 13 | 6 | | tablet | | | | | | + + + +---------+ + + | omeprazole | Take 20 mg by mouth | | 0 | | | | (PRILOSEC) 20 mg | every morning | | | | 6 | | capsule | (before breakfast). | | | | | + + + +---------+ + + | oxyCODONE | Take 15 mg by mouth | | 0 | | | | (ROXICODONE) 15 mg | every 4 hours as | | | | 6 | | immediate release | needed for Pain. | | | | | | tablet | | | | | | + + + +---------+ + + | testosterone | Inject into the | | 0 | | | | cypionate | muscle every 14 | | | | 6 | | (DEPO-TESTOSTERONE) | days. | | | | | | 200 mg/mL injection | | | | | | + + + +---------+ + + documented as of this encounter Plan of Treatment Not on filedocumented as of this encounter Procedures + +--------+ + + + | Procedure Name | Priori | Date/Time | Associated Diagnosis | Comments | | | ty | | | | + +--------+ + + + | URINALYSIS WITH | STAT | 03/30/2016 | | Results for this | | MICROSCOPIC WITH | | 1:47 PM | | procedure are in the | | CULTURE IF INDICATED | | PDT | | results section. | + +--------+ + + + | CT LUMBAR SPINE WO | Routin | 03/30/2016 | | Results for this | | CONTRAST | e | 12:27 PM | | procedure are in the | | | | PDT | | results section. | + +--------+ + + + documented in this encounter Results Urinalysis with Microscopic with Culture if Indicated (03/30/2016 1:47 PM PDT) + + + + + + | Component | Value | Ref Range | Performed | Pathologist | | | | | At | Signature | + + + + + + | Source | Clean Catch / VOID | | EXTERNAL | | | | | | LAB | | + + + + + + | Clarity | CLEAR | CLEAR | EXTERNAL | | | | | | LAB | | + + + + + + | Color, | YELLOW | YELLOW | EXTERNAL | | | Urine | | | LAB | | + + + + + + | Specific | 1.025 | 1.005 - 1.030 | EXTERNAL | | | [place], | | | LAB | | | Urine | | | | | + + + + + + | pH, Urine | 6 | 5.0 - 7.0 pH | EXTERNAL | | | | | | LAB | | + + + + + + | Leukocyte | 25 | NEGATIVE /uL | EXTERNAL | | | Esterase, | | | LAB | | | Urine | | | | | + + + + + + | Nitrite, | NEGATIVE | NEGATIVE | EXTERNAL | | | Urine | | | LAB | | + + + + + + | Protein, | NEGATIVE | NEGATIVE mg/dL | EXTERNAL | | | Urine | | | LAB | | + + + + + + | Glucose, | NORMAL | NORMAL mg/dL | EXTERNAL | | | Urine | | | LAB | | + + + + + + | Reducing | NOT REQUIRED | NEGATIVE | EXTERNAL | | | Substance, | | | LAB | | | UA, POC | | | | | + + + + + + | Ketones, | NEGATIVE | NEGATIVE mg/dL | EXTERNAL | | | Urine | | | LAB | | + + + + + + | Urobilinoge | NORMAL | NORMAL mg/dL | EXTERNAL | | | n, Urine | | | LAB | | + + + + + + | Bilirubin, | NEGATIVE | NEGATIVE mg/dL | EXTERNAL | | | Urine | | | LAB | | + + + + + + | Blood, | NEGATIVE | NEGATIVE /uL | EXTERNAL | | | Urine | | | LAB | | + + + + + + | White Blood | 3-5 | </= 5 /HPF | EXTERNAL | | | Cells, | | | LAB | | | Urine | | | | | + + + + + + | RBC COUNT | NONE SEEN | </= 5 PER HPF | EXTERNAL | | | | | | LAB | | + + + + + + | Bacteria, | NONE SEEN | NONE SEEN /HPF | EXTERNAL | | | UA | | | LAB | | + + + + + + | Culture | NO | | EXTERNAL | | | Indicated | | | LAB | | + + + + + + | Squamous | NONE SEEN | /LPF | EXTERNAL | | | Epithelial | | | LAB | | | Cells, | | | | | | Urine | | | | | + + + + + + | Mucus, | FEW | NONE SEEN /HPF | EXTERNAL | | | Urine | | | LAB | | + + + + + + | Calcium | FEW | NONE SEEN /HPF | EXTERNAL | | | Oxalate | | | LAB | | | Crystals, | | | | | | Urine | | | | | + + + + + + + + | Specimen | + + | | + + + +---------+ + + | Performing | Address | City/State/Zipcode | Phone Number | | Organization | | | | + +---------+ + + | EXTERNAL LAB | | | | + +---------+ + + CT Lumbar Spine wo Contrast (03/30/2016 12:27 PM PDT) + + | Specimen | + + | | + + + + + | Narrative | Performed At | + + + | ORIGINAL CT LUMBAR SPINE WITHOUT CONTRAST: | | | INDICATION: Low back pain, severe. Previous L4-5 injury. New | | | injury recently. Lifting injury 1 month ago. Increased pain last | | | 3-4 days. COMPARISON: None. TECHNIQUE: Axial noncontrast | | | images are obtained through the lumbar spine. DLP is 950.40 mGy-cm. | | | Call report to Celine Walton is made at 1530 hours. REPORT: | | | The vertebral body heights and intervertebral disk spaces are | | | maintained. No dislocation, or subluxation is seen. No lytic or | | | blastic bone lesions are seen. The visualized paraspinal soft | | | tissues appear within normal limits. Sacroiliac joints demonstrate | | | mild symmetric sclerosis. L1-2: Within normal limits. L2-3: | | | Within normal limits. L3-4: Minimal apparent bulge. No | | | canal or foraminal narrowing is seen. L4-5: Mild posterior bulge | | | apparent without obvious canal or foraminal narrowing. L5-S1: | | | At the medial margin of the right L5 facet a lucency is noted with | | | an approximate adjacent 4-mm bony density demonstrating sclerotic | | | margins. No canal or foraminal narrowing is seen. IMPRESSION: | | | 1. No definite acute finding is identified. At the right L5 facet a | | | 4-mm bone density is noted adjacent to the medial margin of the facet. | | | This finding could relate to mild degenerative change. This would | | | be an atypical location for fracture; however, potentially an age | | | indeterminate fracture could result in similar appearance. 2. Disk | | | bulge L4-5. MRI may provide additional information. D: | | | 03/30/16 Read By: ROSENDO YEBOAH MD | | | Released By: ROSENDO YEBOAH MD Date: 03/31/2016 07:48 | | + + + + + | Procedure Note | + + | Mina, Rad Results In - 09/27/2017 10:[address] LUMBAR SPINE | | WITHOUT CONTRAST: INDICATION:Low back pain, severe. Previous L4-5 injury. New injury | | recently. Lifting injury 1 month ago. Increased pain last 3-4 days. COMPARISON:None. | | TECHNIQUE:Axial noncontrast images are obtained through the lumbar spine. DLP is 950.40 | | mGy-cm. Call report to Celine Walton is made at 1530 hours. REPORT:The vertebral body | | heights and intervertebral disk spaces are maintained. No dislocation, or subluxation | | is seen. No lytic or blastic bone lesions are seen. The visualized paraspinal soft | | tissues appear within normal limits. Sacroiliac joints demonstrate mild symmetric | | sclerosis. L1-2: Within normal limits. L2-3: Within normal limits. L3-4: Minimal | | apparent bulge. No canal or foraminal narrowing is seen. L4-5: Mild posterior bulge | | apparent without obvious canal or foraminal narrowing. L5-S1: At the medial margin of | | the right L5 facet a lucency is noted with an approximate adjacent 4-mm bony density | | demonstrating sclerotic margins. No canal or foraminal narrowing is seen. IMPRESSION:1. | | No definite acute finding is identified. At the right L5 facet a 4-mm bone density is | | noted adjacent to the medial margin of the facet. This finding could relate to mild | | degenerative change. This would be an atypical location for fracture; however, | | potentially an age indeterminate fracture could result in similar appearance.2. Disk | | bulge L4-5. MRI may provide additional information. Job#: [id number] Read | | By: ROSENDO YEBOAH MD Released By: ROSENDO YEBOAH, MDDate: 03/31/2016 07:48 | |demonstrate mild symmetric sclerosis. | | | |L1-2: Within normal limits. | | | |L2-3: Within normal limits. | | | |L3-4: Minimal apparent bulge. No canal or foraminal narrowing is seen. | | | |L4-5: Mild posterior bulge apparent without obvious canal or foraminal narrowing. | | | |L5-S1: At the medial margin of the right L5 facet a lucency is noted with an approximate a djacent 4-mm bony density demonstrating sclerotic margins. No canal or foraminal narrowing is seen. | | | |IMPRESSION: | |1. No definite acute finding is identified. At the right L5 facet a 4-mm bone density is n oted adjacent to the medial margin of the facet. This finding could relate to mild degenera tive change. This would be an | |atypical location for fracture; however, | | potentially an age indeterminate fracture could result in similar appearance. | |2. Disk bulge L4-5. MRI may provide additional information. | | | | | | | | | |Read By: ROSENDO YEBOAH MD | | | |Released By: ROSENDO YEBOAH MD | |Date: 03/31/2016 07:48 | | | | | + + documented in this encounter Visit Diagnoses Not on filedocumented in this encounter"
--- OUTSIDE RECORDS SUMMARY | ~2020-04-06 | XMS | Encounter Summary ---
Demographics + + + | Address | [address] | | | [place] [address] | + + + | Home Phone | | + + + | Preferred Language | Unknown | + + + | Marital Status | | + + + | Restoration Affiliation | Unknown | + + + | Race | Unknown | + + + | Ethnic Group | Unknown | + + + Author + + + | Author | [facility] | | | and Tomasana | + + + | Organization | [facility] | | | and [...] [place] | | | | | [address] | | + + + + + Care Team Providers + +------+ + | Care Twisting Press Operator Name | Role | Phone | + +------+ + | Javon Delgado DO | PCP | | + +------+ + Reason for Visit +--------+ + | Reason | Comments | +--------+ + | LABS | | +--------+ + Encounter Details +--------+ + + + + | Date | Type | Department | Care Team | Description | +--------+ + + + + | 04/03/ | Telephone | [facility] [place] [facility] | Heather Maya | LABS | | 2012 | | MEDICINE [place] | [place] | | | | | [address] | | | | | | [place] | | | | | | [address] | | | | | | [phone] | | | +--------+ + + + [...]
--- OUTSIDE RECORDS SUMMARY | ~2020-04-06 | XMS | Encounter Summary ---
Demographics + + + | Address | [address] | | | [place] [address] | + + + | Home Phone | | + + + | Preferred Language | Unknown | + + + | Marital Status | | + + + | Advent Affiliation | Unknown | + + + | Race | Unknown | + + + | Ethnic Group | Unknown | + + + Author + + + | Author | [facility] | | | and Tomasana | + + + | Organization | [facility] | | | and [...] [place] | | | | | [address] | | + + + + + Care Team Providers + +------+ + | Care Internal Communications Manager Name | Role | Phone | + +------+ + | Jolene Bear | PCP | | + +------+ + Encounter Details +--------+ + + + + | Date | Type | Department | Care Team | Description | +--------+ + + + + | 01/09/ | Episode | [facility] [place] | Meredith Conte, | | | 2017 | Changes | NEUROSURGERY [address] | Cert [place] | | | | | [address] | | | | | | [place] | | | | | | [address] | | | | | | [phone] | | | +--------+ + + + [...]
--- OUTSIDE RECORDS SUMMARY | ~2020-04-06 | XMS | Encounter Summary ---
Demographics + + + | Address | [address] | | | [place] [address] | + + + | Home Phone | | + + + | Preferred Language | Unknown | + + + | Marital Status | | + + + | Jehovah'S Witness Affiliation | Unknown | + + + | Race | Unknown | + + + | Ethnic Group | Unknown | + + + Author + + + | Author | [facility] | | | and Tomasana | + + + | Organization | [facility] | | | and Tomasana [...] [place] | | | | | [address] | | + + + + + Care Team Providers + +------+ + | Care Network Control Supervisor Name | Role | Phone | + [...] [place] | | | | | | [address] | | | | | | [phone] | | | +--------+ + + + [...]
--- OUTSIDE RECORDS SUMMARY | ~2020-04-06 | XMS | Encounter Summary ---
Demographics + + + | Address | [address] | | | [place] [address] | + + + | Home Phone | | + + + | Preferred Language | Unknown | + + + | Marital Status | | + + + | Zoroastrian Affiliation | Unknown | + + + | Race | Unknown | + + + | Ethnic Group | Unknown | + + + Author + + + | Author | [facility] | | | and Tomasana | + + + | Organization | [facility] | | | and Tomasana | [...] [place] | | | | | [address] | | + + + + + Care Team Providers + +------+ + | Care Pricing Actuary Name | Role | Phone | + [...] + | 01/02/ | Telephone | [facility] | Dario Koehler, | Surgery Appointment | | 2017 | | [address]UR[address]UR[address] | DO [address] | (Scheduling ) | | | | [address] | [address] [place], [place] | | | | | [place], [place] | [id number] | | | | | [address] | | | | | | [phone] | | | +--------+ + + + [...]
--- OUTSIDE RECORDS SUMMARY | ~2020-04-06 | XMS | Encounter Summary ---
Demographics + + + | Address | [address] | | | [place] [address] | + + + | Home Phone | | + + + | Preferred Language | Unknown | + + + | Marital Status | | + + + | Jehovah'S Witness Affiliation | Unknown | + + + | Race | Unknown | + + + | Ethnic Group | Unknown | + + + Author + + + | Author | [facility] | | | and Tomasana | + + + | Organization | [facility] | [...] [place] | | | | | [address] | | + + + + + Care Team Providers + +------+ + | Care Public Health Worker Name | Role | Phone | + [...] + + | 04/26/ | Office | [facility] | Danny Javon Rene, | Anxiety (Primary | | 2012 | Visit | [facility]IC[facility] [place] | DO [address] | Dx); Hypertension; | | | | [address] | [place] | Chronic low back | | | | [place] | [address] | pain; Hypogonadism | | | | [address] | | male | | | | [phone] | | | +--------+---------+ + + + [...] He is started physica l therapy at [facility]. He states that his increased his [...] seen by for his mental health in [place] . He is tried multiple medications. States [...] his medications. His been working with ment pa health providers for his anxiety and depression [...]
--- OUTSIDE RECORDS SUMMARY | ~2020-04-06 | XMS | Encounter Summary ---
Demographics + + + | Address | [address] | | | [place] [address] | + + + | Home Phone [...] | Author | [facility] | | | and Tomasana | + + + | Organization | [facility] | | [...] [place] | | | | | [address] | | + + + + + Care Team Providers + +------+ + | Care Oil Burner Technician Name | Role | Phone | + +------+ + PCP | Unavailable | + +------+ + Encounter Details +--------+ + + + + | Date | Type | Department | Care Team | Description | +--------+ + + + + | 04/25/ | Emergency | [facility] | Osmar Georges DO | Elevated blood | | 2011 | | [facility] | [address] [place] | pressure reading | | | | EMERG[facility]Y [facility]ENTER | [address] [place], [place] | without diagnosis of | | | | [address] | [address] | hypertension; | | | | [place], [place] | [phone] | Vasovagal syncopes; | | | | [address] | | Hematemesis; Rectal | | | | [phone] | | bleeding; Peptic | | | [...]
--- OUTSIDE RECORDS SUMMARY | ~2020-04-06 | XMS | Encounter Summary ---
Demographics + + + | Address | [address] | | | [place] [address] | + + + | Home Phone | | + + + | Preferred Language | Unknown | + + + | Marital Status | | + + + | Lutheran Affiliation | Unknown | + + + | Race | Unknown | + + + | Ethnic Group | Unknown | + + + Author + + + | Author | [facility] | | | and Tomasana | + + + | Organization | [facility] | | | and Tomasana [...] [place] | | | | | [address] | | + + + + + Care Team Providers + +------+ + | Care Planer Mill Grader Name | Role | Phone | + [...] [address] | [address] [place], [place] | radiculopathy, | | | | [place], [place] | [address] | lumbar region | | | | [address] | | (Primary Dx); | | | | [phone] | | Stenosis, spinal, | | | [...]
--- OUTSIDE RECORDS SUMMARY | ~2020-04-06 | XMS | Encounter Summary ---
Demographics + + + | Address | [address] | | | [place] [address] | + + + | Home Phone | | + + + | Preferred Language | Unknown | + + + | Marital Status | | + + + | Protestant Affiliation | Unknown | + + + | Race | Unknown | + + + | Ethnic Group | Unknown | + + + Author + + + | Author | [facility] | | | and Tomasana | + + + | Organization | [facility] [...] [place] | | | | | [address] | | + + + + + Care Team Providers + +------+ + | Care Mold Repair Technician Name | Role | Phone | [...] [place] | | | | | | [address] | | | | | | [phone] | | | +--------+ + + + [...]
--- OUTSIDE RECORDS SUMMARY | ~2020-04-06 | XMS | Encounter Summary ---
Demographics + + + | Address | [address] | | | [place] [address] | + + + | Home Phone | | + + + | Preferred Language | Unknown | + + + | Marital Status | | + + + | Orthodox Affiliation | Unknown | + + + | Race | Unknown | + + + | Ethnic Group | Unknown | + + + Author + + + | Author | [facility] | | | and Tomasana | + + + | Organization | [facility] | | | and [...] [place] | | | | | [address] | | + + + + + Care Team Providers + +------+ + | Care Stock Turner Name | Role | Phone | + [...] | Wojciech Lamb MD | [address] | | | | | midline low | [address] | [place], | | | | | back pain | [address] | [place] | | | | | with | [place], | [address] | | | | | left-sided | [place] [address] | Phone: | | | | | sciatica | Phone: | [phone] | | | | | Lumbar | [phone] | Fax: | | | | | radiculopath | Fax: | [phone] | | | | | y Annular | [phone] | | | | | | tear [...] | Wojciech Lamb MD | [address] | | | | | midline low | [address] | [place], | | | | | back pain | [address] | [place] | | | | | with | [place], | [address] | | | | | left-sided | [place] [address] | Phone: | | | | | sciatica | Phone: | [phone] | | | | | Lumbar | [phone] | Fax: | | | | | radiculopath | Fax: | [phone] | | | | | y Annular | [phone] | | | | | | tear [...] + + | 09/14/ | Hospital | [facility] | Wojciech Bowie, | Chronic midline low | | 2016 | Encounter | [facility] MRI [address] | MD [address] | back pain with | | | | [place], | [place], [place] | left-sided sciatica; | | | | [place] [address] | [address] | Lumbar | | | | [phone] | | radiculopathy; | | | | [...] with left leg numbness and weakness | [facility] | | COMPARISON: Lumbar CT March 2016, [...] [address] | [place] | [phone] | | [facility] | | [address] | | | - IMAGING | | [...]
--- OUTSIDE RECORDS SUMMARY | ~2020-04-06 | XMS | Encounter Summary ---
Demographics + + + | Address | [address] | | | [place] [address] | + + + | Home Phone | | + + + | Preferred Language | Unknown | + + + | Marital Status | | + + + | Caodaism Affiliation | Unknown | + + + | Race | Unknown | + + + | Ethnic Group | Unknown | + + + Author + + + | Author | [facility] | | | and Tomasana | + + + | Organization | [facility] | | | [...] [place] | | | | | [address] | | + + + + + Care Team Providers + +------+ + | Care Sports Bookmaker Name | Role | Phone | + [...] [address] | [address] [place], [place] | hyperlipidemia type | | | | [place], [place] | [address] | (Primary Dx); | | | | [address] | | Chronic low back | | | | [phone] | | pain, unspecified | | | [...] [address] | [place] | [phone] | | [facility] | | [address] | | | - LABORATORY | | [...] | | | | SIMON GERMAN MD ([id number]) | | | | | | on [...]
--- OUTSIDE RECORDS SUMMARY | ~2020-04-06 | XMS | Clinical Summary ---
Demographics + + + | Address | [address] | | | [place] [address] | + + + | Home Phone | | + + + | Preferred Language | Unknown | + + + | Marital Status | | + + + | Gnosticism Affiliation | 1013 | + + + | Race | Unknown | + + + | Ethnic Group | Unknown | + + + Author + + + | Author | [facility] (Historical as of | | | 07-06-19) | + + + | Organization | [facility] (Historical as of | | | 07-06-19) [...] [place] | | | | | [address] | | + + + + + Care Team Providers + +------+ + | Care Electric Motor Repairing Supervisor Name | Role | Phone | [...]
--- OUTSIDE RECORDS SUMMARY | ~2020-04-06 | XMS | Encounter Summary ---
Demographics + + + | Address | [address] | | | [place] [address] | + + + | Home Phone | | + + + | Preferred Language | Unknown | + + + | Marital Status | | + + + | Islam Affiliation | Unknown | + + + | Race | Unknown | + + + | Ethnic Group | Unknown | + + + Author + + + | Author | [facility] | | | and Tomasana | + + + | Organization | [facility] | | | [...] [place] | | | | | [address] | | + + + + + Care Team Providers + +------+ + | Care Manufacturing Intern Name | Role | Phone | [...] [address] | [address] [place], [place] | | | | | [place], [place] | [address] | | | | | [address] | | | | | | [phone] | | | +--------+ + + + [...]
--- OUTSIDE RECORDS SUMMARY | ~2020-04-06 | XMS | Encounter Summary ---
Demographics + + + | Address | [address] | | | [place] [address] | + + + | Home Phone | | + + + | Preferred Language | Unknown | + + + | Marital Status | | + + + | Confucianist Affiliation | Unknown | + + + | Race | Unknown | + + + | Ethnic Group | Unknown | + + + Author + + + | Author | [facility] | | | and Tomasana | + + + | Organization | [facility] | | | and [...] [place] | | | | | [address] | | + + + + + Care Team Providers + +------+ + | Care Cdl Instructor Name | Role | Phone | + +------+ + | Jolene Bear | PCP | | + +------+ + Encounter Details +--------+ + + + + | Date | Type | Department | Care Team | Description | +--------+ + + + + | 08/15/ | Abstract | [facility] [place] | Wojciech Bowie, | | | 2015 | | PHYSIATRY [address] | MD [address] | | | | | [address] | [place] | | | | | [place] | [address] | | | | | [address] | | | | | | [phone] | | | +--------+ + + + [...]
--- OUTSIDE RECORDS SUMMARY | ~2020-04-06 | XMS | Encounter Summary ---
Demographics + + + | Address | [address] | | | [place] [address] | + + + | Home Phone | | + + + | Preferred Language | Unknown | + + + | Marital Status | | + + + | Pentecostalism Affiliation | Unknown | + + + | Race | Unknown | + + + | Ethnic Group | Unknown | + + + Author + + + | Author | [facility] | | | and Tomasana | + + + | Organization | [facility] | | | and [...] [place] | | | | | [address] | | + + + + + Care Team Providers + +------+ + | Care Auto Camp Attendant Name | Role | Phone | + [...] [address] | [address] [place], [place] | | | | | [place], [place] | [address] | | | | | [address] | | | | | | [phone] | | | +--------+ + + + [...]
--- OUTSIDE RECORDS SUMMARY | ~2020-04-06 | XMS | Clinical Summary ---
Demographics + + + | Address | [address] | | | [place] [address] | + + + | Home Phone | | + + + | Preferred Language | Unknown | + + + | Marital Status | | + + + | Temple Affiliation | Unknown | + + + | Race | Unknown | + + + | Ethnic Group | Unknown | + + + Author + + + | Author | [facility] | | | and Tomasana | + + + | Organization | [facility] | | | and [...] [place] | | | | | [address] | | + + + + + Care Team Providers + +------+ + | Care Talent Coordinator Name | Role | Phone | + [...] | [employer] | [facility] | [id number] | | [phone] | | [employer] | [...] | 1980 | [phone] | [place] [address] | | | lenora | | | 1 (Home) | | + +--------+ +--------+ + + Advance Directives + + + + + | Type | Date Recorded | Patient | Explanation | | | | Dredge Mate | | + + + + + | Power of | | | | | Professor Of Musicology | | | | + + + + + | Advance | 02/01/2017 1:45 | | | | Directive | PM | | | + + + + +
--- OUTSIDE RECORDS SUMMARY | ~2020-04-06 | XMS | Encounter Summary ---
Demographics + + + | Address | [address] | | | [place] [address] | + + + | Home Phone | | + + + | Preferred Language | Unknown | + + + | Marital Status | | + + + | Jainism Affiliation | Unknown | + + + | Race | Unknown | + + + | Ethnic Group | Unknown | + + + Author + + + | Author | [facility] | | | and Tomasana | + + + | Organization | [facility] | | | and Tomasana | + + + | Address | Unknown | + + + | Phone | Unavailable | + + + Support + + + + + | Name | Relationship | Address | Phone | + + + + + | Kendrikc Majano | ECON | [address] | | | | | [place] | | | | | [address] | | + + + + + Care Team Providers + +------+ + | Care Manager Transplant Name | Role | Phone | + [...] [place], | | | | | [place], [place] | [place] [address] | | | | | [address] | [phone] | | | | | [phone] | | | +--------+ + + + [...]
--- OUTSIDE RECORDS SUMMARY | ~2020-04-06 | XMS | Encounter Summary ---
Demographics + + + | Address | [address] | | | [place] [address] | + + + | Home Phone [...] Author | [facility] | | | and Tomasana | + + + | Organization | [facility] | | | and Tomasana [...] [place] | | | | | [address] | | + + + + + Care Team Providers + +------+ + | Care Bander And Cellophaner Helper Machine Name | Role | Phone | + [...] | | | | @ [facility] | [place], | [address] | | | | | Fax report | [place] [address] | [facility], [place] | | | | | Procedures | Phone: | [address] Phone: | | | | | OFFICE VISIT | [phone] | [phone] | | | | | REGULAR | Fax: | Fax: | | | | | | [phone] | [phone] | +--------+--------+ + + + + Encounter [...] [address] | [place] [address] | | | | | [address] [place] | [phone] | | | | | [place] [address] | | | | | | [phone] | | | +--------+---------+ + + + [...]
--- OUTSIDE RECORDS SUMMARY | ~2020-04-06 | XMS | Encounter Summary ---
Demographics + + + | Address | [address] | | | [place] [address] | + + + | Home Phone | | + + + | Preferred Language | Unknown | + + + | Marital Status | | + + + | Mu-Ism Affiliation | Unknown | + + + | Race | Unknown | + + + | Ethnic Group | Unknown | + + + Author + + + | Author | [facility] | | | and Tomasana | + + + | Organization | [facility] | | | and [...] [place] | | | | | [address] | | + + + + + Care Team Providers + +------+ + | Care Forestry Patrolman Name | Role | Phone | + +------+ + | Provider Not, In System | PCP | Unavailable | + +------+ + Encounter Details +--------+ + + + + | Date | Type | Department | Care Team | Description | +--------+ + + + + | 03/30/ | [facility] | FELICIA STEELE | [place] | | | 2016 | Encounter | HOSPITAL EM[facility]Y | JANETH Meeks [address] | | | | | CENTER [address] | [address] [place], | | | | | [place] | [place] [address] | | | | | [address] | [phone] | | | | | [phone] | | | +--------+ + + + [...] - 1.030 | EXTERNAL | | | [place], | | | LAB | | | [...] L4-5. MRI may provide additional information. Job#: [id number] Read | | By: ROSENDO YEBOAH MD [...]
--- OUTSIDE RECORDS SUMMARY | ~2020-04-06 | XMS | Encounter Summary ---
Demographics + + + | Address | [address] | | | [place] [address] | + + + | Home Phone | | + + + | Preferred Language | Unknown | + + + | Marital Status | | + + + | Religion Affiliation | Unknown | + + + | Race | Unknown | + + + | Ethnic Group | Unknown | + + + Author + + + | Author | [facility] | | | and Tomasana | + + + | Organization | [facility] | [...] [place] | | | | | [address] | | + + + + + Care Team Providers + +------+ + | Care Wildlife Science Professor Name | Role | Phone | + [...] PHYSIATRY [address] | MD [address] | | | | | [address] | [place] | | | | | [place] | [address] | | | | | [address] | | | | | | [phone] | | | +--------+ + + + [...]
[~2020-04-06 00:11] MED LIST changes: +DOXYCYCLINE HY100 MG PO; +VYVANSE70 MG PO
--- OUTSIDE RECORDS SUMMARY | 2020-04-06 00:14 | XMS ---
PreManage Notification: ERIKA SHEIKH Security Testing Analyst Events No recent Security Events currently on file CRITERIA MET - Group Notification - History of Sepsis Dx - PDMP CARE PROVIDERS There are no care providers on record at this time. Keisha has no Care Guidelines for this patient. EGeraldDGerald VISIT COUNT (12 MO.) 2 [facility] Williamson TOTAL 2 NOTE: Visits indicate total known visits. ED/UCC VISIT TRACKING (12 MO.) 04/06/2020 00:11 [facility] TYPE: Emergency COMPLAINT: - POSS INFECTION IN FOOT 12/31/2019 13:50 [facility] TYPE: Emergency COMPLAINT: - LT LEG PAIN INPATIENT VISIT TRACKING (12 MO.) 12/31/2019 16:50 [facility] TYPE: Medical Surgical COMPLAINT: - SEPSIS DIAGNOSES: - Obstructive sleep apnea (adult) (pediatric) - Opioid dependence, in remission - Body mass index (BMI) 40.0-44.9, adult - Attention-deficit hyperactivity disorder, unspecified type - Allergy status to other drugs, medicaments and biological sub - Nicotine dependence, cigarettes, uncomplicated - Cellulitis of left lower limb - Dorsalgia, unspecified - Thrombocytopenia, unspecified - Other chronic pain - Other termite control representative (current) drug therapy - Allergy status to narcotic agent status - Latex allergy status - Sepsis, unspecified organism - Morbid (severe) obesity due to excess calories [email or web address]
[2020-04-06] MEDS ORDERED: KEFLEX500 MG PO (01:41)
[2020-04-06] MEDS ORDERED: BACTRIM DS TAB1 EACH PO (01:41)
--- NOTE | 2020-04-06 12:37 | EKG ---
[facility] [address] [facility] [place] [address] Signed Sinus tachycardia Right bundle branch block Abnormal ECG When compared with ECG of 05-JAN-2020 12:41, Right bundle branch block has replaced Nonspecific intraventricular block Confirmed by DALLIN MATOS DO ([id number]) on 04/06/2020 12:37:39 PM Electronically Signed By: DALLIN MATOS DO 04/06/20 1237 PATIENT NAME: ERIKA SHEIKH Electrocardiogram DATE OF : 82 PHYSICIAN: DALLIN MATOS DO REPORT #: [id number] REPORT IS CONFIDENTIAL AND NOT TO BE RELEASED WITHOUT AUTHORIZATION
== END 2020-04-06 03:03 | disposition home or self-care (01) ==
LOC: ED 00:11
DX: L03.116 Cellulitis of left lower limb (principal); F17.200 Nicotine dependence, unspecified, uncomplicated; Z91.040 Latex allergy status; Z88.5 Allergy status to narcotic agent
CPT/HCPCS: 71045; 73630; 80053; 81001; 83605; 85025; 90471; 90715; 93005; 93010; 93971; 96374; 99284-25; J3370

== ENCOUNTER 2022-06-23 11:38 | Inpatient (IN) | payer OTHER ==
[~2022-06-23] VITALS: Ht 190.5 cm; Wt 163.2 kg
[2022-06-27] MEDS ORDERED: BACTRIM DS TAB1 EACH PO (14:55)
--- NOTE | 2022-06-30 13:06 | EKG ---
[facility] [address] [place] [address] Signed Sinus tachycardia Right bundle branch block Inferior infarct , age undetermined Abnormal ECG When compared with ECG of 06-APR-2020 00:34, QRS duration has increased Inferior infarct is now present ST more depressed in Anterior leads T wave inversion more evident in Inferior leads T wave inversion now evident in Anterolateral leads Confirmed by SHAHRZAD CONTRERAS MD ([id number]) on 06/30/2022 1:06:43 PM Electronically Signed By: SHAHRZAD CONTRERAS MD 06/30/22 1306 PATIENT NAME: ERIKA SHEIKH Electrocardiogram DATE OF : 82 PHYSICIAN: SHAHRZAD CONTRERAS MD REPORT #: [id number] REPORT IS CONFIDENTIAL AND NOT TO BE RELEASED WITHOUT AUTHORIZATION
== END 2022-06-27 15:22 | disposition home or self-care (01) | DRG 603 ==
LOC: ED 11:38 → MS 14:50
PROVIDERS: ADMIT Internal Medicine; ATTEND Internal Medicine
DX: L03.116 Cellulitis of left lower limb (principal); E87.1 Hypo-osmolality and hyponatremia; Z68.42 Body mass index [BMI] 45.0-49.9, adult; F11.23 Opioid dependence with withdrawal; Z20.822 Contact with and (suspected) exposure to COVID-19; F15.10 Other stimulant abuse, uncomplicated; E66.01 Morbid (severe) obesity due to excess calories; E86.0 Dehydration; F17.210 Nicotine dependence, cigarettes, uncomplicated; Z88.6 Allergy status to analgesic agent; Z88.8 Allergy status to other drugs, medicaments and biological substances; Z91.040 Latex allergy status; Z90.49 Acquired absence of other specified parts of digestive tract; Z98.890 Other specified postprocedural states
CPT/HCPCS: 36415; 71045; 80048; 80053; 80202; 81001; 83605; 85025; 85610; 85730; 87040; 87502; 93005; 93010; 99284-25; A9270; C9803; J0690; J1650; J1885; J3370; J7060; J7121; Q0177; U0003

== ENCOUNTER 2023-12-26 17:00 | Emergency (ER) | payer OTHER ==
[~2023-12-26] VITALS: Ht 190.5 cm; Wt 178.4 kg
[2023-12-26] MEDS ORDERED: GABAPENTIN300 MG PO (17:31)
[2023-12-26] MEDS ORDERED: TESTOSTERO200 MG/1 M IM (17:31)
[2023-12-26] MEDS ORDERED: POTASSIUM CHLO10 MEQ PO (17:32)
[2023-12-26] MEDS ORDERED: TERBINAFINE HC250 MG PO (17:32)
[2023-12-26] MEDS ORDERED: FUROSEMIDE20 MG PO (17:32)
[2023-12-26] MEDS ORDERED: COLCHICINE0.6 M1 PO (20:52)
[2023-12-26] MEDS ORDERED: COLCHICINE 0.6 MG TAB PO ONE (21:00)
[2023-12-26] MEDS ORDERED: methylPREDNISolone 4 MG HOME.PACK PO ONE (21:00)
[2023-12-26] MEDS ORDERED: HYDROCODONE BIT/ACETAMINOPHEN 5/325 MG 1 TAB HOME.PACK PO ONE (21:00)
[2023-12-26 21:34] VITALS: BP 158/86
== END 2023-12-26 21:35 | disposition home or self-care (01) ==
LOC: ED 17:00
DX: M10.9 Gout, unspecified (principal); F17.200 Nicotine dependence, unspecified, uncomplicated; Z91.040 Latex allergy status; Z88.5 Allergy status to narcotic agent; Z88.8 Allergy status to other drugs, medicaments and biological substances; Z79.890 Hormone replacement therapy; Z79.899 Other long term (current) drug therapy
CPT/HCPCS: 36415; 84550; 85379; 99283; A9270

== ENCOUNTER 2024-01-15 10:17 | Emergency (ER) | payer OTHER ==
[~2024-01-15] VITALS: Ht 190.5 cm; Wt 173.2 kg
[~2024-01-15 10:17] MED LIST changes: +COLCHICINE0.6 M1 PO; +FUROSEMIDE20 MG PO; +GABAPENTIN300 MG PO; +POTASSIUM CHLO10 MEQ PO; +TERBINAFINE HC250 MG PO; +TESTOSTERO200 MG/1 M IM
--- OUTSIDE RECORDS SUMMARY | 2024-01-15 10:18 | XMS ---
PreManage Notification: ERIKA SHEIKH Security Skein Winder Events No recent Security Events currently on file CRITERIA MET - CARLEY - [facility] - 2 Visits in 30 Days CARE PROVIDERS CAROL BUTT Physician Insole Tape Stitcher [place] 04/06/2020-Current PHONE: Unknown -Ashlee- Dentist: Core Sticker [facility] PHONE: [phone] Keisha has no Care Guidelines for this patient. ERaimundo VISIT COUNT (12 MO.) 2 [facility] TOTAL 2 NOTE: Visits indicate total known visits. ED/UCC VISIT TRACKING (12 MO.) 01/15/2024 10:17 [facility] [place] TYPE: Emergency COMPLAINT: - DIFFICULTY BREATHING 12/26/2023 17:01 [facility] [place] TYPE: Emergency COMPLAINT: - POSS BLOODCLOT LOWER L LEG DIAGNOSES: - Allergy status to narcotic agent - Allergy status to other drugs, medicaments and biological substances - Gout, unspecified - Hormone replacement therapy - Latex allergy status - Nicotine dependence, unspecified, uncomplicated - Other automobile locator (current) drug therapy - Pain in left leg - Pain in left toe(s) INPATIENT VISIT TRACKING (12 MO.) No inpatient visits to display in this time frame [email or web address]
[2024-01-15] MEDS ORDERED: ALBUTEROL/IPRATROPIUM 3 ML NEB INH ONE ×2 (10:30→15:00)
[2024-01-15 10:43] LABS: BASOPHILS 0.1 % (0-2); HEMATOCRIT 47.6 % (35.0-50.0); HEMOGLOBIN 15.1 g/dL (12.0-18.0); LYMPHOCYTES 10.8 % (24-44); MCH 26.5 (27-36); MCHC 31.7 g/dl (30-36); MCV 83.6 fl (81-99); NEUTROPHILS 77.1 % (39-80); PLATELET COUNT 131 K/uL (140-440); RBC 5.69 M/ul (4.3-5.7); RDW 16.4 (10.5-15.0)
[2024-01-15 10:59] LABS: ALBUMIN 3.1 g/dL (3.4-5.0); ALBUMIN/GLOBULIN RATIO 0.74 (1.1-2.4); ANION GAP 12.7 (7-21); BILIRUBIN, TOTAL 0.7 ng/dL (0.2-1.0); CREATININE, SERUM 0.75 mg/dL (0.70-1.30); POTASSIUM 4.7 mmol/L (3.5-5.1); PROTEIN, TOTAL 7.3 g/dL (6.4-8.2)
[2024-01-15 11:02] LABS: INFLUENZA B NAA NEGATIVE (NEGATIVE); RESPIRATORY SYNCYTIAL VIR NAA NEGATIVE (NEGATIVE)
[2024-01-15] MEDS ORDERED: predniSONE 20 MG TAB PO ONE (11:15)
[2024-01-15] MEDS ORDERED: ALBUTEROL SULFATE 0.083% 3 ML VIAL INH ONE (12:00)
[2024-01-15] MEDS ORDERED: PREDNISONE20 MG PO (13:00)
[2024-01-15] MEDS ORDERED: VENTOLIN HFA18 GM INH (13:00)
[2024-01-15] MEDS ORDERED: ACETAMINOPHEN 500 MG TAB PO ONE (14:00)
[2024-01-15] MEDS ORDERED: ACETAMINOPHEN 500 MG TAB ONE (14:03)
[2024-01-15 16:15] VITALS: BP 142/99
== END 2024-01-15 16:15 | disposition home or self-care (01) ==
LOC: ED 10:17
PROVIDERS: Emergency Medicine
DX: J10.1 Influenza due to other identified influenza virus with other respiratory manifestations (principal); F17.200 Nicotine dependence, unspecified, uncomplicated; Z91.040 Latex allergy status; Z88.5 Allergy status to narcotic agent; Z88.8 Allergy status to other drugs, medicaments and biological substances; Z79.890 Hormone replacement therapy; Z79.899 Other long term (current) drug therapy
CPT/HCPCS: 36415; 71045; 80053; 85025; 87502; 94640; A9270; J7512; U0002